=== PATIENT | female | born 1960 | race African-American/Black ===

== ENCOUNTER 2016-11-09 11:28 | Inpatient (IN) ==
[2016-11-09] MEDS ORDERED: SODIUM CHLORIDE 0.9% 500 ML IV STA (12:00)
[2016-11-09] MEDS ORDERED: ONDANSETRON 4 MG/2 ML VIAL IV STA (12:00)
[2016-11-09] MEDS ORDERED: hydrALAZINE 20 MG/1 ML VIAL IV STA ×2 (12:01→15:04)
[2016-11-09] MEDS ORDERED: OXYMETAZOLINE 0.05% NASAL SPRAY 15 ML BOTTLE BOTH NARES STA (12:01)
[2016-11-09] MEDS ORDERED: OXYMETAZOLINE 0.05% NASAL SPRAY 15 ML BOTTLE ONE (12:02)
[2016-11-09] MEDS ORDERED: hydrALAZINE 20 MG/1 ML VIAL ONE ×3 (12:02→15:17)
[2016-11-09] MEDS ORDERED: ONDANSETRON 4 MG/2 ML VIAL ONE ×2 (12:02→14:57)
--- NOTE | 2016-11-09 12:08 | Emergency Department Note ---
Jorge Luis Marlow Meredith, am scribing for, and in the presence of, Josh Barrientos MD 12: 01. Iliana Marlow James D, MD, personally performed the services described in this documentation, ascribed by Miranda Kang in my presence, and it is both accurate and complete . Arrival - Arrival Chief Complaint: Nausea/Vomiting/Diarrhea Stated Complaint: projectile vomiting ED Nursing Triage Note: Patient transferred from [facility] with vomiting that started last night times two and persistent vomiting this morning without coffee ground emesis or bright red blood present in her vomit. Mode of Arrival: Stretcher Limitations: Altered Mental Status (non-verbal) Source: Old Records Reviewed, RN Notes Reviewed Time Seen by Provider: 11/09/16 12:00 - History of Present Illness HPI Narrative: Pt is a 55 y/o black female transferred to the ED by EMS from [facility] with nausea and persistent vomiting which onset last night. She has not had coffee ground emesis or hematemesis. Pt has a history of PVD, HTN, NIDDM, pneumonia, GERD, and left AKA. Onset (ago): day(s) Allergies/Adverse Reactions: Allergies Allergy/AdvReac Type Severity Reaction Status Date / Time No Known Allergies Allergy Unverified 07/31/16 20:08 Home Medications: Home Medications Medication Instructions Recorded Confirmed Type Carvedilol 25 mg PEG BID 11/09/16 11/09/16 History Esomeprazole Magnesium 20 mg PEG 1600 11/09/16 11/09/16 History [Esomeprazole] Insulin Glargine [Lantus] 14 unit SUBCUT 1800 11/09/16 11/09/16 History Isosorbide Dinitrate [Isordil] 20 mg PEG TID 11/09/16 11/09/16 History Lisinopril 20 mg PEG 0800 11/09/16 11/09/16 History amLODIPine [Norvasc] 10 mg PEG 0800 11/09/16 11/09/16 History hydrALAZINE TAB [Apresoline Tab] 50 mg PEG TID 11/09/16 11/09/16 History Review of System - Review of System ROS unobtainable: other (non-verbal) 12 point system: reviewed and no additional remarkable complaints except as stated - Review of System Gastrointestinal: Present: as per HPI, nausea, vomiting. Absent: hematemesis Medical,Surgical,& Family Hx - Medical History Cardio: History of: Hypertension, PVD Endocrine: History of: Diabetes Mellitus (NIDDM) Respiratory: History of: Pneumonia Gastrointestinal: History of: GERD, GI Problems (constipation; PEG tube) Musculoskeletal: History of: Amputation (left AKA) - Surgical History Abdominal Surgeries: Patient denies: Splenectomy - Family History Family History: Reports;: Family Hypertension - Social History Smoking Status: Never smoker Frequency of Alcohol Use: Unknown Type of Drug Use: None Exam Physical Examination: GENERAL: This is chronically ill appearing black female in no apparent distress. VITAL SIGNS: Temperature: 97.5, Pulse: 75, Respirations: 22, Blood pressure: 171 /105, O2 Saturation: 97 HEENT: Head is normocephalic and atraumatic. Pupils are equally round and reactive to light. Extraocular movement are intact. Oropharynx is benign with moist mucous membranes. NECK: Neck is soft and supple without tenderness. There are no masses. There is no lymphadenopathy. LUNGS: Lungs are clear to auscultation bilaterally. Chest rises symmetrically. There is no chest wall tenderness. CV: Heart is regular rate and rhythm without murmurs, rubs, or gallops. ABDOMEN: Abdomen is soft, non-tender to palpation. There are no abnormal masses palpated. There is no organomegaly. Bowel sounds are present and active. PEG tube in the epigastrium noted. SKIN: Skin is warm and dry. No rash. EXTREMITIES: Patient has full range of motion without tenderness. There is no pedal edema. Left AKA. NEUROLOGIC: Awake and alert. At baseline mental status. Cranial nerves II through XII are grossly intact. Right leg flexion contractures. PSYCHIATRIC: Normal affect. Normal mood. Vital Signs: Vital Signs Temperature 97.9 F 11/09/16 11:31 Pulse Rate 77 11/09/16 14:40 Respiratory Rate 20 11/09/16 14:40 Blood Pressure 156/96 11/09/16 14:40 O2 Sat by Pulse Oximetry 98 11/09/16 14:40 - General Exam limited due to: other (non-verbal) Course - Consultations Consultation #1: Discussed with hospitalist. Patient will be admitted to their service. Time: 14:42 Results - Labs CBC & BMP: 11/09/16 14:41 11/09/16 14:41 Lab Results: I have reviewed the patients labs - Diagnostic Findings Procedure: Chest x-ray: report reviewed by me (There is mild to moderate distention of the transverse and sigmoid colon which may reflect ileus. Gastrostomy tube projects over the left upper quadrant. Diffuse osteopenia. ) Disposition Clinical Impression: Nausea & vomiting, Dementia, Diabetes mellitus, Suspect aspiration pneumonitis , Dehydration, Hypernatremia Case discussed with: patient Disposition: Still a Patient Condition: Stable Time of Disposition: 15:38
--- NOTE | 2016-11-09 12:55 | XRay Report ---
XR abdomen complete w decub Indication: Nausea, vomiting and diarrhea Comparison: Abdominal x-ray dated July 31, 2016 Technique: Frontal views of the abdomen in supine and lateral decubitus positions. Findings: There is mild to moderate distention of the transverse and sigmoid colon which may reflect ileus. Continued imaging follow-up is recommended as early sigmoid volvulus may have this appearance. Gastrostomy tube projects over the left upper quadrant. Diffuse osteopenia. IMPRESSION: As above. PROCEDURE INTERPRETED AT [facility] DEPARTMENT OF RADIOLOGY Final Report Signed by: Dr Freedom Freeman
[2016-11-09] MEDS ORDERED: THIAMINE 200 MG/2 ML VIAL ONE (13:42)
[2016-11-09] MEDS ORDERED: LORazepam 2 MG/1 ML VIAL ONE ×2 (13:43→14:58)
--- NOTE | 2016-11-09 14:30 | Post Interventional Procedure ---
Pre-op diagnosis: No PIV access, CVA, gastroenteritis Post-op diagnosis: same Procedure: PICC RUE after multiple failed attempts at placing US guided PIV Radiologist: Ceasar Gonzalez Anesthesia: local Specimens: none sent Estimated blood loss: none Complications: none Condition: stable
[2016-11-09] MEDS ORDERED: PIPERACILLIN/TAZOBACTAM 3,375 MG in SODIUM CHLORIDE 0.9% 100 ML IV STA (14:34)
[2016-11-09] MEDS ORDERED: LORazepam 2 MG/1 ML VIAL IV STA (14:53)
[2016-11-09] MEDS ORDERED: PIPERACILLIN/TAZOBACTAM 3,375 MG VIAL IV ONE (14:57)
[2016-11-09] MEDS ORDERED: SODIUM CHLORIDE 0.9% 1,000 ML IV SCH ×2 (15:00→16:00)
[2016-11-09 15:03] LABS: Basophils % 0.2 % (0.0-0.8); Eosinophils # 0.1 10*3/uL (0.0-0.87); Eosinophils % 0.7 % (0.00-10.9); Hematocrit 34.3 VOL% (35.7-47.0); Hemoglobin 10.9 GM/DL (12.0-16.0); Immature Granulocytes % 0.3 %; Immature Granulocytes Absolute 0.03 #; Lymphocytes # 0.7 10*3/uL (1.4-4.0); Lymphocytes % 6.8 % (21.3-54.2); Mean Corpuscular HGB Conc 31.8 GM/DL (32-36); Mean Corpuscular Hemoglobin 31 PG (27-34); Mean Corpuscular Volume 96.6 FL (87-102); Mean Platelet Volume 11.7 FL (9.6-12.0); Monocytes # 0.7 10*3/uL (0.11-0.8); Monocytes % 6.6 % (1.7-12.7); Neutrophils # 8.5 10*3/uL (1.4-7.4); Neutrophils % 85.4 % (38.7-73.9); Platelet Count 247 T/CUMM (130-400); Red Blood Count 3.55 MC/CUMM (3.8-5.5); Red Cell Distribution Width 16.3 % (9.3-17.3)
--- NOTE | 2016-11-09 15:07 | Interventional Radiology Rpt ---
IR PICC line insertion, US guide vascular access Indication: No peripheral IV access. PICC LINE AT BEDSIDE Description: A formal timeout was performed. Maximum sterile barrier technique was used. Sonographic evaluation of the right upper extremity demonstrates patent and compressible brachial vein. The upper arm was prepped and draped in sterile fashion. 3 cc 1% lidocaine was administered subcutaneously. Under sonographic guidance, a micropuncture needle was advanced into the vein. A captured sonographic image documents the position of the needle. Needle was exchanged over a wire for a peel-away sheath. Guidewire was advanced centrally to a depth of 40 cm. A dual lumen power PICC, 35 cm long, was advanced over the wire. The wire and sheath were removed. Portable chest x-ray was obtained documenting position of the catheter tip at the RA-SVC junction. Both ports of the PICC were aspirated and flushed with heparinized saline. The device was secured with a StatLock. Impression: PICC line ready for immediate use. Routine catheter care. Chest radiograph detailed above post procedure. PROCEDURE INTERPRETED AT [facility] DEPARTMENT OF RADIOLOGY Final Report Signed by: Ceasar Gonzalez M.D.
[2016-11-09 15:24] LABS: Alanine Aminotransferase 52 U/L (13-56); Albumin 3.5 G/DL (3.4-5.0); Alkaline Phosphatase 140 U/L (45-117); Aspartate Amino Transferase 26 U/L (0-37); Bilirubin,Total < 0.39 MG/DL (0.2-1.0); Blood Urea Nitrogen 32 MG/DL (7-18); Calcium 9.6 MG/DL (8.5-10.1); Glucose 132 MG/DL (74-106); Osmolality,Calculated 307.9 MOS/KG (273-304); Potassium 3.8 MMOL/L (3.5-5.1); Sodium 151 MMOL/L (136-145); Total Protein 7.8 G/DL (6.4-8.3)
[2016-11-09] MEDS ORDERED: ACETAMINOPHEN 325 MG TABLET PO PRN (15:47)
[2016-11-09] MEDS ORDERED: ONDANSETRON 4 MG/2 ML VIAL IV PRN (15:47)
[2016-11-09] MEDS ORDERED: ENOXAPARIN 40 MG/0.4 ML SYRINGE SUBCUT SCH (16:00)
[2016-11-09 17:00] LABS: ABG Base Excess 4.1 MMOL/L (-2.5-2.5); ABG HCO3 28.1 MMOL/L (20-26); ABG Oxygen Saturation 96.9 % (95-100); ABG PCO2 39.5 MM HG (35-48); ABG PH 7.461 (7.35-7.45); ABG PO2 81.3 MM HG (80-95); ABG TCO2 25.3 MMOL/L (23-27); Allen Test Positive; Pt O2 Delivery Device Room Air
--- NOTE | 2016-11-09 18:20 | XRay Report ---
History: Vomiting Date: 11/09/2016 Study: Chest x-ray single view Comparison exam: Chest x-ray August 01, 2016 The right PICC line is well-positioned with its tip over the atriocaval junction region. There is continued mild cardiomegaly. The mediastinal contour is unchanged. The pulmonary vasculature is not engorged. There is a probable underlying mild to moderate hiatal hernia. There is no gross pleural effusion. The lungs are generally clear. Shallow breath. Osseous structures are unchanged. There is mild thoracic spondylosis and mild osteopenia. Impression: No definite acute process. Satisfactory positioning of the right PICC line. Stable cardiomegaly PROCEDURE INTERPRETED AT [facility] DEPARTMENT OF RADIOLOGY Final Report Signed by: Dr. Kristin Flores
[2016-11-09] MEDS ORDERED: DEXTROSE 50% 25 GM/50 ML VIAL IV PRN (18:25)
[2016-11-09] MEDS ORDERED: GLUCAGON 1 MG VIAL IM PRN (18:25)
--- NOTE | 2016-11-09 18:35 | Fluoroscopy Report ---
History: Sigmoid volvulus Date: 11/09/2016 Study: Single contrast Gastrografin enema Comparison exam: No previous similar The acquisition analyst film shows a large amount of stool overlying the rectum. There is no lucien bowel obstruction. A PEG tube overlies the left upper abdomen. Dilute Gastrografin was instilled in a retrograde fashion under intermittent fluoroscopy. The colon was evaluated to the hepatic flexure level. The patient could not retain barium, limiting evaluation of the right colon. 1.08 minutes fluoroscopy time was utilized. This radiologist provided personal supervision of the procedure. There is a large amount of retained stool in the rectum and colon suggesting constipation. There are some occasional scattered diverticula. There is no evidence of sigmoid volvulus. There is no evidence of gross mass lesion or obstruction from the level of the rectum to the hepatic flexure. There is no abnormal distention of the right colon to indirectly suggest colonic obstruction otherwise. Impression: No evidence of sigmoid volvulus. Large amount of retained stool in the rectum and colon suggesting constipation. Diverticulosis. Incomplete evaluation of the right colon because of patient's inability to retain the contrast, though there is no indirect evidence to suggest colonic obstruction otherwise PROCEDURE INTERPRETED AT [facility] DEPARTMENT OF RADIOLOGY Final Report Signed by: Dr. Kristin Flores
[2016-11-09 19:57] LABS: Hematocrit 32.5 VOL% (35.7-47.0); Hemoglobin 10.1 GM/DL (12.0-16.0)
[2016-11-09] MEDS: PANTOPRAZOLE 40 MG VIAL IV SCH (20:53)
[2016-11-09] MEDS: CARVEDILOL 25 MG TABLET PEG SCH ×2 (20:53→21:26)
[2016-11-09] MEDS: ISOSORBIDE DINITRATE 20 MG TABLET PEG SCH ×2 (20:53→21:26)
[2016-11-09] MEDS: INSULIN GLARGINE 100 UNIT/ML SUBCUT SCH (20:53)
--- NOTE | 2016-11-09 20:57 | Gastrointestinal Consult Note ---
Assessment and Plan (1) Coffee ground emesis Status: Acute Assessment and plan: This patient does have a fair amount of emesis noted suctioning from her PEG tube. This may be secondary to the previous nausea and vomiting with a Prema- Xiao tear, there may be peptic ulcer disease, gastritis, AVMs in the stomach, or potentially gastric cancer. Occasionally the PEG tube will actually produce a pressure necrosis ulcer on the contralateral wall as well and we will examine for this. Note that the patient's last upper endoscopy done 2012 for nausea and vomiting did not show much. I would avoid anticoagulation in this patient and I agree with the use of Protonix twice daily. We will likely proceed with upper endoscopy on 11/11/16 to find an etiology for the coffee-ground emesis and anemia. Risks and benefits were discussed with the patient's who is at the bedside and include but are not limited to: Bleeding, infection, cardiac/ pulmonary compromise, and perforation. Current Visit: Yes (2) Dysphagia as late effect of cerebrovascular accident (CVA) Status: Acute Assessment and plan: This patient had a PEG tube placed probably about 5 years ago before going to the longterm. This is been replaced multiple times. The current PEG tube is actually quite small. If we need to replace this we will certainly replaced with a 20 Portuguese PEG tube possibly endoscopically. Current Visit: Yes (3) Anemia, posthemorrhagic, acute Status: Acute Assessment and plan: Patient's hematocrit is only down to 32% she certainly does not need a transfusion this point we will continue to monitor her level as she continues rehydrating her and consider transfusion if necessary. Current Visit: Yes (4) Chronic constipation Status: Acute Assessment and plan: The patient was thought to have a volvulus today and did go to a Hypaque barium enema in order to disprove this. The barium was not well retained however it does not appear there is any gross evidence of a sigmoid volvulus. There is simply chronic constipation and the patient will need to be able to come off of NG tube suctioning in order to undergo treatment with MiraLAX twice daily to help remedy the constipation. This may be related to the patient's prior iron intake. We will hold tube feedings for the present time while patient is on suction to her PEG tube in the short-term. She may benefit from IV Reglan if this becomes persistent. Current Visit: Yes History of Present Illness Chief complaint: coffee-ground emesis, anemia, constipation, no sigmoid volvulus History of present illness: Ms. Braxton is a 55 year old female who has a history of referral to our ER from [facility] with the patient is attended by Dr. Seng Elizabeth. She started developing acute onset of "projectile vomiting" starting at about 11 o' clock this morning. When she did not respond to initial medications at their institution she was sent to the emergency room for evaluation. There she was described as having coffee-ground emesis and indeed on suctioning of the stomach via the PEG tube she evidences at least 500 mL of coffee-ground material. The patient had nausea and vomiting issues going back to the last upper endoscope done by Dr. Ferguson on 05/24/13 for persistent nausea and vomiting and this demonstrated normal mucosa of the esophagus stomach and duodenum. The pyloric channel also appeared normal. Dr. Ferguson did not feel this was an acid related phenomenon but a motility issue. The patient was taken to CT scanning and there was some concern over possible sigmoid volvulus but the colon appeared relatively normal with some constipation noted. Her stools are dark black and mildly guaiac-positive in keeping with iron intake with some GI bleeding. The patient's hematocrit has dropped from 34.3% to 32.5 % over a period of 4 hours. The white blood cell count is only 10.0 on admission in a patient with a sodium of 151 indicating potential dehydration but a BUN and creatinine of 32 and 0.9. does admit the patient has constipation at baseline. Lipase level was 162. UA is pending. The patient herself is spitting some clearish secretions from her mouth, states that she is recently been started on CPAP over the last 1 month. Home Medications Medication Instructions Recorded Confirmed Type Carvedilol 25 mg PEG BID 11/09/16 11/09/16 History Esomeprazole Magnesium 20 mg PEG 1600 11/09/16 11/09/16 History [Esomeprazole] Ferrous Sulfate Liquid [Feosol 300 mg PO TID 11/09/16 11/09/16 History Liquid] Insulin Glargine [Lantus] 14 unit SUBCUT 1800 11/09/16 11/09/16 History Isosorbide Dinitrate [Isordil] 20 mg PEG TID 11/09/16 11/09/16 History Lisinopril 20 mg PEG 0800 11/09/16 11/09/16 History Magnesium Hydroxide Susp [Milk of 30 ml PO DAILY 11/09/16 11/09/16 History Magnesia] Multivit &Minerals/Ferrous Fum 9 mg PO DAILY 11/09/16 11/09/16 History [Multivitamin Liquid] Polyethylene Glycol Powder 17 gm PO MOWEFR 11/09/16 11/09/16 History [Miralax] amLODIPine [Norvasc] 10 mg PEG 0800 11/09/16 11/09/16 History hydrALAZINE TAB [Apresoline Tab] 50 mg PEG TID 11/09/16 11/09/16 History Allergies Allergy/AdvReac Type Severity Reaction Status Date / Time No Known Allergies Allergy Unverified 07/31/16 20:08 Medical,Surgical,& Family Hx - Medical History Cardio: History of: Hypertension, PVD Neurology: History of: Cerebrovascular Accident Endocrine: History of: Diabetes Mellitus (NIDDM) Respiratory: History of: Pneumonia Gastrointestinal: History of: GERD, GI Problems (constipation; PEG tube) Musculoskeletal: History of: Amputation (left AKA) - Surgical History Abdominal Surgeries: Patient denies: Splenectomy - Family History Family History: Reports;: Family Hypertension - Social History Smoking Status: Unknown if ever smoked Frequency of Alcohol Use: Unknown Type of Drug Use: None ROS unobtainable: due to dementia, other (severe expressive aphasia post stroke) Exam - Constitutional Vitals: Period Temp Pulse Resp BP Sys/Altamirano Pulse Ox Last 24 Hr 97.5 F 84-89 16-20 120-153/67-98 97-100 General appearance: mild distress Exam: Constitutional: Well-developed, well-nourished, the patient is able to look around but it is difficult to tell whether she is processing information, she is gurgling when she breathes and has copious oral secretions. Head and face: Head: Normocephalic atraumatic, facial swelling was noted. Eyes: Conjunctiva without injection, no gross scleral icterus Ears: Unable to assess Nose: External appearance is normal, nares patent Mouth: Oral mucous membranes moist without erythema dentition noted to be without erosion--she appears to have a full set of upper and lower teeth Neck: Normal appearance, no masses or tenderness, trachea midline Thyroid: Gland midline and appropriate size for age Respiratory: Normal respiratory effort, clear to auscultation without wheezes, rales-- a few rhonchi are noted in the bases Cardiovascular: Regular rate and rhythm, normal S1, S2, the exam is without rubs, murmurs or gallops. Gastrointestinal: Nontender to palpation, normal active bowel sounds, tone normal without rigidity or guarding, no masses present, no hepatomegaly, no spleen tip felt. The patient does have a PEG tube noted in the left upper quadrant towards the midline which one suctioned produces approximately half a liter of coffee-ground secretions. On rectal examination the stools or black and mildly guaiac-positive. Lymphatic: Neck without adenopathy, axilla without lymphadenopathy present Musculoskeletal: Right lower extremity without evidence of edema, left lower extremity demonstrates a AKA not far below the hip. Skin and subcutaneous tissue: No rashes or ulcerations noted, normal skin turgor, digits and nails without clubbing/cyanosis/deformities. Neurologic: Patient can open her eyes and doesn't wince with painful stimuli he will much else. She certainly does not follow my commands, unable to assess otherwise. Psychiatric: Unable to assess. Results - Labs CBC & BMP: 11/09/16 19:44 11/09/16 14:41
[2016-11-09] MEDS ORDERED: LABETALOL 20 MG/4 ML SYRINGE IV PRN (21:23)
[2016-11-09] MEDS: INSULIN LISPRO 100 UNIT/ML SUBCUT SCH (21:25)
[2016-11-09] MEDS: PIPERACILLIN/TAZOBACTAM 3,375 MG in SODIUM CHLORIDE 0.9% 100 ML IV SCH (21:54)
[2016-11-10] MEDS: INSULIN LISPRO 100 UNIT/ML SUBCUT SCH ×4 (01:59→17:46)
[2016-11-10] MEDS: PIPERACILLIN/TAZOBACTAM 3,375 MG in SODIUM CHLORIDE 0.9% 100 ML IV SCH ×3 (05:35→21:46)
[2016-11-10 06:43] LABS: Basophils % 0.2 % (0.0-0.8); Eosinophils % 0.2 % (0.00-10.9); Hematocrit 29.7 VOL% (35.7-47.0); Hemoglobin 9.1 GM/DL (12.0-16.0); Immature Granulocytes % 0.3 %; Immature Granulocytes Absolute 0.03 #; Lymphocytes # 1.2 10*3/uL (1.4-4.0); Lymphocytes % 13.8 % (21.3-54.2); Mean Corpuscular HGB Conc 30.6 GM/DL (32-36); Mean Corpuscular Hemoglobin 30 PG (27-34); Mean Corpuscular Volume 99.3 FL (87-102); Mean Platelet Volume 12.5 FL (9.6-12.0); Monocytes % 11.7 % (1.7-12.7); Neutrophils # 6.4 10*3/uL (1.4-7.4); Neutrophils % 73.8 % (38.7-73.9); Platelet Count 208 T/CUMM (130-400); Red Blood Count 2.99 MC/CUMM (3.8-5.5); Red Cell Distribution Width 16.8 % (9.3-17.3); White Blood Count 8.6 T/CUMM (4-12)
[2016-11-10 07:12] LABS: Alanine Aminotransferase 42 U/L (13-56); Albumin 3.1 G/DL (3.4-5.0); Alkaline Phosphatase 109 U/L (45-117); Aspartate Amino Transferase 17 U/L (0-37); Bilirubin,Total < 0.39 MG/DL (0.2-1.0); Blood Urea Nitrogen 34 MG/DL (7-18); Calcium 9.1 MG/DL (8.5-10.1); Glucose 44 MG/DL (74-106); Potassium 3.5 MMOL/L (3.5-5.1); Sodium 157 MMOL/L (136-145)
[2016-11-10] MEDS ORDERED: GLUCAGON 1 MG VIAL IM PRN (08:45)
[2016-11-10] MEDS ORDERED: DEXTROSE 50% 25 GM/50 ML VIAL IV PRN (08:45)
--- NOTE | 2016-11-10 08:53 | Gastrointestinal Progress Note ---
Assessment and Plan (1) Coffee ground emesis Status: Acute Assessment and plan: This patient does have a fair amount of emesis noted suctioning from her PEG tube. This may be secondary to the previous nausea and vomiting with a Prema- Xiao tear, there may be peptic ulcer disease, gastritis, AVMs in the stomach, or potentially gastric cancer. Occasionally the PEG tube will actually produce a pressure necrosis ulcer on the contralateral wall as well and we will examine for this. Note that the patient's last upper endoscopy done 2012 for nausea and vomiting did not show much. I would avoid anticoagulation in this patient and I agree with the use of Protonix twice daily. We will likely proceed with upper endoscopy on 11/11/16 to find an etiology for the coffee-ground emesis and anemia. Risks and benefits were discussed with the patient's who is at the bedside and include but are not limited to: Bleeding, infection, cardiac/ pulmonary compromise, and perforation. 11/10/16-- the patient's NG tube canister only filled with 300 mL over the evening time. The patient was noted to have some hypoglycemia this morning her blood sugar down to 44. At this particular point I think it is reasonable to go ahead and restart her on a low rate of continuous tube feeds and see how she tolerates this in terms of residuals. She is somewhat dehydrated with a sodium at 157 and I'm going to start some IV fluids with half-normal saline at 125 with some potassium. My plan is to scope her tomorrow to see if we can find with his bleeding is coming from. Her hematocrit continues to drop, despite the dehydration, currently down to 34.3% down to 29.7% now. Current Visit: Yes (2) Dysphagia as late effect of cerebrovascular accident (CVA) Status: Acute Assessment and plan: This patient had a PEG tube placed probably about 5 years ago before going to the [place] [facility]. This is been replaced multiple times. The current PEG tube is actually quite small. If we need to replace this we will certainly replaced with a 20 Uzbek PEG tube possibly endoscopically. 11/10/16-- This patient's PEG tube may be feeding into a GI bleed picture if the balloon is produced a contralateral wall erosion. We will evaluate with endoscopy tomorrow. Current Visit: Yes (3) Anemia, posthemorrhagic, acute Status: Acute Assessment and plan: Patient's hematocrit is only down to 32% she certainly does not need a transfusion this point we will continue to monitor her level as she continues rehydrating her and consider transfusion if necessary. 11/10/16--This is currently now down to 29.7% this is most certainly due associated with the coffee-ground emesis. Endoscopic evaluation tomorrow, possible discharge after this as she is stable. Current Visit: Yes (4) Chronic constipation Status: Acute Assessment and plan: The patient was thought to have a volvulus today and did go to a Hypaque barium enema in order to disprove this. The barium was not well retained however it does not appear there is any gross evidence of a sigmoid volvulus. There is simply chronic constipation and the patient will need to be able to come off of NG tube suctioning in order to undergo treatment with MiraLAX twice daily to help remedy the constipation. This may be related to the patient's prior iron intake. We will hold tube feedings for the present time while patient is on suction to her PEG tube in the short-term. She may benefit from IV Reglan if this becomes persistent. 11/10/16-- we'll start some MiraLAX today now that the PEG tube is being utilized. Current Visit: Yes Gastroenterology - PN: Subj Interval history: She is doing better today after being started on CPAP last night. She is breathing more cough typically. The PEG tube did put out some coffee-ground emesis approximately 300 mL since her admission but this slowed down significantly. She was hypoglycemic this morning with a blood sugar of 44. I would like to start her tube feeds back at a low rate, 40 mL continuous. Her sodium is up to 157 going to start some IV fluids as well. She is rather somnolent this morning and does not respond but her indicates this is her baseline. He is at the bedside. Exam (Progress Note) - Constitutional Vitals: Period Temp Pulse Resp BP Sys/Altamirano Pulse Ox Last 24 Hr 97.5 F-98.7 F 54-89 16-20 120-153/67-98 95-100 General appearance: no acute distress - Head Head exam: Present: normocephalic - Eye Eye exam: Present: periorbital swelling - ENT ENT exam: Present: normal exam - Respiratory Respiratory exam: Present: clear to auscultation bilaterally. Absent: rhonchi, stridor - Cardiovascular Cardiovascular exam: Present: regular rate and rhythm - GI/Abdominal GI/Abdominal exam: Present: normal bowel sounds, distended, soft. Absent: tenderness, rebound - Neurological Exam Neurological exam: Present: altered (somnolent) - Psychiatric Psychiatric exam: Present: flat affect - Skin Skin exam: Present: warm Results - Labs CBC & BMP: 11/10/16 04:41 11/10/16 04:41
[2016-11-10] MEDS ORDERED: PANTOPRAZOLE 40 MG VIAL IV SCH (09:00)
[2016-11-10] MEDS: amLODIPine 10 MG TABLET PEG SCH (09:17)
[2016-11-10] MEDS: LISINOPRIL 20 MG TABLET PEG SCH (09:17)
[2016-11-10] MEDS: PANTOPRAZOLE 40 MG VIAL IV SCH ×2 (09:17→20:25)
[2016-11-10] MEDS: POLYETHYLENE GLYCOL POWDER 17 GM PACK PEG SCH ×2 (09:20→20:25)
--- NOTE | 2016-11-10 09:38 | Hospitalist Progress Note ---
Hospitalist: Subjective Interval history: Patient resting comfortably this morning, GI saw today started on some IV fluids and morbid continue to watch her for bleeding and start some tube feedings Exam - Constitutional Vitals: Period Temp Pulse Resp BP Sys/Altamirano Pulse Ox Last 24 Hr 97.5 F-98.7 F 54-89 16-20 120-153/67-98 95-100 Results - Labs CBC & BMP: 11/10/16 04:41 11/10/16 04:41
[2016-11-10 09:44] LABS: Hematocrit 29.3 VOL% (35.7-47.0)
[2016-11-10] MEDS: SODIUM CHLORIDE 0.45% 1,000 ML IV SCH (12:23)
[2016-11-10] MEDS: SODIUM CHLOR 0.45% KCL 20 MEQ 20 MEQ/1,000 ML BAG IV SCH (12:26)
[2016-11-10 17:13] LABS: Hematocrit 27.1 VOL% (35.7-47.0); Hemoglobin 8.3 GM/DL (12.0-16.0)
[2016-11-10] MEDS: INSULIN GLARGINE 100 UNIT/ML SUBCUT SCH (17:47)
[2016-11-11] MEDS: INSULIN LISPRO 100 UNIT/ML SUBCUT SCH ×4 (00:15→17:28)
[2016-11-11] MEDS: SODIUM CHLOR 0.45% KCL 20 MEQ 20 MEQ/1,000 ML BAG IV SCH ×2 (05:43→06:38)
[2016-11-11] MEDS: PIPERACILLIN/TAZOBACTAM 3,375 MG in SODIUM CHLORIDE 0.9% 100 ML IV SCH ×3 (06:10→21:47)
[2016-11-11 06:45] LABS: Basophils # 0.1 10*3/uL (0.0-0.2); Basophils % 0.8 % (0.0-0.8); Eosinophils # 0.2 10*3/uL (0.0-0.87); Eosinophils % 2.8 % (0.00-10.9); Hematocrit 27.5 VOL% (35.7-47.0); Hemoglobin 8.3 GM/DL (12.0-16.0); Immature Granulocytes % 0.3 %; Immature Granulocytes Absolute 0.02 #; Lymphocytes # 1.5 10*3/uL (1.4-4.0); Lymphocytes % 23.7 % (21.3-54.2); Mean Corpuscular HGB Conc 30.2 GM/DL (32-36); Mean Corpuscular Hemoglobin 30 PG (27-34); Mean Corpuscular Volume 99.3 FL (87-102); Mean Platelet Volume 12.4 FL (9.6-12.0); Monocytes # 0.9 10*3/uL (0.11-0.8); Monocytes % 13.4 % (1.7-12.7); Neutrophils # 3.7 10*3/uL (1.4-7.4); Platelet Count 193 T/CUMM (130-400); Red Blood Count 2.77 MC/CUMM (3.8-5.5); White Blood Count 6.3 T/CUMM (4-12)
[2016-11-11 07:13] LABS: Albumin 2.8 G/DL (3.4-5.0); Bilirubin,Total 0.4 MG/DL (0.2-1.0); Calcium 8.3 MG/DL (8.5-10.1); Osmolality,Calculated 309.3 MOS/KG (273-304); Total Protein 6.4 G/DL (6.4-8.3)
--- NOTE | 2016-11-11 09:28 | Hospitalist Progress Note ---
Assessment and Plan (1) Dysphagia as late effect of cerebrovascular accident (CVA) Status: Acute Current Visit: Yes (2) Anemia, posthemorrhagic, acute Status: Acute Assessment and plan: 4E scope today patient has been stable he's her CPAP at night hopefully home soon if we can clear while she's bleeding Current Visit: Yes Hospitalist: Subjective Interval history: Patient without complaints this morning she is tolerating wearing her CPAP reasonably well she just uses at night. She's for e scope today Exam - Constitutional Vitals: Period Temp Pulse Resp BP Sys/Altamirano Pulse Ox Last 24 Hr 98.6 F-99.3 F 63-84 12-20 129-164/72-84 98-100 Exam: Constitutional: General appearance is normal Eyes: Pupils equal round react to light and accommodation conjunctiva and lids are normal Neck: supple without masses Respiratory: Respiratory effort is normal. Lungs are clear to auscultation. Resonant to percussion. Cardiac: Regular rate and rhythm without murmur rub or gallop. PMI at the midclavicular line by palpation. Carotid arteries 2+ palpation no bruits GI: Bowel sounds normoactive, no tenderness or rebound tenderness, no organomegaly Extremities: no clubbing cyanosis or edema Results - Labs CBC & BMP: 11/11/16 06:19 11/11/16 06:19
[2016-11-11] MEDS: PANTOPRAZOLE 40 MG VIAL IV SCH ×2 (10:07→20:11)
--- NOTE | 2016-11-11 10:20 | Gastrointestinal Progress Note ---
Assessment and Plan (1) Coffee ground emesis Status: Acute Assessment and plan: This patient does have a fair amount of emesis noted suctioning from her PEG tube. This may be secondary to the previous nausea and vomiting with a Prema- Xiao tear, there may be peptic ulcer disease, gastritis, AVMs in the stomach, or potentially gastric cancer. Occasionally the PEG tube will actually produce a pressure necrosis ulcer on the contralateral wall as well and we will examine for this. Note that the patient's last upper endoscopy done 2012 for nausea and vomiting did not show much. I would avoid anticoagulation in this patient and I agree with the use of Protonix twice daily. We will likely proceed with upper endoscopy on 11/11/16 to find an etiology for the coffee-ground emesis and anemia. Risks and benefits were discussed with the patient's who is at the bedside and include but are not limited to: Bleeding, infection, cardiac/ pulmonary compromise, and perforation. 11/10/16-- the patient's NG tube canister only filled with 300 mL over the evening time. The patient was noted to have some hypoglycemia this morning her blood sugar down to 44. At this particular point I think it is reasonable to go ahead and restart her on a low rate of continuous tube feeds and see how she tolerates this in terms of residuals. She is somewhat dehydrated with a sodium at 157 and I'm going to start some IV fluids with half-normal saline at 125 with some potassium. My plan is to scope her tomorrow to see if we can find with his bleeding is coming from. Her hematocrit continues to drop, despite the dehydration, currently down to 34.3% down to 29.7% now. 11/11/16--the patients blood sugars are improved with tube feeds and with IV fluids. Now in the ED range. Her sodium is down to 155, hematocrit is down down to 27.5%. The upper endoscopy demonstrated a large hiatal hernia with a Prema-Xiao tear at the base. This proved to be the source of bleeding. The PEG tube site looked all right, there was minimal linear gastritis noted in remaining stomach. There was a suspicious-appearing possible mass between the valleculae and piriform sinus on the right side of patient. This may require referral to ENT for biopsy. Considering the patient's limited prognosis family may elect to have no further workup for this lesion. Current Visit: Yes (2) Dysphagia as late effect of cerebrovascular accident (CVA) Status: Acute Assessment and plan: This patient had a PEG tube placed probably about 5 years ago [facility] This is been replaced multiple times. The current PEG tube is actually quite small. If we need to replace this we will certainly replaced with a 20 [place] Islander PEG tube possibly endoscopically. 11/10/16-- This patient's PEG tube may be feeding into a GI bleed picture if the balloon is produced a contralateral wall erosion. We will evaluate with endoscopy tomorrow. 11/11/16-- see above concerning the right vallecular fullness/mass. This may require further evaluation by ENT. The bleeding did not appear to be due to the PEG tube which is in place for the patient's post stroke dysphagia. Tube feedings can resume immediately. Current Visit: Yes (3) Anemia, posthemorrhagic, acute Status: Acute Assessment and plan: Patient's hematocrit is only down to 32% she certainly does not need a transfusion this point we will continue to monitor her level as she continues rehydrating her and consider transfusion if necessary. 11/10/16--This is currently now down to 29.7% this is most certainly due associated with the coffee-ground emesis. Endoscopic evaluation tomorrow, possible discharge after this as she is stable. 11/11/16-- again the anemia appeared to be due to a Prema-Xiao tear that was visible at the apex of a large hiatal hernia, this should heal on its own provider the patient does not have further nausea and vomiting. Current Visit: Yes (4) Chronic constipation Status: Acute Assessment and plan: The patient was thought to have a volvulus today and did go to a Hypaque barium enema in order to disprove this. The barium was not well retained however it does not appear there is any gross evidence of a sigmoid volvulus. There is simply chronic constipation and the patient will need to be able to come off of NG tube suctioning in order to undergo treatment with MiraLAX twice daily to help remedy the constipation. This may be related to the patient's prior iron intake. We will hold tube feedings for the present time while patient is on suction to her PEG tube in the short-term. She may benefit from IV Reglan if this becomes persistent. 11/10/16-- we'll start some MiraLAX today now that the PEG tube is being utilized. 11/11/16-- Continue new MiraLAX. Current Visit: Yes Gastroenterology - PN: Subj Interval history: The patient has no new complaints. Slight temp up to 99 last night-- her hematocrit remains stable having dropped from 29% to 27% over the last 48 hours. Exam (Progress Note) - Constitutional Vitals: Period Temp Pulse Resp BP Sys/Altamirano Pulse Ox Last 24 Hr 98.6 F-99.3 F 63-84 12-20 129-164/72-84 98-100 General appearance: normal weight - Head Head exam: Present: normal inspection - Respiratory Respiratory exam: Present: clear to auscultation bilaterally. Absent: rhonchi, wheezes - Cardiovascular Cardiovascular exam: Present: regular rate and rhythm - GI/Abdominal GI/Abdominal exam: Present: normal bowel sounds, distended, tenderness ( epigastric), soft, other (PEG tube in place in the mid left upper quadrant) - Extremities Exam Extremities exam: Present: edema (trace) - Neurological Exam Neurological exam: Present: alert, oriented X3 - Psychiatric Psychiatric exam: Present: flat affect - Skin Skin exam: Present: warm Results - Labs CBC & BMP: 11/11/16 06:19 11/11/16 06:19
[2016-11-11] MEDS ORDERED: LIDOCAINE 2% 5 ML VIAL ONE (10:28)
[2016-11-11] MEDS ORDERED: ETOMIDATE 20 MG/10 ML VIAL IV ONE (10:28)
[2016-11-11] MEDS ORDERED: PROPOFOL 200 MG/20 ML VIAL IV ONE (10:28)
--- NOTE | 2016-11-11 10:53 | Anesthesia ---
Anesthesia Post OP - Post Ansesthetic Evaluation Patient seen in post op: Yes Resp: within normal limits CV: within normal limits Mental: within normal limits Temp: within normal limits Hwam-Tc-Mvsntsthi: within normal limits Nausea and Vomiting: within normal limits Pain: within normal limits
--- NOTE | 2016-11-11 11:03 | Operative Note ---
Date of procedure: 11/11/16 Pre-op diagnosis: hematemesis with drop in patient's hematocrit from 34-->27% Post-op diagnosis: other (This patient has what appears to be fairly significant Prema-Xioa tear at the EG junction which was weeping some blood at the end of the case, 7 cm hiatal hernia, PEG tube site noted to be normal without evidence of contralateral ulceration. Linear gastritis, gastric polyps noted incidentally status post biopsy for Helicobacter pylori.) Procedure: PROCEDURE: Esophagogastroduodenoscopy (EGD) with cold biopsy for pathology REFERRING PHYSICIAN: Alma Lema M.D. INDICATIONS: This is a patient with hematemesis who dropped her hematocrit down from 34% to 27% and her coffee-ground emesis in her PEG tubeThe prior H&P was reviewed and interrim changes are as noted: No change from GI consultation 2 days ago ENDOSCOPIST: Jordy Higgins MD ENDOSCOPE: Olympus Video 100 System upper endoscope ASA CLASS: 4 EXAM: CV: regular rate and rhythm Respiratory: Clear without wheezes Abdominal: active bowel sounds MEDICATION: Per nursing anesthesia protocol, see their notes PROCEDURE: After discussion of the potential risks and benefits of upper endoscopy, the informed consent was obtained. The patient was then placed in the left lateral decubitus position where sedation was achieved as noted above. Esophageal intubation was performed without difficulty, and the endoscope was advanced through the esophagus, stomach and duodenum. A slow withdrawal was then performed with retroflexion in the stomach for careful inspection of the incisura angularis, fundus and cardia. The scope was then returned to a neutral position and withdrawn through the esophagus. The patient tolerated the procedure well and without complication. BIOPSIES: Gastric antrum/body PHOTOGRAPHS: Obtained FINDINGS: Hypopharynx and Larynx: Normal Esohagoscopy Upper and middle thirds: Normal Lower third normal Esophogastric junctions: A slight amount of lower esophageal stricturing above a large hiatal hernia with a Prema-Xiao tear here that appear to be actively weeping of blood Gastroscopy: Cardia/Fundus: 7 cm hiatal hernia otherwise normal again Prema-Xiao tear noted at the EG junction Body: Linear gastritis, biopsies obtained, biopsied for Helicobacter pylori, corkscrew shaped stomach, PEG tube site noted (24 Italian) Antrum and pylorus linear gastritis with a few small polyps, biopsied for Helicobacter pylori Duodenoscopy: Bulb normal Second and third portions: Normal IMPRESSION: This patient has what appears to be fairly significant Prema- Xiao tear at the EG junction which was weeping some blood at the end of the case, 7 cm hiatal hernia, PEG tube site noted to be normal without evidence of contralateral ulceration. Linear gastritis, gastric polyps noted incidentally status post biopsy for Helicobacter pylori. RECOMMENDATIONS: Follow up for biopsy results in 1-2 weeks by phone [phone] Continue anti-gastroesophageal reflux measures (avoid carbonated and acidic beverages, avoid eating within 2 hours of bedtime, avoid tight fitting clothing , and elevate the front bed posts 6 inches prior to sleeping. Patient to be restarted on her tube feeds and observed over the next 24 hours, she can be sent back to the [facility] tomorrow, if stable. If ongoing regurgitation noted we can certainly add Reglan as our next step, and probably evaluate with small bowel follow-through to look for ileus versus partial obstruction. Jordy Higgins MD COPY TO: Alma Lema M.D. Anesthesia: MAC Surgeon / Physician: Jordy Higgins Estimated blood loss: minimal Specimens: other (gastric antrum/body) Condition: stable Disposition: post procedure unit ([facility]) Results - Labs CBC & BMP: 11/11/16 06:19 11/11/16 06:19 Discharge Plan - Discharge Medications No Action hydrALAZINE TAB [Apresoline Tab] 50 mg PEG TID Isosorbide Dinitrate [Isordil] 20 mg PEG TID Carvedilol 25 mg PEG BID Lisinopril 20 mg PEG 0800 Esomeprazole Magnesium [Esomeprazole] 20 mg PEG 1600 Multivit &Minerals/Ferrous Fum [Multivitamin Liquid] 9 mg PO DAILY Magnesium Hydroxide Susp [Milk of Magnesia] 30 ml PO DAILY Ferrous Sulfate Liquid [Feosol Liquid] 300 mg PO TID Insulin Glargine [Lantus] 14 unit SUBCUT 1800 amLODIPine [Norvasc] 10 mg PEG 0800 Polyethylene Glycol Powder [Miralax] 17 gm PO MOWEFR - Follow Up or Referral - Forms/Instructions
[2016-11-11] MEDS: amLODIPine 10 MG TABLET PEG SCH (12:21)
[2016-11-11] MEDS: POLYETHYLENE GLYCOL POWDER 17 GM PACK PEG SCH ×2 (12:22→20:11)
[2016-11-11] MEDS: LISINOPRIL 20 MG TABLET PEG SCH (12:22)
[2016-11-11] MEDS: INSULIN GLARGINE 100 UNIT/ML SUBCUT SCH (17:29)
[2016-11-12] MEDS: INSULIN LISPRO 100 UNIT/ML SUBCUT SCH ×4 (01:14→21:42)
[2016-11-12] MEDS: PIPERACILLIN/TAZOBACTAM 3,375 MG in SODIUM CHLORIDE 0.9% 100 ML IV SCH ×3 (05:50→23:42)
[2016-11-12 06:20] LABS: Basophils % 0.5 % (0.0-0.8); Eosinophils # 0.3 10*3/uL (0.0-0.87); Hematocrit 27.1 VOL% (35.7-47.0); Hemoglobin 8.2 GM/DL (12.0-16.0); Immature Granulocytes % 0.3 %; Immature Granulocytes Absolute 0.02 #; Lymphocytes # 1.6 10*3/uL (1.4-4.0); Lymphocytes % 24.3 % (21.3-54.2); Mean Corpuscular HGB Conc 30.3 GM/DL (32-36); Mean Corpuscular Hemoglobin 30 PG (27-34); Mean Corpuscular Volume 100.4 FL (87-102); Monocytes # 0.8 10*3/uL (0.11-0.8); Monocytes % 12.2 % (1.7-12.7); Neutrophils # 3.7 10*3/uL (1.4-7.4); Neutrophils % 57.7 % (38.7-73.9); Platelet Count 165 T/CUMM (130-400); White Blood Count 6.4 T/CUMM (4-12)
[2016-11-12 06:43] LABS: Magnesium 2.3 MG/DL (1.8-2.4); Phosphorous 2.4 MG/DL (2.5-4.9)
[2016-11-12] MEDS: amLODIPine 10 MG TABLET PEG SCH (09:23)
[2016-11-12] MEDS: POLYETHYLENE GLYCOL POWDER 17 GM PACK PEG SCH ×2 (09:23→23:42)
[2016-11-12] MEDS: PANTOPRAZOLE 40 MG VIAL IV SCH ×2 (09:23→23:41)
[2016-11-12] MEDS: LISINOPRIL 20 MG TABLET PEG SCH (09:23)
[2016-11-12] MEDS: DESITIN 4OZ/NYSTATIN 15 GRAM MIXTURE PASTE TOP SCH ×2 (09:24→23:42)
--- NOTE | 2016-11-12 14:52 | Gastrointestinal Progress Note ---
Assessment and Plan (1) Coffee ground emesis Status: Acute Assessment and plan: This patient does have a fair amount of emesis noted suctioning from her PEG tube. This may be secondary to the previous nausea and vomiting with a Prema- Xiao tear, there may be peptic ulcer disease, gastritis, AVMs in the stomach, or potentially gastric cancer. Occasionally the PEG tube will actually produce a pressure necrosis ulcer on the contralateral wall as well and we will examine for this. Note that the patient's last upper endoscopy done 2012 for nausea and vomiting did not show much. I would avoid anticoagulation in this patient and I agree with the use of Protonix twice daily. We will likely proceed with upper endoscopy on 11/11/16 to find an etiology for the coffee-ground emesis and anemia. Risks and benefits were discussed with the patient's who is at the bedside and include but are not limited to: Bleeding, infection, cardiac/ pulmonary compromise, and perforation. 11/10/16-- the patient's NG tube canister only filled with 300 mL over the evening time. The patient was noted to have some hypoglycemia this morning her blood sugar down to 44. At this particular point I think it is reasonable to go ahead and restart her on a low rate of continuous tube feeds and see how she tolerates this in terms of residuals. She is somewhat dehydrated with a sodium at 157 and I'm going to start some IV fluids with half-normal saline at 125 with some potassium. My plan is to scope her tomorrow to see if we can find with his bleeding is coming from. Her hematocrit continues to drop, despite the dehydration, currently down to 34.3% down to 29.7% now. 11/11/16--the patients blood sugars are improved with tube feeds and with IV fluids. Now in the ED range. Her sodium is down to 155, hematocrit is down down to 27.5%. The upper endoscopy demonstrated a large hiatal hernia with a Prema-Xiao tear at the base. This proved to be the source of bleeding. The PEG tube site looked all right, there was minimal linear gastritis noted in remaining stomach. There was a suspicious-appearing possible mass between the valleculae and piriform sinus on the right side of patient. This may require referral to ENT for biopsy. Considering the patient's limited prognosis family may elect to have no further workup for this lesion. 11/12/16--the patient's hematocrit seems stable at this point at 27%, she is tolerating her tube feeds fairly well. Yesterday she did have a large hiatal hernia with Prema-Xiao tear thought to be the source the patient's bleeding along with mild linear gastritis. She will need to be placed on Prevacid solid tabs for the next 1 month twice daily and then once daily prior to supper. Option for this was written in left in the from workup. I'm not sure if the hospitalist feels that a workup of the lesions seen above in the hypopharynx is needing further workup. I'm not sure that would change the prognosis of the patient or whether this is a known finding. It may be a head and neck squamous cell carcinoma however. Current Visit: Yes (2) Dysphagia as late effect of cerebrovascular accident (CVA) Status: Acute Assessment and plan: This patient had a PEG tube placed probably about 5 years ago before going [facility]. This is been replaced multiple times. The current PEG tube is actually quite small. If we need to replace this we will certainly replaced with a 20 Serbian PEG tube possibly endoscopically. 11/10/16-- This patient's PEG tube may be feeding into a GI bleed picture if the balloon is produced a contralateral wall erosion. We will evaluate with endoscopy tomorrow. 11/11/16-- see above concerning the right vallecular fullness/mass. This may require further evaluation by ENT. The bleeding did not appear to be due to the PEG tube which is in place for the patient's post stroke dysphagia. Tube feedings can resume immediately. 11/12/16--this is stable and patient is able to be discharged home if no workup is required on the vallecular mass on the right. I will sign off at this time as the patient appears to be doing quite well. PEG tube residuals her only 35 mL per shift. Current Visit: Yes (3) Anemia, posthemorrhagic, acute Status: Acute Assessment and plan: Patient's hematocrit is only down to 32% she certainly does not need a transfusion this point we will continue to monitor her level as she continues rehydrating her and consider transfusion if necessary. 11/10/16--This is currently now down to 29.7% this is most certainly due associated with the coffee-ground emesis. Endoscopic evaluation tomorrow, possible discharge after this as she is stable. 11/11/16-- again the anemia appeared to be due to a Prema-Xiao tear that was visible at the apex of a large hiatal hernia, this should heal on its own provider the patient does not have further nausea and vomiting. 11/12/16-- As noted above. Current Visit: Yes (4) Chronic constipation Status: Acute Assessment and plan: The patient was thought to have a volvulus today and did go to a Hypaque barium enema in order to disprove this. The barium was not well retained however it does not appear there is any gross evidence of a sigmoid volvulus. There is simply chronic constipation and the patient will need to be able to come off of NG tube suctioning in order to undergo treatment with MiraLAX twice daily to help remedy the constipation. This may be related to the patient's prior iron intake. We will hold tube feedings for the present time while patient is on suction to her PEG tube in the short-term. She may benefit from IV Reglan if this becomes persistent. 11/10/16-- we'll start some MiraLAX today now that the PEG tube is being utilized. 11/11/16-- Continue new MiraLAX. 11/12/16-- I will write this into the prescription to continue the MiraLAX when she returns back to her home. Current Visit: Yes Gastroenterology - PN: Subj Interval history: Does not appear to be having any further nausea or vomiting, she is tolerating her tube feeds at 45 mL per hour without difficulty, residuals are 35 ml/shift. The bleeding appeared to have been from a Prema-Xiao tear on yesterday's endoscopy with a intact PEG tube without gross evidence of ulceration or erosion. She would likely benefit from pantoprazole 40 mg once daily likely prior to suppertime for best effect. Her is not in the room to interview at this time but he seems very involved with her care. Exam (Progress Note) - Constitutional Vitals: Period Temp Pulse Resp BP Sys/Altamirano Pulse Ox Last 24 Hr 96.9 F-98.7 F 47-75 14-20 115-151/41-70 94-100 General appearance: no acute distress - Head Head exam: Present: normocephalic, atraumatic - Eye Eye exam: Present: EOMI Pupils: Present: DEE - Respiratory Respiratory exam: Present: clear to auscultation bilaterally, decreased breath sounds (in the bases bilaterally), rhonchi. Absent: stridor, wheezes - Cardiovascular Cardiovascular exam: Present: regular rate and rhythm - GI/Abdominal GI/Abdominal exam: Present: normal bowel sounds, soft, other (PEG tube in the left lower quadrant, spins well, no erythema with residuals) - Psychiatric Psychiatric exam: Present: other (patient is locked in and minimally responsive she does grimace and small bowel at times but does answer simple questions/ follows simple commands) - Skin Skin exam: Present: warm Results - Labs CBC & BMP: 11/12/16 05:51 11/11/16 06:19
--- NOTE | 2016-11-12 17:44 | Hospitalist Progress Note ---
Assessment and Plan (1) Anemia, posthemorrhagic, acute Status: Acute Assessment and plan: s/p egd 11/11/16 Prema-Xiao tear and linear gastritis gastric polyps noted incidentally biopsied for Helicobacter pylori Current Visit: Yes (2) At risk for aspiration Status: Acute Assessment and plan: Copious secretions start potassium iodide Current Visit: No (3) Dementia Status: Acute Current Visit: Yes (4) Diabetes mellitus Status: Acute Assessment and plan: Controlled with current insulin regimen Current Visit: Yes (5) Dehydration Status: Acute Assessment and plan: Continue free water through PEG tube Current Visit: Yes (6) Hypernatremia Status: Acute Assessment and plan: Due to dehydration continue free water through PEG Current Visit: Yes (7) Dysphagia as late effect of cerebrovascular accident (CVA) Status: Acute Assessment and plan: Chronic aspiration risk already has PEG Current Visit: Yes Hospitalist: Subjective Interval history: Patient has proven JT champion. Hep-Lock IV fluids today. Patient had a Prema Xiao tear on EGD. Exam - Constitutional Vitals: Period Temp Pulse Resp BP Sys/Altamirano Pulse Ox Last 24 Hr 96.9 F-98.7 F 47-75 14-20 115-151/41-64 94-100 Exam: Heart Rate-[RRR] Lungs-[coarse secretions] GI-[+bs soft, NT] Ext-[1+ edema has left aka] neuro alert does not talk psych normal mood and flat affect general requiring frequent suctioning Results - Labs CBC & BMP: 11/12/16 05:51 11/11/16 06:19 Lab Results: I have reviewed the past 24 hour labs
--- NOTE | 2016-11-12 19:42 | XRay Report ---
History: Rhonchi Date: 11/12/2016 Study: Chest x-ray AP portable Comparison exam: Chest x-ray November 09, 2016 There is cardiomegaly. There is no mediastinal mass other than a large hiatal hernia. The pulmonary vasculature is upper normal. A right PICC line is well-positioned. There is some patchy and strandy parenchymal disease which has developed in either lower lung since the previous study. There is no gross pleural effusion. Skinfold overlies left hemithorax. Osseous structures are unchanged. Impression: Bibasilar airspace disease has developed in the lower lungs since the previous study. Consider pneumonia and aspiration PROCEDURE INTERPRETED AT [facility] DEPARTMENT OF RADIOLOGY Final Report Signed by: Dr. Kristin Flores
[2016-11-12] MEDS: INSULIN GLARGINE 100 UNIT/ML SUBCUT SCH (21:43)
[2016-11-12] MEDS: POTASSIUM IODIDE ORAL SOLN 1,000 MG/ML BOTTLE PO SCH (23:41)
[2016-11-13] MEDS: INSULIN LISPRO 100 UNIT/ML SUBCUT SCH ×3 (00:13→12:14)
[2016-11-13] MEDS: PIPERACILLIN/TAZOBACTAM 3,375 MG in SODIUM CHLORIDE 0.9% 100 ML IV SCH ×2 (07:44→14:37)
--- NOTE | 2016-11-13 07:56 | Discharge Summary ---
<Lori Ragland - Last Filed: 11/13/16 07:47> Hospital Course - Hospital Course Hospital Course: Ms. Braxton was admitted with projectile vomiting from the [facility] at [facility]. She had a PICC line placed while in the ED for access. KUB showed "mild to moderate distention of the transverse and sigmoid colon which may reflect ileus. Continued imaging is recommended as early sigmoid volvulus may have this appearance". Her PEG was aspirated in the ED and was bloody consistent with acute blood loss anemia. H/H stable. Dr. Lema spoke with Dr. Higgins and he suggested a hypaque barium enema to disprove volvulus. She has had a stroke about 5 years ago with dysphagia requiring a PEG tube. NG tube was placed. She did have episode of hypoglycemia with sugar down to 44. Tube feedings were started and blood glucoses improved. On 11/11, Ms. Braxton underwent an EGD with bx showing "a fairly significant Prema- Xiao tear at the EG junction which was weeping some blood at the end of the case, 7 cm hiatal hernia, PEG tube site noted to be normal. Recommendations: f/u bx results 1-2 weeks by phone, GERD precautions, restart tube feeds and see how she does. If ongoing regurgitation noted, Reglan would be next step". She was started on MiraLAX and this is to be continued. She did develop hypernatremia due to dehydration. Free water through PEG was given. She has improved and is ready for discharge back to [facility] today on appropriate medications. - Time spent with patient Time with patient DS: Greater than 30 minutes (due to plan, doc and med rec.) Diagnosis - Discharge Diagnosis (1) Anemia, posthemorrhagic, acute Status: Acute (2) Chronic constipation Status: Acute (3) Dehydration Status: Acute (4) Dementia Status: Acute (5) Diabetes mellitus Status: Acute (6) Dysphagia as late effect of cerebrovascular accident (CVA) Status: Acute (7) Hypernatremia Status: Acute (8) Hypertension Status: Chronic Discharge Plan - Discharge Data Disposition: Disch/Xfer to Snf - Discharge Medications New Acetaminophen Tab [Tylenol Tab] 325 mg PO Q4H PRN #0 tablet PRN Reason: fever, headache/body aches Polyethylene Glycol Powder [Miralax] 17 gm PEG BID powder Potassium Iodide Oral Soln [Sski] 300 mg PO QID bottle Insulin Lispro [HumaLOG] See Protocol SUBCUT Q6HR ml Lansoprazole Odt Tab [Prevacid Solutab] 30 mg PO BID #60 tablet Continue hydrALAZINE TAB [Apresoline Tab] 50 mg PEG TID Isosorbide Dinitrate [Isordil] 20 mg PEG TID Carvedilol 25 mg PEG BID Lisinopril 20 mg PEG 0800 Multivit &Minerals/Ferrous Fum [Multivitamin Liquid] 9 mg PO DAILY Magnesium Hydroxide Susp [Milk of Magnesia] 30 ml PO DAILY Insulin Glargine [Lantus] 14 unit SUBCUT 1800 amLODIPine [Norvasc] 10 mg PEG 0800 Discontinued Ferrous Sulfate Liquid [Feosol Liquid] 300 mg PO TID Polyethylene Glycol Powder [Miralax] 17 gm PO MOWEFR - Follow Up or Referral Follow Up: Genaro Ayoub DO [Physician] - 2 Weeks Jordy Higgins MD [Physician] - 1 Month - Forms/Instructions Instructions: Dehydration (DC), Acute Hemoptysis (DC) Exam - Constitutional Vitals: Period Temp Pulse Resp BP Sys/[place] Pulse Ox Last 24 Hr 97.7 F-98.7 F 55-68 17-20 141-154/53-66 97-100 Discharge Results Labs on day of discharge: Labs from last 24 hours 11/13/16 11/13/16 11/13/16 07:36 06:11 00:12 Sodium 153 H Potassium 4.2 Chloride 114 H Carbon Dioxide 32 Anion Gap 11.2 BUN 18 Creatinine 0.90 GFR Calculation 79 BUN/Creatinine Ratio 20.00 Glucose 108 H POC Glucose 107 H 118 H Calculated Osmolality 305.6 H Calcium 8.6 11/12/16 19:42 Sodium Potassium Chloride Carbon Dioxide Anion Gap BUN Creatinine GFR Calculation BUN/Creatinine Ratio Glucose POC Glucose 105 Calculated Osmolality Calcium DS: Provider Date of admission: 11/09/16 15:47 Primary care physician: . No PCP Attending physician on admission: Alma Lema MD Consults: 11/09/16 15:59 Consult to Pharmacy [CONS] Routine Reason for Pharmacy Consult: Adjust Meds Renal Funct 11/09/16 19:26 Consult to Dietitian [CONS] Routine Reason for Dietitian: Other Consult Comment: has a PEG tube 11/09/16 21:08 Consult to Anesthesiology [CONS] Routine Consulting Provider: Reason for Anesthesiology: Pre-op Clearance 11/10/16 08:48 Consult to Dietitian [CONS] Routine Reason for Dietitian: TF-Initiate/Manage Consult Comment: Tube feeding recommendations Discharging clinician: Lori Ragland NP Expected date of discharge: 11/13/16 <Lady Brenner - Last Filed: 11/13/16 12:39> Hospital Course - Hospital Course Hospital Course: Patient seen and examined. Hospital course reviewed and edited. She has hypernatremia and will need more free water through her PEG tube. See PEG tube instructions. Patient's had a bed needs to be at a 90 angle to prevent aspiration. Antibiotics were initially for aspiration on the chest x-ray but her white count remained normal and she remained afebrile. Blood sugars now controlled. Continue free water through PEG tube and recheck her sodium level in [address] 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 Not sure how aggressive I would be with the patient that is chronically ill. Diagnosis - Discharge Diagnosis (1) Anemia, posthemorrhagic, acute Status: Acute (2) At risk for aspiration Status: Acute (3) Dementia Status: Acute (4) Diabetes mellitus Status: Acute (5) Dehydration Status: Acute (6) Hypernatremia Status: Acute (7) Dysphagia as late effect of cerebrovascular accident (CVA) Status: Acute Discharge Plan - Discharge Data Condition at Discharge: Stable Discharge Diet: other (npo) Activity: wear oxygen at all times, other - Forms/Instructions Additional Discharge Instructions: Suction secretions as needed. Glucerna 1.5 50 ml/hr and free water 50 ml/hr. recheck sodium in 3 days Exam - Constitutional General appearance: normal weight, no acute distress - Respiratory Respiratory exam: Present: clear to auscultation bilaterally. Absent: rhonchi, wheezes - Cardiovascular Cardiovascular exam: Present: regular rate and rhythm. Absent: systolic murmur - GI/Abdominal GI/Abdominal exam: Present: normal bowel sounds, soft. Absent: tenderness - Extremities Exam Extremities exam: Present: normal capillary refill, edema - Neurological Exam Neurological exam: Present: alert, oriented X3
[2016-11-13] MEDS: POLYETHYLENE GLYCOL POWDER 17 GM PACK PEG SCH (08:19)
[2016-11-13 08:32] LABS: Calcium 8.6 MG/DL (8.5-10.1); Osmolality,Calculated 305.6 MOS/KG (273-304); Potassium 4.2 MMOL/L (3.5-5.1)
[2016-11-13] MEDS: PANTOPRAZOLE 40 MG VIAL IV SCH (08:42)
[2016-11-13] MEDS: amLODIPine 10 MG TABLET PEG SCH (08:42)
[2016-11-13] MEDS: LISINOPRIL 20 MG TABLET PEG SCH (08:43)
[2016-11-13] MEDS: POTASSIUM IODIDE ORAL SOLN 1,000 MG/ML BOTTLE PO SCH ×2 (08:44→14:39)
[2016-11-13] MEDS: DESITIN 4OZ/NYSTATIN 15 GRAM MIXTURE PASTE TOP SCH (08:45)
[2016-11-13] MEDS: SODIUM CHLOR 0.45% KCL 20 MEQ 20 MEQ/1,000 ML BAG IV SCH ×2 (08:58→08:59)
--- NOTE | 2016-11-13 11:42 | Pathology Report from [facility] ---
ACCESSION # : [id number] PATIENT NAME : Bailee Braxton ORDERING DR : Jordy Higgins MD CLINICAL HX: GI bleed POST-OP DX: Same SPECIMEN INFO: HELEN GROSS DESCRIPTION: Received in formalin labeled "BAILEE BRAXTON " is a 0.6 x 0.3 cm aggregate of esteves tissue submitted in one cassette. DIAGNOSIS FOR BAILEE BRAXTON: GASTRIC ANTRAL BIOPSY: Chronic superficial gastritis. No evidence of malignancy. Special stain for H. pylori-like organisms is NEGATIVE. SERVICE DATE: 11/12/2016 REPORT DATE: 11/13/2016 PATHOLOGIST: Talia Wiseman III, M.D. MTDD
[2016-11-13 12:00] VITALS: BP 168/87
--- NOTE | 2016-11-19 16:23 | Physician Query Form ---
CLICK EDIT DOCUMENT TO SELECT QUERY ANSWER --> OK --> SIGN Mirian Diggs RN Clinical [employer] W) [phone] (f) [phone] [email or web address]: Make your selection(s) from the choices in EACH section by typing an "x" and enter comments in the comment section Please use your independent medical judgment in providing your response. This request does not imply that any particular answer is desired or expected. CLINICAL INDICATORS: (Providers should not edit this section) Based on wound care nurse documentation of "stage 3 pressure ulcer to right buttock and stage 3 pressure ulcer to left buttock", please clarify if you agree with the documentation of the wound nurse. Based on the above, could you please provide further clarification regarding the ulcer/wound? LOCATION OF WOUND/ULCER: right buttock and left buttock IF A PRESSURE ULCER, PLEASE ALSO INCLUDE THE STAGE* OF THE ULCER: ( ) Stage 1 - Skin intact, non-blanchable redness ( ) Stage 2 - Partial thickness loss of dermis, includes intact or open blister (x ) Stage 3 - Full thickness tissue not including bone, tendon, or muscle ( ) Stage 4 - Full thickness tissue loss, including exposed bone, tendon, or muscle ( ) Unstageable - Full thickness tissue loss in which the base is covered by slough (yellow, esteves, moya, green or brown) and/or eschar (esteves, brown or black) in the wound bed. ( ) Suspected Deep Tissue Injury - Purple or maroon localized area of discolored intact skin or blood-filled blister due to damage of underlying soft tissue from pressure and/or shear. The area may be preceded by tissue that is painful, firm, mushy, boggy, warmer or cooler as compared to adjacent tissue. ( ) Clinically unable to determine *Source: National Pressure Ulcer Advisory Panel (NPUAP) COMMENTS: Use of terms such as suspected, likely, or probable (associated with a specific diagnosis that is being evaluated, monitored, or treated as if it exists) are acceptable and can be restated in the discharge summary if not ruled out. MTDD
== END 2016-11-13 17:05 | DRG 242 ==
LOC: EDUNIT# → N.ED 11:28 → N.EDINP 15:47 → N.5E 16:54
PROVIDERS: ADMIT Internal Medicine; ATTEND Internal Medicine

== ENCOUNTER 2018-09-11 18:24 | Inpatient (IN) ==
[2018-09-11] MEDS ORDERED: SODIUM CHLORIDE 0.9% 500 ML IV STA (18:30)
[2018-09-11 18:46] LABS: Basophils % 0.1 % (0.0-0.8); Hematocrit 38.4 VOL% (35.7-47.0); Hemoglobin 12.2 GM/DL (12.0-16.0); Immature Granulocytes % 0.5 %; Immature Granulocytes Absolute 0.07 #; Lymphocytes # 0.5 10*3/uL (1.4-4.0); Lymphocytes % 3.2 % (21.3-54.2); Mean Corpuscular HGB Conc 31.8 GM/DL (32-36); Mean Corpuscular Hemoglobin 31 PG (27-34); Mean Corpuscular Volume 96.7 FL (87-102); Mean Platelet Volume 12.9 FL (9.6-12.0); Monocytes # 0.9 10*3/uL (0.11-0.8); Monocytes % 6.6 % (1.7-12.7); Neutrophils # 12.8 10*3/uL (1.4-7.4); Neutrophils % 89.6 % (38.7-73.9); Platelet Count 154 T/CUMM (130-400); Red Blood Count 3.97 MC/CUMM (3.8-5.5); Red Cell Distribution Width 15.4 % (9.3-17.3); White Blood Count 14.2 T/CUMM (4-12)
[2018-09-11 18:58] LABS: Partial Thromboplastin Time 26.8 SECS (0-40)
[2018-09-11 19:03] LABS: Apearance,Urine CLOUDY (Clear); Bilirubin,Urine Negative (Negative); Blood, Urine Negative (Negative); Glucose,Urine (UA) Negative (Negative); Ketones,Urine Negative (Negative); Nitrite,Urine Negative (Negative); Protein,Urine >=500 MG/DL; RBC,Urine 10 /HPF (0-4); Squamous Epithelial Cell,Urine Occasional /HPF (0-10); Triple Phosphate Crystal,Urine Occasional /HPF (Few); Urine Color Yellow (Yellow); Urine Specific Gravity 1.015 (1.001-1.035); Urine Urobilinogen < 2.0 EU/DL (0.2-1.0)
[2018-09-11 19:13] LABS: Band Neutrophils 2 % (0-10); Lymphocytes 4 % (20-55); Segmented Neutrophils 89 % (50-85); Total Cells Counted 100
[2018-09-11 19:14] LABS: Hypochromasia Slight; Platelet Estimate Adequate
[2018-09-11 19:22] LABS: Albumin 3.1 G/DL (3.4-5.0); Bilirubin,Total 0.4 MG/DL (0.2-1.0); Calcium 9.4 MG/DL (8.5-10.1); Osmolality,Calculated 314.7 MOS/KG (273-304); Potassium 5.1 MMOL/L (3.5-5.1)
[2018-09-11] MEDS ORDERED: VECURONIUM 10 MG VIAL IV ONE ×2 (19:57→20:30)
[2018-09-11] MEDS ORDERED: ONDANSETRON 4 MG/2 ML VIAL IV PRN (20:08)
[2018-09-11] MEDS ORDERED: ALBUTEROL 2.5 MG/3 ML NEB RESP TX PRN (20:08)
[2018-09-11] MEDS ORDERED: ACETAMINOPHEN 325 MG TABLET PO PRN (20:08)
[2018-09-11] MEDS ORDERED: cefTRIAXone 1,000 MG in SYRINGE 1 EACH IV STA (20:14)
[2018-09-11] MEDS ORDERED: SODIUM CHLORIDE 0.9% 2,000 ML IV STA (20:17)
[2018-09-11] MEDS ORDERED: DEXTROSE 50% 25 GM/50 ML VIAL IV PRN (20:18)
[2018-09-11] MEDS ORDERED: GLUCAGON 1 MG VIAL IM PRN (20:18)
[2018-09-11] MEDS ORDERED: LACTATED RINGERS 1,000 ML IV SCH (20:30)
[2018-09-11] MEDS ORDERED: LORazepam 2 MG/1 ML VIAL IV PRN (20:45)
[2018-09-11 20:48] LABS: ABG Base Excess 4.3 MMOL/L (-2.5-2.5); ABG HCO3 28.3 MMOL/L (20-26); ABG Oxygen Saturation 99.9 % (95-100); ABG PCO2 33.2 MM HG (35-48); ABG PH 7.517 (7.35-7.45); ABG TCO2 23.6 MMOL/L (23-27); Pt O2 Delivery Device Ventilator
[2018-09-11] MEDS: FAMOTIDINE 20 MG/2 ML VIAL IV SCH (21:35)
[2018-09-11] MEDS: ENOXAPARIN 40 MG/0.4 ML SYRINGE SUBCUT SCH (21:43)
[2018-09-11] MEDS: LEVOFLOXACIN INJ 750 MG in PREMIX 1 EACH IV SCH (23:28)
[2018-09-11] MEDS: PROPOFOL 1,000 MG/100 ML BOTTLE IV SCH (23:28)
[2018-09-12] MEDS: SODIUM CHLORIDE 0.45% 1,000 ML IV SCH ×3 (00:22→18:48)
[2018-09-12 00:37] LABS: Troponin I 0.047 NG/ML (0.00-0.045)
[2018-09-12] MEDS: INSULIN LISPRO 100 UNIT/ML SUBCUT SCH ×4 (00:47→17:38)
[2018-09-12 05:03] LABS: Allen Test Positive; Pt O2 Delivery Device Ventilator
[2018-09-12 05:06] LABS: ABG Base Excess 2.1 MMOL/L (-2.5-2.5); ABG HCO3 26.3 MMOL/L (20-26); ABG Oxygen Saturation 99.1 % (95-100); ABG PCO2 37.6 MM HG (35-48); ABG PH 7.449 (7.35-7.45); ABG TCO2 23.2 MMOL/L (23-27)
[2018-09-12 05:25] LABS: Albumin 2.4 G/DL (3.4-5.0); Bilirubin,Total 0.6 MG/DL (0.2-1.0); Osmolality,Calculated 309.6 MOS/KG (273-304); Potassium 4.4 MMOL/L (3.5-5.1)
[2018-09-12 05:25] LABS: Troponin I 0.045 NG/ML (0.00-0.045)
[2018-09-12 05:50] LABS: Basophils % 0.2 % (0.0-0.8); Eosinophils % 0.2 % (0.00-10.9); Hemoglobin 13.5 GM/DL (12.0-16.0); Immature Granulocytes % 0.3 %; Immature Granulocytes Absolute 0.04 #; Lymphocytes # 0.7 10*3/uL (1.4-4.0); Lymphocytes % 5.6 % (21.3-54.2); Mean Corpuscular HGB Conc 31.4 GM/DL (32-36); Mean Corpuscular Hemoglobin 31 PG (27-34); Mean Corpuscular Volume 97.7 FL (87-102); Mean Platelet Volume 14.5 FL (9.6-12.0); Monocytes # 0.9 10*3/uL (0.11-0.8); Monocytes % 7.1 % (1.7-12.7); Neutrophils # 10.9 10*3/uL (1.4-7.4); Neutrophils % 86.6 % (38.7-73.9); Platelet Count 123 T/CUMM (130-400); Red Cell Distribution Width 15.8 % (9.3-17.3); White Blood Count 12.6 T/CUMM (4-12)
[2018-09-12] MEDS: FAMOTIDINE 20 MG/2 ML VIAL IV SCH ×2 (08:26→21:28)
[2018-09-12 10:04] LABS: Troponin I 0.044 NG/ML (0.00-0.045)
[2018-09-12] MEDS: ALBUTEROL/IPRATROPIUM 3 ML NEB RESP TX SCH ×2 (13:40→21:10)
[2018-09-12] MEDS: cefTRIAXone 1,000 MG in SYRINGE 1 EACH IV SCH (14:04)
[2018-09-12] MEDS: PROPOFOL 1,000 MG/100 ML BOTTLE IV SCH ×2 (18:49→21:27)
[2018-09-12] MEDS: ENOXAPARIN 40 MG/0.4 ML SYRINGE SUBCUT SCH (21:28)
[2018-09-12] MEDS: LEVOFLOXACIN INJ 750 MG in PREMIX 1 EACH IV SCH (21:28)
[2018-09-13] MEDS: INSULIN LISPRO 100 UNIT/ML SUBCUT SCH ×4 (00:34→17:33)
[2018-09-13] MEDS: ALBUTEROL/IPRATROPIUM 3 ML NEB RESP TX SCH ×4 (01:16→19:53)
[2018-09-13 04:58] LABS: Calcium 8.1 MG/DL (8.5-10.1); Osmolality,Calculated 298.7 MOS/KG (273-304)
[2018-09-13] MEDS: SODIUM CHLORIDE 0.45% 1,000 ML IV SCH ×3 (05:44→16:45)
[2018-09-13] MEDS: FAMOTIDINE 20 MG/2 ML VIAL IV SCH ×2 (08:14→20:23)
[2018-09-13] MEDS: PROPOFOL 1,000 MG/100 ML BOTTLE IV SCH (13:10)
[2018-09-13] MEDS: cefTRIAXone 1,000 MG in SYRINGE 1 EACH IV SCH (13:13)
[2018-09-13] MEDS: MORPHINE 4 MG/1 ML VIAL IV PRN (20:23)
[2018-09-13] MEDS: ENOXAPARIN 40 MG/0.4 ML SYRINGE SUBCUT SCH (20:24)
[2018-09-13] MEDS: LEVOFLOXACIN INJ 750 MG in PREMIX 1 EACH IV SCH (20:24)
[2018-09-14] MEDS: PROPOFOL 1,000 MG/100 ML BOTTLE IV SCH ×4 (00:27→23:21)
[2018-09-14] MEDS: INSULIN LISPRO 100 UNIT/ML SUBCUT SCH ×4 (00:35→18:18)
[2018-09-14] MEDS: ALBUTEROL/IPRATROPIUM 3 ML NEB RESP TX SCH ×4 (00:35→20:02)
[2018-09-14] MEDS: SODIUM CHLORIDE 0.45% 1,000 ML IV SCH ×3 (02:55→23:24)
[2018-09-14 03:37] LABS: Allen Test Positive; Pt O2 Delivery Device Ventilator
[2018-09-14 03:39] LABS: ABG Base Excess 1.8 MMOL/L (-2.5-2.5); ABG HCO3 27.2 MMOL/L (20-26); ABG Oxygen Saturation 80.6 % (95-100); ABG PCO2 46.1 MM HG (35-48); ABG PH 7.388 (7.35-7.45); ABG PO2 48.4 MM HG (80-95); ABG TCO2 28.6 MMOL/L (23-27)
[2018-09-14 04:47] LABS: ABG Base Excess 1.4 MMOL/L (-2.5-2.5); ABG HCO3 25.6 MMOL/L (20-26); ABG Oxygen Saturation 97.1 % (95-100); ABG PCO2 40.3 MM HG (35-48); ABG PH 7.416 (7.35-7.45); ABG TCO2 24.2 MMOL/L (23-27)
[2018-09-14] MEDS: FAMOTIDINE 20 MG/2 ML VIAL IV SCH ×2 (08:00→20:58)
[2018-09-14 09:13] LABS: Basophils % 0.1 % (0.0-0.8); Eosinophils # 0.5 10*3/uL (0.0-0.87); Eosinophils % 4.6 % (0.00-10.9); Hematocrit 26.4 VOL% (35.7-47.0); Hemoglobin 8.4 GM/DL (12.0-16.0); Immature Granulocytes % 0.8 %; Immature Granulocytes Absolute 0.09 #; Lymphocytes # 0.8 10*3/uL (1.4-4.0); Lymphocytes % 7.1 % (21.3-54.2); Mean Corpuscular HGB Conc 31.8 GM/DL (32-36); Mean Corpuscular Hemoglobin 31 PG (27-34); Mean Corpuscular Volume 97.8 FL (87-102); Mean Platelet Volume 12.7 FL (9.6-12.0); Monocytes # 0.8 10*3/uL (0.11-0.8); Monocytes % 7.3 % (1.7-12.7); Neutrophils # 9.1 10*3/uL (1.4-7.4); Neutrophils % 80.1 % (38.7-73.9); Red Cell Distribution Width 15.5 % (9.3-17.3); White Blood Count 11.3 T/CUMM (4-12)
[2018-09-14 09:16] LABS: Platelet Count 98 T/CUMM (130-400)
[2018-09-14 09:47] LABS: Calcium 7.6 MG/DL (8.5-10.1); Osmolality,Calculated 281.5 MOS/KG (273-304); Potassium 3.4 MMOL/L (3.5-5.1)
[2018-09-14 10:03] LABS: Basophils % 0.2 % (0.0-0.8); Eosinophils # 0.5 10*3/uL (0.0-0.87); Eosinophils % 4.8 % (0.00-10.9); Hematocrit 30.6 VOL% (35.7-47.0); Hemoglobin 9.4 GM/DL (12.0-16.0); Immature Granulocytes % 0.7 %; Immature Granulocytes Absolute 0.07 #; Lymphocytes # 0.8 10*3/uL (1.4-4.0); Lymphocytes % 7.2 % (21.3-54.2); Mean Corpuscular HGB Conc 30.7 GM/DL (32-36); Mean Corpuscular Hemoglobin 31 PG (27-34); Mean Corpuscular Volume 99.4 FL (87-102); Mean Platelet Volume 13.2 FL (9.6-12.0); Monocytes # 0.7 10*3/uL (0.11-0.8); Monocytes % 6.5 % (1.7-12.7); Neutrophils # 8.7 10*3/uL (1.4-7.4); Neutrophils % 80.6 % (38.7-73.9); Platelet Count 105 T/CUMM (130-400); Red Blood Count 3.08 MC/CUMM (3.8-5.5); Red Cell Distribution Width 15.8 % (9.3-17.3); White Blood Count 10.7 T/CUMM (4-12)
[2018-09-14] MEDS ORDERED: POTASSIUM CHLORIDE 20 MEQ/15 ML UDCUP PER TUBE PRN (11:22)
[2018-09-14] MEDS ORDERED: LOSARTAN 50 MG TABLET PEG ONE (12:06)
[2018-09-14] MEDS: POTASSIUM CHLORIDE 20 MEQ/15 ML UDCUP PER TUBE PRN ×3 (12:20→18:16)
[2018-09-14] MEDS: cefTRIAXone 1,000 MG in SYRINGE 1 EACH IV SCH (15:37)
[2018-09-14] MEDS: INSULIN GLARGINE 100 UNIT/ML SUBCUT SCH (18:18)
[2018-09-14] MEDS: LEVOFLOXACIN INJ 750 MG in PREMIX 1 EACH IV SCH (20:57)
[2018-09-14] MEDS: ENOXAPARIN 40 MG/0.4 ML SYRINGE SUBCUT SCH (20:57)
[2018-09-15] MEDS: INSULIN LISPRO 100 UNIT/ML SUBCUT SCH ×5 (00:54→23:45)
[2018-09-15] MEDS: ALBUTEROL/IPRATROPIUM 3 ML NEB RESP TX SCH ×4 (01:35→18:45)
[2018-09-15 01:47] LABS: Osmolality,Calculated 294.4 MOS/KG (273-304); Potassium 4.1 MMOL/L (3.5-5.1); Prealbumin 10.8 MG/DL (20-40)
[2018-09-15 05:05] LABS: ABG Base Excess 1.6 MMOL/L (-2.5-2.5); ABG HCO3 25.8 MMOL/L (20-26); ABG Oxygen Saturation 99.5 % (95-100); ABG PCO2 33.1 MM HG (35-48); ABG PH 7.482 (7.35-7.45); ABG TCO2 22.9 MMOL/L (23-27); Allen Test Positive; Pt O2 Delivery Device Ventilator
[2018-09-15] MEDS ORDERED: GENTAMICIN INJ 160 MG in SODIUM CHLORIDE 0.9% 100 ML IV SCH (07:30)
[2018-09-15] MEDS: SODIUM CHLORIDE 0.45% 1,000 ML IV SCH ×2 (07:47→18:42)
[2018-09-15] MEDS ORDERED: VECURONIUM 10 MG VIAL IV ONE (08:01)
[2018-09-15] MEDS: LOSARTAN 50 MG TABLET PEG SCH (08:47)
[2018-09-15] MEDS: FAMOTIDINE 20 MG/2 ML VIAL IV SCH ×2 (08:48→20:00)
[2018-09-15] MEDS: MULTIVITAMIN (CENTRUM) TABLET PEG SCH (08:48)
[2018-09-15] MEDS: POLYETHYLENE GLYCOL POWDER 17 GM PACK PEG SCH (08:48)
[2018-09-15] MEDS: POTASSIUM CHLORIDE 20 MEQ/15 ML UDCUP PEG SCH (08:48)
[2018-09-15] MEDS ORDERED: GENTAMICIN INJ 400 MG in SODIUM CHLORIDE 0.9% 100 ML IV ONE (09:00)
[2018-09-15] MEDS ORDERED: ATROPINE 1 MG/10 ML SYRINGE ONE (13:36)
[2018-09-15] MEDS ORDERED: MIDAZOLAM 2 MG/2 ML VIAL ONE (13:44)
[2018-09-15] MEDS ORDERED: MIDAZOLAM 10 MG/2 ML VIAL ONE (13:44)
[2018-09-15] MEDS: cefTRIAXone 1,000 MG in SYRINGE 1 EACH IV SCH (13:49)
[2018-09-15] MEDS: INSULIN GLARGINE 100 UNIT/ML SUBCUT SCH (17:43)
[2018-09-15] MEDS: ISOSORBIDE DINITRATE 20 MG TABLET PEG SCH (18:42)
[2018-09-15] MEDS: MORPHINE 4 MG/1 ML VIAL IV PRN (19:54)
[2018-09-15] MEDS: ENOXAPARIN 40 MG/0.4 ML SYRINGE SUBCUT SCH (19:59)
[2018-09-15] MEDS: LEVOFLOXACIN INJ 750 MG in PREMIX 1 EACH IV SCH (20:00)
[2018-09-15] MEDS: PROPOFOL 1,000 MG/100 ML BOTTLE IV SCH (23:22)
[2018-09-16] MEDS: ALBUTEROL/IPRATROPIUM 3 ML NEB RESP TX SCH ×4 (00:10→20:50)
[2018-09-16 04:18] LABS: ABG Base Excess 0.7 MMOL/L (-2.5-2.5); ABG HCO3 25.1 MMOL/L (20-26); ABG Oxygen Saturation 99.4 % (95-100); ABG PCO2 33.6 MM HG (35-48); ABG PH 7.464 (7.35-7.45); ABG TCO2 22.2 MMOL/L (23-27)
[2018-09-16 04:19] LABS: Allen Test Positive; Pt O2 Delivery Device Ventilator
[2018-09-16] MEDS: SODIUM CHLORIDE 0.45% 1,000 ML IV SCH (05:16)
[2018-09-16] MEDS: INSULIN LISPRO 100 UNIT/ML SUBCUT SCH ×3 (05:17→17:47)
[2018-09-16 05:26] LABS: Basophils # 0.1 10*3/uL (0.0-0.2); Basophils % 0.7 % (0.0-0.8); Eosinophils # 0.5 10*3/uL (0.0-0.87); Eosinophils % 7.1 % (0.00-10.9); Hematocrit 27.8 VOL% (35.7-47.0); Hemoglobin 8.9 GM/DL (12.0-16.0); Immature Granulocytes % 1.2 %; Immature Granulocytes Absolute 0.09 #; Lymphocytes # 1.4 10*3/uL (1.4-4.0); Lymphocytes % 17.9 % (21.3-54.2); Mean Corpuscular Hemoglobin 31 PG (27-34); Mean Corpuscular Volume 95.9 FL (87-102); Mean Platelet Volume 14.1 FL (9.6-12.0); Monocytes # 1.1 10*3/uL (0.11-0.8); Neutrophils # 4.4 10*3/uL (1.4-7.4); Neutrophils % 58.1 % (38.7-73.9); Platelet Count 106 T/CUMM (130-400); Red Cell Distribution Width 15.6 % (9.3-17.3); White Blood Count 7.6 T/CUMM (4-12)
[2018-09-16 05:45] LABS: Calcium 8.9 MG/DL (8.5-10.1); Osmolality,Calculated 281.1 MOS/KG (273-304); Potassium 3.8 MMOL/L (3.5-5.1)
[2018-09-16 05:53] LABS: Hypochromasia 1+; Ovalocytes Slight; Platelet Estimate Decreased
[2018-09-16] MEDS: MORPHINE 4 MG/1 ML VIAL IV PRN (06:04)
[2018-09-16] MEDS ORDERED: FUROSEMIDE 40 MG/4 ML VIAL IV ONE (08:02)
[2018-09-16] MEDS: FAMOTIDINE 20 MG/2 ML VIAL IV SCH ×2 (08:53→21:55)
[2018-09-16] MEDS: LOSARTAN 50 MG TABLET PEG SCH (08:54)
[2018-09-16] MEDS: POLYETHYLENE GLYCOL POWDER 17 GM PACK PEG SCH (08:54)
[2018-09-16] MEDS: POTASSIUM CHLORIDE 20 MEQ/15 ML UDCUP PEG SCH (08:54)
[2018-09-16] MEDS: MULTIVITAMIN (CENTRUM) TABLET PEG SCH (08:54)
[2018-09-16] MEDS: ISOSORBIDE DINITRATE 20 MG TABLET PEG SCH (08:54)
[2018-09-16] MEDS: GENTAMICIN INJ 400 MG in SODIUM CHLORIDE 0.9% 100 ML IV SCH (10:42)
[2018-09-16] MEDS: PROPOFOL 1,000 MG/100 ML BOTTLE IV SCH (13:15)
[2018-09-16] MEDS: cefTRIAXone 1,000 MG in SYRINGE 1 EACH IV SCH (13:45)
[2018-09-16] MEDS: INSULIN GLARGINE 100 UNIT/ML SUBCUT SCH (17:47)
[2018-09-16] MEDS: LEVOFLOXACIN INJ 750 MG in PREMIX 1 EACH IV SCH (21:56)
[2018-09-16] MEDS: ENOXAPARIN 40 MG/0.4 ML SYRINGE SUBCUT SCH (21:56)
[2018-09-17] MEDS: INSULIN LISPRO 100 UNIT/ML SUBCUT SCH ×4 (00:01→17:50)
[2018-09-17] MEDS: ALBUTEROL/IPRATROPIUM 3 ML NEB RESP TX SCH ×4 (01:25→20:28)
[2018-09-17 04:06] LABS: Allen Test Positive; Pt O2 Delivery Device Ventilator
[2018-09-17 04:13] LABS: ABG Base Excess 3.8 MMOL/L (-2.5-2.5); ABG HCO3 27.8 MMOL/L (20-26); ABG Oxygen Saturation 98.4 % (95-100); ABG PCO2 37.9 MM HG (35-48); ABG TCO2 25.2 MMOL/L (23-27)
[2018-09-17 04:37] LABS: Basophils % 0.4 % (0.0-0.8); Eosinophils # 0.5 10*3/uL (0.0-0.87); Eosinophils % 6.5 % (0.00-10.9); Hematocrit 27.9 VOL% (35.7-47.0); Immature Granulocytes Absolute 0.16 #; Lymphocytes # 1.2 10*3/uL (1.4-4.0); Lymphocytes % 15.2 % (21.3-54.2); Mean Corpuscular HGB Conc 32.3 GM/DL (32-36); Mean Corpuscular Hemoglobin 31 PG (27-34); Mean Corpuscular Volume 94.9 FL (87-102); Mean Platelet Volume 12.5 FL (9.6-12.0); Monocytes # 1.4 10*3/uL (0.11-0.8); Monocytes % 18.3 % (1.7-12.7); Neutrophils # 4.6 10*3/uL (1.4-7.4); Neutrophils % 57.6 % (38.7-73.9); Platelet Count 155 T/CUMM (130-400); Red Blood Count 2.94 MC/CUMM (3.8-5.5); Red Cell Distribution Width 15.3 % (9.3-17.3); White Blood Count 7.9 T/CUMM (4-12)
[2018-09-17 04:55] LABS: Calcium 9.2 MG/DL (8.5-10.1); Osmolality,Calculated 284.1 MOS/KG (273-304); Potassium 3.7 MMOL/L (3.5-5.1)
[2018-09-17 05:37] LABS: Eosinophils 7 % (0-10); Lymphocytes 14 % (20-55); Metamyelocytes 1 %
[2018-09-17 05:38] LABS: Anisocytosis 1+; Macrocytosis 1+; Platelet Estimate Adequate; Total Cells Counted 42
[2018-09-17] MEDS: MULTIVITAMIN (CENTRUM) TABLET PEG SCH (09:49)
[2018-09-17] MEDS: POTASSIUM CHLORIDE 20 MEQ/15 ML UDCUP PEG SCH (09:50)
[2018-09-17] MEDS: ISOSORBIDE DINITRATE 20 MG TABLET PEG SCH (09:50)
[2018-09-17] MEDS: LOSARTAN 50 MG TABLET PEG SCH (09:50)
[2018-09-17] MEDS: POLYETHYLENE GLYCOL POWDER 17 GM PACK PEG SCH (09:50)
[2018-09-17] MEDS: FAMOTIDINE 20 MG/2 ML VIAL IV SCH ×2 (09:51→22:51)
[2018-09-17] MEDS: AMPICILLIN INJ 1,000 MG in SODIUM CHLORIDE 0.9% 100 ML IV SCH ×2 (10:33→17:51)
[2018-09-17] MEDS: GENTAMICIN INJ 400 MG in SODIUM CHLORIDE 0.9% 100 ML IV SCH (12:37)
[2018-09-17] MEDS: INSULIN GLARGINE 100 UNIT/ML SUBCUT SCH (17:51)
[2018-09-17] MEDS: LEVOFLOXACIN INJ 750 MG in PREMIX 1 EACH IV SCH (22:50)
[2018-09-17] MEDS: ENOXAPARIN 40 MG/0.4 ML SYRINGE SUBCUT SCH (22:50)
[2018-09-18] MEDS: INSULIN LISPRO 100 UNIT/ML SUBCUT SCH ×4 (00:09→17:56)
[2018-09-18] MEDS: ALBUTEROL/IPRATROPIUM 3 ML NEB RESP TX SCH ×4 (01:08→19:41)
[2018-09-18] MEDS: AMPICILLIN INJ 1,000 MG in SODIUM CHLORIDE 0.9% 100 ML IV SCH ×3 (02:00→17:52)
[2018-09-18 05:23] LABS: Basophils % 0.6 % (0.0-0.8); Eosinophils # 0.5 10*3/uL (0.0-0.87); Eosinophils % 6.6 % (0.00-10.9); Immature Granulocytes % 2.8 %; Lymphocytes # 1.6 10*3/uL (1.4-4.0); Lymphocytes % 22.9 % (21.3-54.2); Mean Corpuscular Hemoglobin 30 PG (27-34); Mean Platelet Volume 12.7 FL (9.6-12.0); Monocytes # 1.3 10*3/uL (0.11-0.8); Neutrophils # 3.5 10*3/uL (1.4-7.4); Neutrophils % 49.1 % (38.7-73.9); Platelet Count 170 T/CUMM (130-400); Red Blood Count 3.02 MC/CUMM (3.8-5.5); Red Cell Distribution Width 15.5 % (9.3-17.3); White Blood Count 7.2 T/CUMM (4-12)
[2018-09-18 05:36] LABS: Calcium 8.8 MG/DL (8.5-10.1); Potassium 3.9 MMOL/L (3.5-5.1)
[2018-09-18 06:00] LABS: Band Neutrophils 3 % (0-10); Eosinophils 8 % (0-10); Hypochromasia 1+; Lymphocytes 23 % (20-55); Ovalocytes Slight; Platelet Estimate Adequate; Segmented Neutrophils 52 % (50-85); Total Cells Counted 100
[2018-09-18 06:01] LABS: Macrocytosis Slight
[2018-09-18] MEDS: POTASSIUM CHLORIDE 20 MEQ/15 ML UDCUP PEG SCH (09:37)
[2018-09-18] MEDS: POLYETHYLENE GLYCOL POWDER 17 GM PACK PEG SCH (09:38)
[2018-09-18] MEDS: LOSARTAN 50 MG TABLET PEG SCH (09:38)
[2018-09-18] MEDS: MULTIVITAMIN (CENTRUM) TABLET PEG SCH (09:38)
[2018-09-18] MEDS: ISOSORBIDE DINITRATE 20 MG TABLET PEG SCH (09:39)
[2018-09-18] MEDS: FAMOTIDINE 20 MG/2 ML VIAL IV SCH ×2 (09:51→22:41)
[2018-09-18] MEDS: INSULIN GLARGINE 100 UNIT/ML SUBCUT SCH ×2 (19:06→19:07)
[2018-09-18] MEDS: LEVOFLOXACIN INJ 750 MG in PREMIX 1 EACH IV SCH (22:40)
[2018-09-18] MEDS: ENOXAPARIN 40 MG/0.4 ML SYRINGE SUBCUT SCH (22:41)
[2018-09-19] MEDS: ALBUTEROL/IPRATROPIUM 3 ML NEB RESP TX SCH ×4 (01:21→19:29)
[2018-09-19] MEDS: AMPICILLIN INJ 1,000 MG in SODIUM CHLORIDE 0.9% 100 ML IV SCH ×3 (01:45→16:56)
[2018-09-19] MEDS: INSULIN LISPRO 100 UNIT/ML SUBCUT SCH ×4 (03:23→18:23)
[2018-09-19 03:37] LABS: ABG Base Excess 3.8 MMOL/L (-2.5-2.5); ABG HCO3 27.8 MMOL/L (20-26); ABG Oxygen Saturation 96.8 % (95-100); ABG PCO2 46.3 MM HG (35-48); ABG PH 7.406 (7.35-7.45); ABG PO2 88.6 MM HG (80-95); ABG TCO2 26.5 MMOL/L (23-27); Allen Test Positive; Pt O2 Delivery Device Venturi Mask
[2018-09-19 05:23] LABS: Basophils % 0.6 % (0.0-0.8); Eosinophils # 0.4 10*3/uL (0.0-0.87); Eosinophils % 6.6 % (0.00-10.9); Hematocrit 30.1 VOL% (35.7-47.0); Hemoglobin 9.5 GM/DL (12.0-16.0); Immature Granulocytes % 1.7 %; Immature Granulocytes Absolute 0.11 #; Lymphocytes # 1.3 10*3/uL (1.4-4.0); Lymphocytes % 19.9 % (21.3-54.2); Mean Corpuscular HGB Conc 31.6 GM/DL (32-36); Mean Corpuscular Hemoglobin 30 PG (27-34); Mean Corpuscular Volume 95.9 FL (87-102); Mean Platelet Volume 11.4 FL (9.6-12.0); Monocytes # 1.1 10*3/uL (0.11-0.8); Monocytes % 16.2 % (1.7-12.7); Neutrophils # 3.6 10*3/uL (1.4-7.4); Platelet Count 221 T/CUMM (130-400); Red Blood Count 3.14 MC/CUMM (3.8-5.5); Red Cell Distribution Width 15.6 % (9.3-17.3); White Blood Count 6.5 T/CUMM (4-12)
[2018-09-19 05:47] LABS: Calcium 8.9 MG/DL (8.5-10.1); Osmolality,Calculated 287.8 MOS/KG (273-304); Potassium 3.7 MMOL/L (3.5-5.1)
[2018-09-19 06:37] LABS: Eosinophils 5 % (0-10); Lymphocytes 21 % (20-55); Platelet Estimate Normal; Segmented Neutrophils 57 % (50-85); Total Cells Counted 100
[2018-09-19 06:39] LABS: Hypochromasia 2+
[2018-09-19] MEDS: LOSARTAN 50 MG TABLET PEG SCH (08:07)
[2018-09-19] MEDS: MULTIVITAMIN (CENTRUM) TABLET PEG SCH (08:07)
[2018-09-19] MEDS: FAMOTIDINE 20 MG/2 ML VIAL IV SCH ×2 (08:07→21:40)
[2018-09-19] MEDS: ISOSORBIDE DINITRATE 20 MG TABLET PEG SCH (08:07)
[2018-09-19] MEDS: POLYETHYLENE GLYCOL POWDER 17 GM PACK PEG SCH (08:07)
[2018-09-19] MEDS: POTASSIUM CHLORIDE 20 MEQ/15 ML UDCUP PEG SCH (08:07)
[2018-09-19] MEDS: GENTAMICIN INJ 300 MG in SODIUM CHLORIDE 0.9% 100 ML IV SCH (09:20)
[2018-09-19] MEDS: INSULIN GLARGINE 100 UNIT/ML SUBCUT SCH (18:23)
[2018-09-19] MEDS: ENOXAPARIN 40 MG/0.4 ML SYRINGE SUBCUT SCH (21:39)
[2018-09-20] MEDS: INSULIN LISPRO 100 UNIT/ML SUBCUT SCH ×4 (00:33→19:06)
[2018-09-20] MEDS: AMPICILLIN INJ 1,000 MG in SODIUM CHLORIDE 0.9% 100 ML IV SCH ×3 (01:40→18:03)
[2018-09-20] MEDS: ALBUTEROL/IPRATROPIUM 3 ML NEB RESP TX SCH ×4 (01:58→19:56)
[2018-09-20 07:11] LABS: Calcium 9.1 MG/DL (8.5-10.1); Potassium 3.9 MMOL/L (3.5-5.1)
[2018-09-20] MEDS: POLYETHYLENE GLYCOL POWDER 17 GM PACK PEG SCH (08:01)
[2018-09-20] MEDS: FAMOTIDINE 20 MG/2 ML VIAL IV SCH (08:01)
[2018-09-20] MEDS: MULTIVITAMIN (CENTRUM) TABLET PEG SCH (08:01)
[2018-09-20] MEDS: POTASSIUM CHLORIDE 20 MEQ/15 ML UDCUP PEG SCH (08:02)
[2018-09-20] MEDS: LOSARTAN 50 MG TABLET PEG SCH (09:10)
[2018-09-20] MEDS: RANITIDINE 150 MG/10 ML 30 ML BOTTLE PEG SCH ×2 (09:10→22:49)
[2018-09-20] MEDS: ISOSORBIDE DINITRATE 20 MG TABLET PEG SCH (09:10)
[2018-09-20] MEDS: ENOXAPARIN 40 MG/0.4 ML SYRINGE SUBCUT SCH (22:49)
[2018-09-20] MEDS: INSULIN GLARGINE 100 UNIT/ML SUBCUT SCH (23:18)
[2018-09-21] MEDS: ALBUTEROL/IPRATROPIUM 3 ML NEB RESP TX SCH ×4 (00:07→20:11)
[2018-09-21] MEDS: INSULIN LISPRO 100 UNIT/ML SUBCUT SCH ×4 (00:26→17:35)
[2018-09-21] MEDS: AMPICILLIN INJ 1,000 MG in SODIUM CHLORIDE 0.9% 100 ML IV SCH ×3 (01:36→16:43)
[2018-09-21 04:04] LABS: Basophils % 0.4 % (0.0-0.8); Eosinophils # 0.3 10*3/uL (0.0-0.87); Eosinophils % 3.6 % (0.00-10.9); Hematocrit 31.9 VOL% (35.7-47.0); Immature Granulocytes % 0.5 %; Immature Granulocytes Absolute 0.04 #; Lymphocytes # 1.3 10*3/uL (1.4-4.0); Lymphocytes % 17.8 % (21.3-54.2); Mean Corpuscular HGB Conc 31.3 GM/DL (32-36); Mean Corpuscular Hemoglobin 31 PG (27-34); Mean Corpuscular Volume 97.6 FL (87-102); Mean Platelet Volume 10.6 FL (9.6-12.0); Monocytes # 1.2 10*3/uL (0.11-0.8); Monocytes % 16.6 % (1.7-12.7); Neutrophils # 4.5 10*3/uL (1.4-7.4); Neutrophils % 61.1 % (38.7-73.9); Platelet Count 253 T/CUMM (130-400); Red Blood Count 3.27 MC/CUMM (3.8-5.5); Red Cell Distribution Width 15.4 % (9.3-17.3); White Blood Count 7.3 T/CUMM (4-12)
[2018-09-21 04:26] LABS: Calcium 9.3 MG/DL (8.5-10.1); Potassium 3.9 MMOL/L (3.5-5.1)
[2018-09-21 05:40] LABS: Band Neutrophils 1 % (0-10); Eosinophils 8 % (0-10); Lymphocytes 15 % (20-55); Segmented Neutrophils 69 % (50-85)
[2018-09-21 05:41] LABS: Hypochromasia 1+; Platelet Estimate Normal
[2018-09-21 05:42] LABS: Reactive Lymphocytes 1+; Total Cells Counted 100
[2018-09-21] MEDS: POLYETHYLENE GLYCOL POWDER 17 GM PACK PEG SCH (08:21)
[2018-09-21] MEDS: ISOSORBIDE DINITRATE 20 MG TABLET PEG SCH (08:22)
[2018-09-21] MEDS: POTASSIUM CHLORIDE 20 MEQ/15 ML UDCUP PEG SCH (08:22)
[2018-09-21] MEDS: MULTIVITAMIN (CENTRUM) TABLET PEG SCH (08:22)
[2018-09-21] MEDS: LOSARTAN 50 MG TABLET PEG SCH (08:22)
[2018-09-21] MEDS: RANITIDINE 150 MG/10 ML 30 ML BOTTLE PEG SCH ×2 (08:23→22:02)
[2018-09-21] MEDS: GENTAMICIN INJ 300 MG in SODIUM CHLORIDE 0.9% 100 ML IV SCH (16:42)
[2018-09-21] MEDS: INSULIN GLARGINE 100 UNIT/ML SUBCUT SCH (17:36)
[2018-09-21] MEDS: ENOXAPARIN 40 MG/0.4 ML SYRINGE SUBCUT SCH (22:01)
[2018-09-22] MEDS: ALBUTEROL/IPRATROPIUM 3 ML NEB RESP TX SCH ×4 (01:06→19:10)
[2018-09-22] MEDS: AMPICILLIN INJ 1,000 MG in SODIUM CHLORIDE 0.9% 100 ML IV SCH ×3 (04:22→17:50)
[2018-09-22] MEDS: INSULIN LISPRO 100 UNIT/ML SUBCUT SCH ×4 (07:07→18:38)
[2018-09-22] MEDS: POTASSIUM CHLORIDE 20 MEQ/15 ML UDCUP PEG SCH (10:05)
[2018-09-22] MEDS: ISOSORBIDE DINITRATE 20 MG TABLET PEG SCH (10:07)
[2018-09-22] MEDS: MULTIVITAMIN (CENTRUM) TABLET PEG SCH (10:07)
[2018-09-22] MEDS: LOSARTAN 50 MG TABLET PEG SCH (10:07)
[2018-09-22] MEDS: POLYETHYLENE GLYCOL POWDER 17 GM PACK PEG SCH (10:07)
[2018-09-22] MEDS: RANITIDINE 150 MG/10 ML 30 ML BOTTLE PEG SCH ×2 (10:08→22:10)
[2018-09-22] MEDS: INSULIN GLARGINE 100 UNIT/ML SUBCUT SCH (18:39)
[2018-09-22] MEDS: ENOXAPARIN 40 MG/0.4 ML SYRINGE SUBCUT SCH (22:10)
[2018-09-23] MEDS: ALBUTEROL/IPRATROPIUM 3 ML NEB RESP TX SCH ×4 (01:20→19:17)
[2018-09-23] MEDS: INSULIN LISPRO 100 UNIT/ML SUBCUT SCH ×4 (02:18→19:33)
[2018-09-23] MEDS: AMPICILLIN INJ 1,000 MG in SODIUM CHLORIDE 0.9% 100 ML IV SCH ×3 (02:28→17:07)
[2018-09-23] MEDS: GENTAMICIN INJ 300 MG in SODIUM CHLORIDE 0.9% 100 ML IV SCH ×2 (11:00→12:05)
[2018-09-23] MEDS: POLYETHYLENE GLYCOL POWDER 17 GM PACK PEG SCH (11:57)
[2018-09-23] MEDS: MULTIVITAMIN (CENTRUM) TABLET PEG SCH (12:01)
[2018-09-23] MEDS: LOSARTAN 50 MG TABLET PEG SCH (12:01)
[2018-09-23] MEDS: ISOSORBIDE DINITRATE 20 MG TABLET PEG SCH (12:02)
[2018-09-23] MEDS: POTASSIUM CHLORIDE 20 MEQ/15 ML UDCUP PEG SCH (12:05)
[2018-09-23] MEDS: RANITIDINE 150 MG/10 ML 30 ML BOTTLE PEG SCH ×2 (12:06→23:14)
[2018-09-23] MEDS: NYSTATIN OINT 15 GM TUBE TOP SCH ×2 (16:13→23:14)
[2018-09-23] MEDS: INSULIN GLARGINE 100 UNIT/ML SUBCUT SCH (19:33)
[2018-09-23] MEDS: ENOXAPARIN 40 MG/0.4 ML SYRINGE SUBCUT SCH (23:13)
[2018-09-24] MEDS: ALBUTEROL/IPRATROPIUM 3 ML NEB RESP TX SCH ×2 (00:20→07:47)
[2018-09-24] MEDS: INSULIN LISPRO 100 UNIT/ML SUBCUT SCH ×2 (01:25→05:39)
[2018-09-24] MEDS: AMPICILLIN INJ 1,000 MG in SODIUM CHLORIDE 0.9% 100 ML IV SCH ×2 (02:00→08:56)
[2018-09-24 07:36] VITALS: BP 151/80
[2018-09-24] MEDS: POTASSIUM CHLORIDE 20 MEQ/15 ML UDCUP PEG SCH (08:45)
[2018-09-24] MEDS: MULTIVITAMIN (CENTRUM) TABLET PEG SCH (08:46)
[2018-09-24] MEDS: ISOSORBIDE DINITRATE 20 MG TABLET PEG SCH (08:46)
[2018-09-24] MEDS: LOSARTAN 50 MG TABLET PEG SCH (08:46)
[2018-09-24] MEDS: NYSTATIN OINT 15 GM TUBE TOP SCH (08:52)
[2018-09-24] MEDS: POLYETHYLENE GLYCOL POWDER 17 GM PACK PEG SCH (08:52)
[2018-09-24] MEDS: RANITIDINE 150 MG/10 ML 30 ML BOTTLE PEG SCH (09:04)
== END 2018-09-24 11:39 | DRG 466 ==
LOC: N.ED 18:24 → N.EDINP 20:08 → SUATTDRO 20:08 → N.CC 21:15 → N.5E 09-20 17:54
PROVIDERS: ADMIT Family Medicine; ATTEND Family Medicine

== ENCOUNTER 2019-01-30 15:19 | Inpatient (IN) ==
[2019-01-30] MEDS ORDERED: ALBUTEROL NEB SOLN 5 MG/ML 20 ML/BOTTLE CONT NEB STA (15:38)
[2019-01-30] MEDS ORDERED: methylPREDNISolone SOD SUC 125 MG/2 ML VIAL IV STA (15:38)
[2019-01-30] MEDS ORDERED: ONDANSETRON 4 MG/2 ML VIAL IV STA (15:38)
[2019-01-30] MEDS ORDERED: AMPICILLIN/SULBACTAM 3,000 MG in SODIUM CHLORIDE 0.9% 100 ML IV STA (15:38)
[2019-01-30] MEDS ORDERED: SODIUM CHLORIDE 0.9% 1,000 ML IV STA (15:38)
[2019-01-30 17:59] LABS: Basophils % 0.2 % (0.0-0.8); Eosinophils # 0.1 10*3/uL (0.0-0.87); Eosinophils % 0.7 % (0.00-10.9); Hematocrit 43.6 VOL% (35.7-47.0); Hemoglobin 13.4 GM/DL (12.0-16.0); Immature Granulocytes % 0.5 %; Immature Granulocytes Absolute 0.06 #; Lymphocytes # 1.2 10*3/uL (1.4-4.0); Mean Corpuscular HGB Conc 30.7 GM/DL (32-36); Mean Corpuscular Volume 98.9 FL (87-102); Mean Platelet Volume 13.9 FL (9.6-12.0); Neutrophils % 83.6 % (38.7-73.9); Platelet Count 163 T/CUMM (130-400); Red Blood Count 4.41 MC/CUMM (3.8-5.5); Red Cell Distribution Width 15.3 % (9.3-17.3); White Blood Count 13.2 T/CUMM (4-12)
[2019-01-30 18:19] LABS: Albumin 3.6 G/DL (3.4-5.0); Bilirubin,Total 0.4 MG/DL (0.2-1.0); Calcium 10.1 MG/DL (8.5-10.1); Osmolality,Calculated 298.6 MOS/KG (273-304); Total Protein 8.5 G/DL (6.4-8.3)
[2019-01-30 18:59] LABS: Apearance,Urine Slightly Hazy (Clear); Bacteria,Urine Moderate /HPF (Few); Bilirubin,Urine Negative (Negative); Blood, Urine Negative (Negative); Glucose,Urine (UA) Negative (Negative); Ketones,Urine Negative (Negative); Nitrite,Urine Negative (Negative); Protein,Urine 30 MG/DL; RBC,Urine 1 /HPF (0-4); Squamous Epithelial Cell,Urine Occasional /HPF (0-10); Urine Color Yellow (Yellow); Urine Specific Gravity 1.017 (1.001-1.035); Urine Urobilinogen < 2.0 EU/DL (0.2-1.0); WBC,Urine 3 /HPF (0-6)
[2019-01-30] MEDS ORDERED: hydrALAZINE 20 MG/1 ML VIAL IV STA (19:13)
[2019-01-30] MEDS ORDERED: hydrALAZINE 20 MG/1 ML VIAL ONE (19:14)
[2019-01-30] MEDS ORDERED: ALBUTEROL 2.5 MG/3 ML NEB RESP TX PRN (19:49)
[2019-01-30] MEDS ORDERED: GLUCAGON 1 MG VIAL IM PRN (19:54)
[2019-01-30] MEDS ORDERED: ONDANSETRON 4 MG TABLET PEG PRN (19:54)
[2019-01-30] MEDS ORDERED: DEXTROSE 50% 25 GM/50 ML VIAL IV PRN (19:54)
[2019-01-30] MEDS ORDERED: AMINO ACIDS PEG SCH (20:00)
[2019-01-30] MEDS ORDERED: PROTEIN HYDROLYS PEG SCH (20:00)
[2019-01-30] MEDS: ONDANSETRON 4 MG/2 ML VIAL IV PRN (22:15)
[2019-01-30] MEDS: ALBUTEROL 2.5 MG/3 ML NEB RESP TX SCH (23:00)
[2019-01-30] MEDS: CLINDAMYCIN INJ 600 MG in PREMIX 1 EACH IV SCH (23:01)
[2019-01-30] MEDS: cefTRIAXone 1,000 MG in SYRINGE 1 EACH IV SCH (23:01)
[2019-01-30] MEDS: ENOXAPARIN 40 MG/0.4 ML SYRINGE SUBCUT SCH (23:13)
[2019-01-30] MEDS: CARVEDILOL 12.5 MG TABLET PEG SCH (23:13)
[2019-01-31] MEDS: INSULIN REGULAR 100 UNIT/ML SUBCUT SCH ×4 (01:05→18:10)
[2019-01-31] MEDS: ALBUTEROL 2.5 MG/3 ML NEB RESP TX SCH ×6 (03:21→22:27)
[2019-01-31] MEDS: CLINDAMYCIN INJ 600 MG in PREMIX 1 EACH IV SCH ×3 (05:39→20:46)
[2019-01-31] MEDS: ONDANSETRON 4 MG/2 ML VIAL IV PRN (05:39)
[2019-01-31 05:48] LABS: Basophils % 0.2 % (0.0-0.8); Hematocrit 41.7 VOL% (35.7-47.0); Hemoglobin 12.9 GM/DL (12.0-16.0); Immature Granulocytes % 0.7 %; Immature Granulocytes Absolute 0.11 #; Lymphocytes # 0.6 10*3/uL (1.4-4.0); Lymphocytes % 3.3 % (21.3-54.2); Mean Corpuscular HGB Conc 30.9 GM/DL (32-36); Mean Corpuscular Volume 98.1 FL (87-102); Mean Platelet Volume 13.9 FL (9.6-12.0); Monocytes % 2.9 % (1.7-12.7); Neutrophils % 92.9 % (38.7-73.9); Platelet Count 164 T/CUMM (130-400); Red Blood Count 4.25 MC/CUMM (3.8-5.5); Red Cell Distribution Width 15.4 % (9.3-17.3); White Blood Count 16.8 T/CUMM (4-12)
[2019-01-31 06:17] LABS: Band Neutrophils 4 % (0-10); Hypochromasia 1+; Lymphocytes 2 % (20-55); Platelet Estimate Adequate; Segmented Neutrophils 92 % (50-85); Total Cells Counted 100
[2019-01-31 06:32] LABS: Calcium 9.2 MG/DL (8.5-10.1); Osmolality,Calculated 308.3 MOS/KG (273-304); Risk Ratio 2.22; Thyroid Stimulating Hormone 0.504 uIU/ml (0.358-3.74); VLDL CHOLESTEROL 7.8 MG/DL
[2019-01-31] MEDS ORDERED: MULTIVITAMIN (CENTRUM) TABLET PEG SCH (09:00)
[2019-01-31] MEDS: AZITHROMYCIN INJ 500 MG in SODIUM CHLORIDE 0.9% 250 ML IV SCH (10:06)
[2019-01-31] MEDS: MULTIVITAMIN LIQUID (CENTRUM) 60 ML BOTTLE PEG SCH (11:03)
[2019-01-31] MEDS: SODIUM CHLOR 0.45% KCL 20 MEQ 20 MEQ/1,000 ML BAG IV SCH ×2 (11:03→20:40)
[2019-01-31] MEDS: LOSARTAN 50 MG TABLET PEG SCH (11:04)
[2019-01-31] MEDS: ISOSORBIDE DINITRATE 20 MG TABLET PEG SCH (11:04)
[2019-01-31] MEDS: CARVEDILOL 12.5 MG TABLET PEG SCH ×2 (11:04→20:41)
[2019-01-31] MEDS: POLYETHYLENE GLYCOL POWDER 17 GM PACK PEG SCH (11:05)
[2019-01-31] MEDS: POTASSIUM CHLORIDE 20 MEQ/15 ML UDCUP PEG SCH (11:05)
[2019-01-31] MEDS: PANTOPRAZOLE 40 MG TABLET PO SCH (11:06)
[2019-01-31] MEDS: INSULIN GLARGINE 100 UNIT/ML SUBCUT SCH (18:11)
[2019-01-31] MEDS: ENOXAPARIN 40 MG/0.4 ML SYRINGE SUBCUT SCH (20:41)
[2019-01-31] MEDS: cefTRIAXone 1,000 MG in SYRINGE 1 EACH IV SCH (20:41)
[2019-02-01] MEDS: INSULIN REGULAR 100 UNIT/ML SUBCUT SCH ×4 (01:09→19:11)
[2019-02-01] MEDS: ALBUTEROL 2.5 MG/3 ML NEB RESP TX SCH ×6 (02:18→23:33)
[2019-02-01] MEDS: CLINDAMYCIN INJ 600 MG in PREMIX 1 EACH IV SCH ×3 (04:19→22:05)
[2019-02-01 05:34] LABS: Basophils % 0.3 % (0.0-0.8); Hematocrit 37.5 VOL% (35.7-47.0); Hemoglobin 11.5 GM/DL (12.0-16.0); Immature Granulocytes % 0.7 %; Lymphocytes # 1.1 10*3/uL (1.4-4.0); Lymphocytes % 7.5 % (21.3-54.2); Mean Corpuscular HGB Conc 30.7 GM/DL (32-36); Mean Corpuscular Volume 99.5 FL (87-102); Mean Platelet Volume 13.6 FL (9.6-12.0); Monocytes % 10.8 % (1.7-12.7); Neutrophils % 80.7 % (38.7-73.9); Platelet Count 164 T/CUMM (130-400); Red Blood Count 3.77 MC/CUMM (3.8-5.5); Red Cell Distribution Width 15.8 % (9.3-17.3); White Blood Count 14.4 T/CUMM (4-12)
[2019-02-01] MEDS: SODIUM CHLOR 0.45% KCL 20 MEQ 20 MEQ/1,000 ML BAG IV SCH ×2 (08:58→20:54)
[2019-02-01] MEDS: AZITHROMYCIN INJ 500 MG in SODIUM CHLORIDE 0.9% 250 ML IV SCH (08:59)
[2019-02-01] MEDS: POLYETHYLENE GLYCOL POWDER 17 GM PACK PEG SCH (09:40)
[2019-02-01] MEDS: MULTIVITAMIN LIQUID (CENTRUM) 60 ML BOTTLE PEG SCH (09:40)
[2019-02-01] MEDS: POTASSIUM CHLORIDE 20 MEQ/15 ML UDCUP PEG SCH (09:40)
[2019-02-01] MEDS: PANTOPRAZOLE 40 MG TABLET PO SCH (09:40)
[2019-02-01] MEDS: CARVEDILOL 12.5 MG TABLET PEG SCH ×2 (09:40→22:04)
[2019-02-01] MEDS: ISOSORBIDE DINITRATE 20 MG TABLET PEG SCH (09:40)
[2019-02-01] MEDS: LOSARTAN 50 MG TABLET PEG SCH (09:40)
[2019-02-01] MEDS: INSULIN GLARGINE 100 UNIT/ML SUBCUT SCH (19:11)
[2019-02-01] MEDS: cefTRIAXone 1,000 MG in SYRINGE 1 EACH IV SCH (22:01)
[2019-02-01] MEDS: ENOXAPARIN 40 MG/0.4 ML SYRINGE SUBCUT SCH (22:03)
[2019-02-02] MEDS: INSULIN REGULAR 100 UNIT/ML SUBCUT SCH ×4 (01:42→18:39)
[2019-02-02] MEDS: ALBUTEROL 2.5 MG/3 ML NEB RESP TX SCH ×6 (03:05→23:10)
[2019-02-02] MEDS: CLINDAMYCIN INJ 600 MG in PREMIX 1 EACH IV SCH ×3 (04:30→21:39)
[2019-02-02 05:56] LABS: Calcium 8.6 MG/DL (8.5-10.1); Osmolality,Calculated 298.4 MOS/KG (273-304); Prealbumin 14.2 MG/DL (20-40)
[2019-02-02] MEDS: AZITHROMYCIN INJ 500 MG in SODIUM CHLORIDE 0.9% 250 ML IV SCH (06:30)
[2019-02-02] MEDS: SODIUM CHLOR 0.45% KCL 20 MEQ 20 MEQ/1,000 ML BAG IV SCH ×2 (09:00→21:37)
[2019-02-02] MEDS: MULTIVITAMIN LIQUID (CENTRUM) 60 ML BOTTLE PEG SCH (09:44)
[2019-02-02] MEDS: LOSARTAN 50 MG TABLET PEG SCH (09:44)
[2019-02-02] MEDS: POTASSIUM CHLORIDE 20 MEQ/15 ML UDCUP PEG SCH (09:44)
[2019-02-02] MEDS: ISOSORBIDE DINITRATE 20 MG TABLET PEG SCH (09:44)
[2019-02-02] MEDS: CARVEDILOL 12.5 MG TABLET PEG SCH ×2 (09:44→21:38)
[2019-02-02] MEDS: PANTOPRAZOLE 40 MG TABLET PO SCH (09:44)
[2019-02-02] MEDS: POLYETHYLENE GLYCOL POWDER 17 GM PACK PEG SCH (09:44)
[2019-02-02] MEDS: INSULIN GLARGINE 100 UNIT/ML SUBCUT SCH (18:39)
[2019-02-02] MEDS: ONDANSETRON 4 MG/2 ML VIAL IV PRN (21:37)
[2019-02-02] MEDS: ENOXAPARIN 40 MG/0.4 ML SYRINGE SUBCUT SCH (21:38)
[2019-02-02] MEDS: cefTRIAXone 1,000 MG in SYRINGE 1 EACH IV SCH (21:38)
[2019-02-03] MEDS: INSULIN REGULAR 100 UNIT/ML SUBCUT SCH ×4 (00:45→18:30)
[2019-02-03] MEDS: ALBUTEROL 2.5 MG/3 ML NEB RESP TX SCH ×6 (03:10→23:00)
[2019-02-03] MEDS: CLINDAMYCIN INJ 600 MG in PREMIX 1 EACH IV SCH ×3 (05:40→21:45)
[2019-02-03] MEDS: AZITHROMYCIN INJ 500 MG in SODIUM CHLORIDE 0.9% 250 ML IV SCH (06:45)
[2019-02-03 06:58] LABS: Basophils % 0.2 % (0.0-0.8); Eosinophils # 0.2 10*3/uL (0.0-0.87); Eosinophils % 2.1 % (0.00-10.9); Hematocrit 33.5 VOL% (35.7-47.0); Hemoglobin 10.3 GM/DL (12.0-16.0); Immature Granulocytes % 0.6 %; Immature Granulocytes Absolute 0.05 #; Lymphocytes # 1.8 10*3/uL (1.4-4.0); Lymphocytes % 20.5 % (21.3-54.2); Mean Corpuscular HGB Conc 30.7 GM/DL (32-36); Mean Corpuscular Volume 100.3 FL (87-102); Mean Platelet Volume 14.8 FL (9.6-12.0); Monocytes % 11.7 % (1.7-12.7); Neutrophils % 64.9 % (38.7-73.9); Platelet Count 119 T/CUMM (130-400); Red Blood Count 3.34 MC/CUMM (3.8-5.5); Red Cell Distribution Width 15.9 % (9.3-17.3); White Blood Count 8.9 T/CUMM (4-12)
[2019-02-03] MEDS: SODIUM CHLOR 0.45% KCL 20 MEQ 20 MEQ/1,000 ML BAG IV SCH ×2 (11:47→21:53)
[2019-02-03] MEDS: ISOSORBIDE DINITRATE 20 MG TABLET PEG SCH (12:24)
[2019-02-03] MEDS: MULTIVITAMIN LIQUID (CENTRUM) 60 ML BOTTLE PEG SCH (12:24)
[2019-02-03] MEDS: PANTOPRAZOLE 40 MG TABLET PO SCH (12:24)
[2019-02-03] MEDS: POTASSIUM CHLORIDE 20 MEQ/15 ML UDCUP PEG SCH (12:24)
[2019-02-03] MEDS: LOSARTAN 50 MG TABLET PEG SCH (12:24)
[2019-02-03] MEDS: POLYETHYLENE GLYCOL POWDER 17 GM PACK PEG SCH (12:25)
[2019-02-03] MEDS: CARVEDILOL 12.5 MG TABLET PEG SCH ×2 (12:25→21:43)
[2019-02-03] MEDS: INSULIN GLARGINE 100 UNIT/ML SUBCUT SCH (18:30)
[2019-02-03] MEDS: cefTRIAXone 1,000 MG in SYRINGE 1 EACH IV SCH (21:42)
[2019-02-03] MEDS: ENOXAPARIN 40 MG/0.4 ML SYRINGE SUBCUT SCH (21:43)
[2019-02-03] MEDS: ONDANSETRON 4 MG/2 ML VIAL IV PRN (21:53)
[2019-02-04] MEDS: INSULIN REGULAR 100 UNIT/ML SUBCUT SCH ×4 (01:06→17:51)
[2019-02-04] MEDS: ALBUTEROL 2.5 MG/3 ML NEB RESP TX SCH ×6 (03:10→22:48)
[2019-02-04] MEDS: CLINDAMYCIN INJ 600 MG in PREMIX 1 EACH IV SCH ×3 (05:39→21:47)
[2019-02-04] MEDS: AZITHROMYCIN INJ 500 MG in SODIUM CHLORIDE 0.9% 250 ML IV SCH (05:39)
[2019-02-04 07:31] LABS: Calcium 8.7 MG/DL (8.5-10.1); Osmolality,Calculated 288.8 MOS/KG (273-304)
[2019-02-04] MEDS: MULTIVITAMIN LIQUID (CENTRUM) 60 ML BOTTLE PEG SCH (09:09)
[2019-02-04] MEDS: ISOSORBIDE DINITRATE 20 MG TABLET PEG SCH (09:09)
[2019-02-04] MEDS: PANTOPRAZOLE 40 MG TABLET PO SCH (09:09)
[2019-02-04] MEDS: POLYETHYLENE GLYCOL POWDER 17 GM PACK PEG SCH (09:09)
[2019-02-04] MEDS: LOSARTAN 50 MG TABLET PEG SCH (09:09)
[2019-02-04] MEDS: POTASSIUM CHLORIDE 20 MEQ/15 ML UDCUP PEG SCH (09:09)
[2019-02-04] MEDS: CARVEDILOL 12.5 MG TABLET PEG SCH ×2 (09:09→21:47)
[2019-02-04] MEDS: SODIUM CHLOR 0.45% KCL 20 MEQ 20 MEQ/1,000 ML BAG IV SCH ×2 (12:08→18:15)
[2019-02-04] MEDS: INSULIN GLARGINE 100 UNIT/ML SUBCUT SCH (17:55)
[2019-02-04] MEDS: ENOXAPARIN 40 MG/0.4 ML SYRINGE SUBCUT SCH (21:48)
[2019-02-05] MEDS: ALBUTEROL 2.5 MG/3 ML NEB RESP TX SCH ×3 (02:37→10:56)
[2019-02-05] MEDS: INSULIN REGULAR 100 UNIT/ML SUBCUT SCH ×3 (04:11→14:33)
[2019-02-05] MEDS: CLINDAMYCIN INJ 600 MG in PREMIX 1 EACH IV SCH ×2 (05:20→14:34)
[2019-02-05 06:30] LABS: Calcium 8.8 MG/DL (8.5-10.1); Osmolality,Calculated 291.6 MOS/KG (273-304)
[2019-02-05] MEDS ORDERED: LANSOPRAZOLE ODT 30 MG TABLET PO SCH (09:00)
[2019-02-05] MEDS: POTASSIUM CHLORIDE 20 MEQ/15 ML UDCUP PEG SCH (09:25)
[2019-02-05] MEDS: ISOSORBIDE DINITRATE 20 MG TABLET PEG SCH (09:25)
[2019-02-05] MEDS: POLYETHYLENE GLYCOL POWDER 17 GM PACK PEG SCH (09:25)
[2019-02-05] MEDS: MULTIVITAMIN LIQUID (CENTRUM) 60 ML BOTTLE PEG SCH (09:30)
[2019-02-05] MEDS: CARVEDILOL 12.5 MG TABLET PEG SCH (09:30)
[2019-02-05] MEDS: LOSARTAN 50 MG TABLET PEG SCH (09:31)
[2019-02-05 12:47] VITALS: BP 96/54
== END 2019-02-05 15:00 | DRG 137 ==
LOC: EDBD → EDUNIT# → N.ED 15:19 → SUATTDRO 19:45 → N.EDINP 19:45 → N.5E 20:18
PROVIDERS: ADMIT Family Medicine; ATTEND Internal Medicine

== ENCOUNTER 2020-08-14 11:41 | Inpatient (IN) ==
[2020-08-14] MEDS ORDERED: FUROSEMIDE 100 MG/10 ML VIAL IV STA (11:57)
[2020-08-14] MEDS ORDERED: cefTRIAXone 1,000 MG in SODIUM CHLORIDE 0.9% 100 ML IV STA (11:57)
[2020-08-14] MEDS ORDERED: ACETAMINOPHEN 650 MG SUPP RECTAL STA (11:59)
[2020-08-14] MEDS ORDERED: MORPHINE 10 MG/1 ML VIAL IV STA (12:13)
[2020-08-14] MEDS ORDERED: MORPHINE 4 MG/1 ML VIAL IV STA (12:14)
[2020-08-14 12:20] LABS: ABG Base Excess 6.6 MMOL/L (-2.5-2.5); ABG HCO3 30.4 MMOL/L (20-26); ABG PCO2 47.4 MM HG (35-48); ABG PH 7.438 (7.35-7.45); ABG PO2 89.8 MM HG (80-95); ABG TCO2 27.1 MMOL/L (23-27)
[2020-08-14 13:07] LABS: Basophils % 0.3 % (0.0-0.8); Eosinophils % 0.2 % (0.00-10.9); Hematocrit 47.1 VOL% (35.7-47.0); Hemoglobin 15.1 GM/DL (12.0-16.0); Immature Granulocytes % 0.4 %; Immature Granulocytes Absolute 0.05 #; Lymphocytes # 0.9 10*3/uL (1.4-4.0); Lymphocytes % 7.5 % (21.3-54.2); Mean Corpuscular HGB Conc 32.1 GM/DL (32-36); Mean Corpuscular Volume 99.2 FL (87-102); Mean Platelet Volume 14.5 FL (9.6-12.0); Monocytes % 11.9 % (1.7-12.7); Neutrophils % 79.7 % (38.7-73.9); Platelet Count 115 T/CUMM (130-400); Red Blood Count 4.75 MC/CUMM (3.8-5.5); Red Cell Distribution Width 16.3 % (9.3-17.3); White Blood Count 11.8 T/CUMM (4-12)
[2020-08-14] MEDS: ALBUTEROL 2.5 MG/3 ML NEB RESP TX SCH ×3 (13:10→13:54)
[2020-08-14 13:47] LABS: Albumin 2.7 G/DL (3.4-5.0); Bilirubin,Total 0.6 MG/DL (0.2-1.0); Calcium 9.1 MG/DL (8.5-10.1); Osmolality,Calculated 324.7 MOS/KG (273-304); Potassium 4.2 MMOL/L (3.5-5.1); Total Protein 7.1 G/DL (6.4-8.3)
[2020-08-14 13:58] LABS: Bacteria,Urine Many /HPF (Few); Bilirubin,Urine Negative (Negative); Blood, Urine Negative (Negative); Glucose,Urine (UA) Negative (Negative); Ketones,Urine Negative (Negative); Mucus,Urine Occasional /LPF (Occasional); Nitrite,Urine Negative (Negative); Protein,Urine 100 MG/DL; RBC,Urine 3 /HPF (0-4); Squamous Epithelial Cell,Urine Occasional /HPF (0-10); Urine Appearance CLEAR (Clear); Urine Color Yellow (Yellow); Urine Urobilinogen < 2.0 EU/DL (0.2-1.0); WBC,Urine 8 /HPF (0-6)
[2020-08-14 14:07] LABS: Band Neutrophils 2 % (0-10); Lymphocytes 10 % (20-55); Segmented Neutrophils 75 % (50-85); Total Cells Counted 100
[2020-08-14 14:08] LABS: Anisocytosis 1+; Hypochromasia Slight; Platelet Estimate Adequate; Schistocytes Slight
[2020-08-14] MEDS ORDERED: ACETAMINOPHEN 325 MG TABLET PO PRN (16:38)
[2020-08-14] MEDS ORDERED: ALBUTEROL 2.5 MG/3 ML NEB RESP TX PRN (16:38)
[2020-08-14] MEDS ORDERED: hydrALAZINE 20 MG/1 ML VIAL IV PRN (16:38)
[2020-08-14] MEDS ORDERED: ONDANSETRON 4 MG/2 ML VIAL IV PRN (16:38)
[2020-08-14] MEDS: methylPREDNISolone SOD SUC 40 MG/1 ML VIAL IV SCH (17:48)
[2020-08-14] MEDS: PIPERACILLIN/TAZOBACTAM 3,375 MG in SODIUM CHLORIDE 0.9% 100 ML IV SCH (17:50)
[2020-08-14] MEDS: PANTOPRAZOLE 40 MG VIAL IV SCH (18:21)
[2020-08-14] MEDS ORDERED: GLUCAGON 1 MG VIAL IM PRN (19:08)
[2020-08-15] MEDS: INSULIN REGULAR 100 UNIT/ML SUBCUT SCH ×4 (01:50→17:19)
[2020-08-15 03:45] LABS: ABG Base Excess 5.4 MMOL/L (-2.5-2.5); ABG HCO3 29.3 MMOL/L (20-26); ABG Oxygen Saturation 97.3 % (95-100); ABG PCO2 52.1 MM HG (35-48); ABG PH 7.395 (7.35-7.45); ABG PO2 92.4 MM HG (80-95); ABG TCO2 27.4 MMOL/L (23-27)
[2020-08-15] MEDS: methylPREDNISolone SOD SUC 40 MG/1 ML VIAL IV SCH ×3 (03:50→17:03)
[2020-08-15] MEDS: PIPERACILLIN/TAZOBACTAM 3,375 MG in SODIUM CHLORIDE 0.9% 100 ML IV SCH (03:52)
[2020-08-15 04:30] LABS: Basophils % 0.1 % (0.0-0.8); Hemoglobin 14.3 GM/DL (12.0-16.0); Immature Granulocytes % 0.4 %; Immature Granulocytes Absolute 0.05 #; Lymphocytes # 0.6 10*3/uL (1.4-4.0); Lymphocytes % 5.3 % (21.3-54.2); Mean Corpuscular HGB Conc 31.1 GM/DL (32-36); Mean Corpuscular Volume 101.5 FL (87-102); Mean Platelet Volume 14.7 FL (9.6-12.0); Monocytes % 3.5 % (1.7-12.7); Neutrophils % 90.7 % (38.7-73.9); Platelet Count 109 T/CUMM (130-400); Red Blood Count 4.53 MC/CUMM (3.8-5.5); Red Cell Distribution Width 16.6 % (9.3-17.3); White Blood Count 11.8 T/CUMM (4-12)
[2020-08-15 04:39] LABS: Calcium 9.2 MG/DL (8.5-10.1); Osmolality,Calculated 335.4 MOS/KG (273-304); Potassium 4.3 MMOL/L (3.5-5.1)
[2020-08-15 05:17] LABS: Band Neutrophils 5 % (0-10); Hypochromasia 1+; Lymphocytes 2 % (20-55); Microcytosis 1+; Platelet Estimate Decreased; Segmented Neutrophils 91 % (50-85); Total Cells Counted 100
[2020-08-15] MEDS: ALBUTEROL/IPRATROPIUM 3 ML NEB RESP TX SCH ×4 (07:48→19:12)
[2020-08-15] MEDS: CLINDAMYCIN INJ 600 MG in PREMIX 1 EACH IV SCH ×2 (09:03→15:23)
[2020-08-15] MEDS: cefTRIAXone 1,000 MG in SYRINGE 1 EACH IV SCH (09:03)
[2020-08-15] MEDS: MENTHOL/ZINC OXIDE OINT 71 GM JAR TOP SCH ×2 (15:22→22:07)
[2020-08-15] MEDS: PANTOPRAZOLE 40 MG VIAL IV SCH (17:03)
[2020-08-16] MEDS: ALBUTEROL/IPRATROPIUM 3 ML NEB RESP TX SCH ×4 (00:59→19:39)
[2020-08-16] MEDS: CLINDAMYCIN INJ 600 MG in PREMIX 1 EACH IV SCH ×4 (01:35→23:35)
[2020-08-16] MEDS: INSULIN REGULAR 100 UNIT/ML SUBCUT SCH ×4 (01:40→17:42)
[2020-08-16] MEDS: methylPREDNISolone SOD SUC 40 MG/1 ML VIAL IV SCH ×4 (01:41→21:39)
[2020-08-16] MEDS: MENTHOL/ZINC OXIDE OINT 71 GM JAR TOP SCH ×2 (08:34→21:39)
[2020-08-16] MEDS: cefTRIAXone 1,000 MG in SYRINGE 1 EACH IV SCH (08:34)
[2020-08-16 09:24] LABS: ABG Base Excess 5.4 MMOL/L (-2.5-2.5); ABG HCO3 29.3 MMOL/L (20-26); ABG Oxygen Saturation 96.8 % (95-100); ABG PCO2 53.4 MM HG (35-48); ABG PH 7.388 (7.35-7.45); ABG PO2 89.5 MM HG (80-95); ABG TCO2 27.5 MMOL/L (23-27)
[2020-08-16] MEDS ORDERED: methylPREDNISolone SOD SUC 40 MG/1 ML VIAL IM SCH (09:30)
[2020-08-16] MEDS: INSULIN GLARGINE 100 UNIT/ML SUBCUT SCH ×2 (10:47→21:39)
[2020-08-16] MEDS: VANCOMYCIN INJ 1,250 MG in SODIUM CHLORIDE 0.9% 250 ML IV SCH (12:16)
[2020-08-16] MEDS: ACETYLCYSTEINE 20% 800 MG/4 ML VIAL RESP TX SCH (14:33)
[2020-08-16] MEDS: PANTOPRAZOLE 40 MG VIAL IV SCH (17:42)
[2020-08-17] MEDS: ALBUTEROL/IPRATROPIUM 3 ML NEB RESP TX SCH ×4 (00:36→19:09)
[2020-08-17] MEDS: ACETYLCYSTEINE 20% 800 MG/4 ML VIAL RESP TX SCH ×3 (00:36→14:20)
[2020-08-17] MEDS: INSULIN REGULAR 100 UNIT/ML SUBCUT SCH ×5 (00:45→17:41)
[2020-08-17 05:38] LABS: Basophils % 0.2 % (0.0-0.8); Hematocrit 49.8 VOL% (35.7-47.0); Hemoglobin 15.4 GM/DL (12.0-16.0); Immature Granulocytes Absolute 0.15 #; Lymphocytes # 0.3 10*3/uL (1.4-4.0); Mean Corpuscular HGB Conc 30.9 GM/DL (32-36); Mean Corpuscular Volume 101.2 FL (87-102); Mean Platelet Volume 15.2 FL (9.6-12.0); Monocytes % 7.8 % (1.7-12.7); NRBC # 0.04 10*3/uL; Platelet Count 115 T/CUMM (130-400); Red Blood Count 4.92 MC/CUMM (3.8-5.5); Red Cell Distribution Width 16.3 % (9.3-17.3); White Blood Count 15.7 T/CUMM (4-12)
[2020-08-17 05:46] LABS: Calcium 8.9 MG/DL (8.5-10.1); Osmolality,Calculated 353.7 MOS/KG (273-304); Potassium 4.3 MMOL/L (3.5-5.1)
[2020-08-17 06:08] LABS: Lymphocytes 4 % (20-55); Platelet Estimate Decreased; Segmented Neutrophils 92 % (50-85); Total Cells Counted 100
[2020-08-17 06:09] LABS: Anisocytosis 1+; Macrocytosis 1+
[2020-08-17] MEDS: INSULIN GLARGINE 100 UNIT/ML SUBCUT SCH ×2 (09:28→21:39)
[2020-08-17] MEDS: methylPREDNISolone SOD SUC 40 MG/1 ML VIAL IV SCH ×2 (09:28→21:39)
[2020-08-17] MEDS: MENTHOL/ZINC OXIDE OINT 71 GM JAR TOP SCH ×2 (09:28→21:39)
[2020-08-17] MEDS: cefTRIAXone 1,000 MG in SYRINGE 1 EACH IV SCH (09:29)
[2020-08-17] MEDS: CLINDAMYCIN INJ 600 MG in PREMIX 1 EACH IV SCH (09:30)
[2020-08-17] MEDS: AZITHROMYCIN 250 MG TABLET PO SCH (11:58)
[2020-08-17] MEDS: VANCOMYCIN INJ 1,250 MG in SODIUM CHLORIDE 0.9% 250 ML IV SCH (11:58)
[2020-08-17] MEDS: PANTOPRAZOLE 40 MG VIAL IV SCH (17:42)
[2020-08-18] MEDS: INSULIN REGULAR 100 UNIT/ML SUBCUT SCH ×4 (00:54→18:15)
[2020-08-18] MEDS: ALBUTEROL/IPRATROPIUM 3 ML NEB RESP TX SCH ×4 (01:58→19:01)
[2020-08-18] MEDS: ACETYLCYSTEINE 20% 800 MG/4 ML VIAL RESP TX SCH ×4 (01:58→19:01)
[2020-08-18 07:02] LABS: Basophils # 0.1 10*3/uL (0.0-0.2); Basophils % 0.4 % (0.0-0.8); Hematocrit 51.7 VOL% (35.7-47.0); Hemoglobin 16.1 GM/DL (12.0-16.0); Immature Granulocytes % 2.4 %; Immature Granulocytes Absolute 0.38 #; Lymphocytes # 0.8 10*3/uL (1.4-4.0); Lymphocytes % 4.8 % (21.3-54.2); Mean Corpuscular HGB Conc 31.1 GM/DL (32-36); Mean Corpuscular Volume 100.6 FL (87-102); Monocytes % 9.2 % (1.7-12.7); NRBC # 0.05 10*3/uL; Neutrophils % 83.2 % (38.7-73.9); Platelet Count 123 T/CUMM (130-400); Red Blood Count 5.14 MC/CUMM (3.8-5.5); Red Cell Distribution Width 16.8 % (9.3-17.3); White Blood Count 15.8 T/CUMM (4-12)
[2020-08-18 07:24] LABS: Calcium 8.9 MG/DL (8.5-10.1); Potassium 4.7 MMOL/L (3.5-5.1)
[2020-08-18 07:34] LABS: Band Neutrophils 1 % (0-10); Lymphocytes 4 % (20-55); Metamyelocytes 1 %; Segmented Neutrophils 88 % (50-85); Total Cells Counted 100
[2020-08-18 07:35] LABS: Hypochromasia 1+; Macrocytosis 1+; Platelet Estimate Adequate; Target Cells Few
[2020-08-18] MEDS: methylPREDNISolone SOD SUC 40 MG/1 ML VIAL IV SCH ×2 (09:23→22:35)
[2020-08-18] MEDS: MENTHOL/ZINC OXIDE OINT 71 GM JAR TOP SCH ×2 (09:25→22:00)
[2020-08-18] MEDS: cefTRIAXone 1,000 MG in SYRINGE 1 EACH IV SCH (09:25)
[2020-08-18] MEDS: INSULIN GLARGINE 100 UNIT/ML SUBCUT SCH ×2 (09:25→22:30)
[2020-08-18] MEDS: AZITHROMYCIN 250 MG TABLET PO SCH (09:29)
[2020-08-18] MEDS: DEXTROSE 5% 1,000 ML IV SCH ×2 (09:38→20:00)
[2020-08-18] MEDS: CLINDAMYCIN INJ 600 MG in PREMIX 1 EACH IV SCH ×2 (09:53→18:15)
[2020-08-18] MEDS: PANTOPRAZOLE 40 MG VIAL IV SCH (18:13)
[2020-08-19] MEDS: INSULIN REGULAR 100 UNIT/ML SUBCUT SCH ×4 (00:45→17:41)
[2020-08-19] MEDS: ALBUTEROL/IPRATROPIUM 3 ML NEB RESP TX SCH ×4 (02:29→20:32)
[2020-08-19] MEDS: CLINDAMYCIN INJ 600 MG in PREMIX 1 EACH IV SCH ×2 (02:57→11:29)
[2020-08-19 05:47] LABS: Basophils # 0.1 10*3/uL (0.0-0.2); Basophils % 0.4 % (0.0-0.8); Hematocrit 51.1 VOL% (35.7-47.0); Hemoglobin 15.8 GM/DL (12.0-16.0); Immature Granulocytes % 2.3 %; Lymphocytes # 0.6 10*3/uL (1.4-4.0); Lymphocytes % 2.7 % (21.3-54.2); Mean Corpuscular HGB Conc 30.9 GM/DL (32-36); Mean Corpuscular Volume 102.6 FL (87-102); Monocytes % 7.5 % (1.7-12.7); NRBC # 0.07 10*3/uL; Neutrophils % 87.1 % (38.7-73.9); Platelet Count 92 T/CUMM (130-400); Red Blood Count 4.98 MC/CUMM (3.8-5.5); Red Cell Distribution Width 16.8 % (9.3-17.3); White Blood Count 22.2 T/CUMM (4-12)
[2020-08-19 06:15] LABS: Calcium 8.5 MG/DL (8.5-10.1); Osmolality,Calculated 343.4 MOS/KG (273-304)
[2020-08-19 06:19] LABS: Band Neutrophils 2 % (0-10); Lymphocytes 2 % (20-55); Platelet Estimate Decreased; Segmented Neutrophils 86 % (50-85); Total Cells Counted 100
[2020-08-19 06:20] LABS: Macrocytosis Slight
[2020-08-19] MEDS: ACETYLCYSTEINE 20% 800 MG/4 ML VIAL RESP TX SCH ×2 (07:35→14:40)
[2020-08-19] MEDS: methylPREDNISolone SOD SUC 40 MG/1 ML VIAL IV SCH ×2 (10:43→22:07)
[2020-08-19] MEDS: cefTRIAXone 1,000 MG in SYRINGE 1 EACH IV SCH (10:44)
[2020-08-19] MEDS: DEXTROSE 5% 1,000 ML IV SCH ×2 (10:46→16:30)
[2020-08-19] MEDS: MENTHOL/ZINC OXIDE OINT 71 GM JAR TOP SCH ×2 (10:47→20:31)
[2020-08-19] MEDS: INSULIN GLARGINE 100 UNIT/ML SUBCUT SCH ×2 (11:29→20:32)
[2020-08-19 16:21] LABS: CKMB % 7.2 %
[2020-08-19 16:24] LABS: Troponin I 1.78 NG/ML (0.00-0.045)
[2020-08-19] MEDS: MEROPENEM 500 MG in SODIUM CHLORIDE 0.9% 100 ML IV SCH (16:41)
[2020-08-19] MEDS: HEPARIN 5,000 UNIT/1 ML VIAL SUBCUT SCH (16:41)
[2020-08-19] MEDS: PANTOPRAZOLE 40 MG VIAL IV SCH (17:41)
[2020-08-19] MEDS: ROSUVASTATIN 20 MG TABLET PO SCH (20:31)
[2020-08-19] MEDS: carvediloL 12.5 MG TABLET PEG SCH (20:31)
[2020-08-19] MEDS ORDERED: ENOXAPARIN 40 MG/0.4 ML SYRINGE SUBCUT SCH (21:00)
[2020-08-19] MEDS: AMINO ACIDS PROTEIN HYDROLYS PEG SCH (21:43)
[2020-08-20] MEDS: INSULIN REGULAR 100 UNIT/ML SUBCUT SCH ×4 (00:07→18:02)
[2020-08-20] MEDS: ACETYLCYSTEINE 20% 800 MG/4 ML VIAL RESP TX SCH ×3 (00:25→13:53)
[2020-08-20] MEDS: ALBUTEROL/IPRATROPIUM 3 ML NEB RESP TX SCH ×4 (00:25→19:32)
[2020-08-20] MEDS: MEROPENEM 500 MG in SODIUM CHLORIDE 0.9% 100 ML IV SCH ×3 (01:09→17:50)
[2020-08-20] MEDS: DEXTROSE 5% 1,000 ML IV SCH ×2 (01:10→12:15)
[2020-08-20] MEDS: HEPARIN 5,000 UNIT/1 ML VIAL SUBCUT SCH ×2 (03:40→17:50)
[2020-08-20 04:41] LABS: ABG Base Excess 4.4 MMOL/L (-2.5-2.5); ABG Oxygen Saturation 96.6 % (95-100); ABG PCO2 43.2 MM HG (35-48); ABG PH 7.445 (7.35-7.45); ABG PO2 88.5 MM HG (80-95); ABG TCO2 30.3 MMOL/L (23-27); Allen Test Positive; Pt O2 Delivery Device BIPAP
[2020-08-20 04:45] LABS: Basophils % 0.2 % (0.0-0.8); Hematocrit 45.9 VOL% (35.7-47.0); Hemoglobin 14.4 GM/DL (12.0-16.0); Immature Granulocytes % 2.8 %; Immature Granulocytes Absolute 0.53 #; Lymphocytes # 0.6 10*3/uL (1.4-4.0); Lymphocytes % 3.4 % (21.3-54.2); Mean Corpuscular HGB Conc 31.4 GM/DL (32-36); Mean Platelet Volume 14.3 FL (9.6-12.0); Monocytes % 4.9 % (1.7-12.7); NRBC # 0.08 10*3/uL; Neutrophils % 88.7 % (38.7-73.9); Platelet Count 104 T/CUMM (130-400); Red Blood Count 4.59 MC/CUMM (3.8-5.5); Red Cell Distribution Width 16.3 % (9.3-17.3); White Blood Count 19.1 T/CUMM (4-12)
[2020-08-20 05:06] LABS: Albumin 1.9 G/DL (3.4-5.0); Bilirubin,Total 0.9 MG/DL (0.2-1.0); Osmolality,Calculated 335.3 MOS/KG (273-304); Potassium 4.9 MMOL/L (3.5-5.1); Total Protein 6.4 G/DL (6.4-8.3)
[2020-08-20 05:07] LABS: CKMB % 8.6 %
[2020-08-20 05:19] LABS: Troponin I 1.5 NG/ML (0.00-0.045)
[2020-08-20 05:52] LABS: Risk Ratio 3.38; VLDL CHOLESTEROL 22.6 MG/DL
[2020-08-20 06:04] LABS: Anisocytosis Slight; Macrocytosis 1+; Platelet Estimate Adequate
[2020-08-20] MEDS ORDERED: ISOSORBIDE DINITRATE 20 MG TABLET PEG SCH (08:00)
[2020-08-20] MEDS ORDERED: LOSARTAN 50 MG TABLET PEG SCH (08:00)
[2020-08-20] MEDS: MULTIVITAMIN (CENTRUM) TABLET PEG SCH (09:11)
[2020-08-20] MEDS: INSULIN GLARGINE 100 UNIT/ML SUBCUT SCH ×2 (09:11→20:04)
[2020-08-20] MEDS: POLYETHYLENE GLYCOL POWDER 17 GM PACK PEG SCH (09:11)
[2020-08-20] MEDS: methylPREDNISolone SOD SUC 40 MG/1 ML VIAL IV SCH ×2 (09:11→22:08)
[2020-08-20] MEDS: ASPIRIN CHEW 81 MG TABLET PO SCH (09:12)
[2020-08-20] MEDS: MENTHOL/ZINC OXIDE OINT 71 GM JAR TOP SCH ×2 (09:12→20:04)
[2020-08-20] MEDS: carvediloL 12.5 MG TABLET PEG SCH (09:12)
[2020-08-20] MEDS ORDERED: SODIUM CHLORIDE 0.9% 250 ML IV ONE (13:15)
[2020-08-20 15:08] LABS: Hepatitis B Surface Ag Quant < 0.10 Index; Hepatitis B Surface Ag Result Negative (Negative); Hepatitis C Virus Ab Quant < 0.02 Index; Hepatitis C Virus Ab Result Negative (Negative)
[2020-08-20] MEDS: PANTOPRAZOLE 40 MG VIAL IV SCH (17:51)
[2020-08-20] MEDS: ROSUVASTATIN 20 MG TABLET PO SCH (20:04)
[2020-08-20] MEDS: AMINO ACIDS PROTEIN HYDROLYS PEG SCH (20:04)
[2020-08-21] MEDS: INSULIN REGULAR 100 UNIT/ML SUBCUT SCH ×4 (00:16→17:35)
[2020-08-21] MEDS: ALBUTEROL/IPRATROPIUM 3 ML NEB RESP TX SCH ×4 (00:22→19:42)
[2020-08-21] MEDS: ACETYLCYSTEINE 20% 800 MG/4 ML VIAL RESP TX SCH ×3 (00:22→13:19)
[2020-08-21] MEDS: MEROPENEM 500 MG in SODIUM CHLORIDE 0.9% 100 ML IV SCH ×4 (00:25→21:55)
[2020-08-21 03:00] LABS: Basophils % 0.3 % (0.0-0.8); Hematocrit 43.9 VOL% (35.7-47.0); Hemoglobin 14.1 GM/DL (12.0-16.0); Immature Granulocytes % 2.5 %; Immature Granulocytes Absolute 0.39 #; Lymphocytes # 0.6 10*3/uL (1.4-4.0); Lymphocytes % 3.7 % (21.3-54.2); Mean Corpuscular HGB Conc 32.1 GM/DL (32-36); Mean Corpuscular Volume 99.5 FL (87-102); Mean Platelet Volume 14.2 FL (9.6-12.0); Monocytes % 3.8 % (1.7-12.7); NRBC # 0.05 10*3/uL; Neutrophils % 89.7 % (38.7-73.9); Platelet Count 98 T/CUMM (130-400); Red Blood Count 4.41 MC/CUMM (3.8-5.5); Red Cell Distribution Width 15.8 % (9.3-17.3); White Blood Count 15.6 T/CUMM (4-12)
[2020-08-21 03:27] LABS: Calcium 7.8 MG/DL (8.5-10.1); Osmolality,Calculated 330.4 MOS/KG (273-304); Potassium 4.8 MMOL/L (3.5-5.1)
[2020-08-21] MEDS: HEPARIN 5,000 UNIT/1 ML VIAL SUBCUT SCH ×2 (03:27→16:32)
[2020-08-21 03:28] LABS: Albumin 1.7 G/DL (3.4-5.0); Bilirubin,Total 0.4 MG/DL (0.2-1.0); Calcium 7.7 MG/DL (8.5-10.1); Osmolality,Calculated 330.4 MOS/KG (273-304); Potassium 4.8 MMOL/L (3.5-5.1); Total Protein 5.9 G/DL (6.4-8.3)
[2020-08-21 04:17] LABS: Lymphocytes 4 % (20-55); Platelet Estimate Decreased; Segmented Neutrophils 96 % (50-85); Total Cells Counted 100
[2020-08-21 04:18] LABS: Macrocytosis 1+
[2020-08-21 04:19] LABS: Anisocytosis Slight; Polychromasia Slight; Target Cells Few
[2020-08-21] MEDS: POLYETHYLENE GLYCOL POWDER 17 GM PACK PEG SCH (09:22)
[2020-08-21] MEDS: methylPREDNISolone SOD SUC 40 MG/1 ML VIAL IV SCH ×2 (09:22→21:55)
[2020-08-21] MEDS: INSULIN GLARGINE 100 UNIT/ML SUBCUT SCH ×2 (09:22→21:55)
[2020-08-21] MEDS: DEXTROSE 5% 1,000 ML IV SCH (09:23)
[2020-08-21] MEDS: MENTHOL/ZINC OXIDE OINT 71 GM JAR TOP SCH ×2 (09:23→22:13)
[2020-08-21] MEDS: ASPIRIN CHEW 81 MG TABLET PO SCH (09:23)
[2020-08-21] MEDS: MULTIVITAMIN (CENTRUM) TABLET PEG SCH (09:23)
[2020-08-21] MEDS: PANTOPRAZOLE 40 MG VIAL IV SCH (17:35)
[2020-08-21] MEDS: ROSUVASTATIN 20 MG TABLET PO SCH (21:54)
[2020-08-21] MEDS: AMINO ACIDS PROTEIN HYDROLYS PEG SCH (22:13)
[2020-08-22] MEDS: ACETYLCYSTEINE 20% 800 MG/4 ML VIAL RESP TX SCH ×3 (00:06→16:42)
[2020-08-22] MEDS: ALBUTEROL/IPRATROPIUM 3 ML NEB RESP TX SCH ×4 (00:06→19:30)
[2020-08-22] MEDS: INSULIN REGULAR 100 UNIT/ML SUBCUT SCH ×4 (02:09→17:02)
[2020-08-22] MEDS: MEROPENEM 500 MG in SODIUM CHLORIDE 0.9% 100 ML IV SCH ×4 (04:50→21:11)
[2020-08-22] MEDS: HEPARIN 5,000 UNIT/1 ML VIAL SUBCUT SCH ×2 (04:50→16:00)
[2020-08-22] MEDS: DEXTROSE 5% 1,000 ML IV SCH (05:51)
[2020-08-22 06:05] LABS: Basophils % 0.1 % (0.0-0.8); Hematocrit 44.7 VOL% (35.7-47.0); Hemoglobin 14.6 GM/DL (12.0-16.0); Immature Granulocytes % 2.2 %; Immature Granulocytes Absolute 0.35 #; Lymphocytes # 0.5 10*3/uL (1.4-4.0); Lymphocytes % 3.3 % (21.3-54.2); Mean Corpuscular HGB Conc 32.7 GM/DL (32-36); Mean Corpuscular Volume 96.8 FL (87-102); Mean Platelet Volume 14.3 FL (9.6-12.0); Monocytes % 3.2 % (1.7-12.7); NRBC # 0.04 10*3/uL; Neutrophils % 91.2 % (38.7-73.9); Red Blood Count 4.62 MC/CUMM (3.8-5.5); Red Cell Distribution Width 15.7 % (9.3-17.3); White Blood Count 16.2 T/CUMM (4-12)
[2020-08-22 06:07] LABS: Platelet Count 117 T/CUMM (130-400)
[2020-08-22 06:27] LABS: Albumin 1.7 G/DL (3.4-5.0); Bilirubin,Total 0.7 MG/DL (0.2-1.0); Calcium 7.9 MG/DL (8.5-10.1); Osmolality,Calculated 319.3 MOS/KG (273-304); Potassium 5.4 MMOL/L (3.5-5.1); Total Protein 5.9 G/DL (6.4-8.3)
[2020-08-22 06:33] LABS: Band Neutrophils 11 % (0-10); Lymphocytes 6 % (20-55); Myelocytes 1 %; Platelet Estimate Adequate; Segmented Neutrophils 79 % (50-85); Total Cells Counted 100
[2020-08-22 06:34] LABS: Anisocytosis 1+; Macrocytosis 1+; Target Cells Few
[2020-08-22] MEDS: POLYETHYLENE GLYCOL POWDER 17 GM PACK PEG SCH (08:10)
[2020-08-22] MEDS: ASPIRIN CHEW 81 MG TABLET PO SCH (08:11)
[2020-08-22] MEDS: MENTHOL/ZINC OXIDE OINT 71 GM JAR TOP SCH ×2 (08:11→21:12)
[2020-08-22] MEDS: MULTIVITAMIN (CENTRUM) TABLET PEG SCH (08:11)
[2020-08-22] MEDS: INSULIN GLARGINE 100 UNIT/ML SUBCUT SCH ×2 (09:10→21:12)
[2020-08-22] MEDS: methylPREDNISolone SOD SUC 40 MG/1 ML VIAL IV SCH ×2 (09:11→21:13)
[2020-08-22] MEDS ORDERED: SODIUM POLYSTYRENE SULFATE 15 GM/60 ML BOTTLE PO STA (14:50)
[2020-08-22] MEDS: PANTOPRAZOLE 40 MG VIAL IV SCH (17:02)
[2020-08-22] MEDS: ROSUVASTATIN 20 MG TABLET PO SCH (21:12)
[2020-08-22] MEDS: AMINO ACIDS PROTEIN HYDROLYS PEG SCH (21:12)
[2020-08-23] MEDS: ALBUTEROL/IPRATROPIUM 3 ML NEB RESP TX SCH ×4 (00:47→18:30)
[2020-08-23] MEDS: ACETYLCYSTEINE 20% 800 MG/4 ML VIAL RESP TX SCH ×3 (00:47→14:07)
[2020-08-23] MEDS: INSULIN REGULAR 100 UNIT/ML SUBCUT SCH ×4 (02:25→17:37)
[2020-08-23] MEDS: MEROPENEM 500 MG in SODIUM CHLORIDE 0.9% 100 ML IV SCH ×4 (03:42→21:55)
[2020-08-23] MEDS: HEPARIN 5,000 UNIT/1 ML VIAL SUBCUT SCH ×2 (03:42→17:36)
[2020-08-23] MEDS: MULTIVITAMIN (CENTRUM) TABLET PEG SCH (10:20)
[2020-08-23] MEDS: MENTHOL/ZINC OXIDE OINT 71 GM JAR TOP SCH ×2 (10:20→21:48)
[2020-08-23] MEDS: POLYETHYLENE GLYCOL POWDER 17 GM PACK PEG SCH (10:20)
[2020-08-23] MEDS: METOPROLOL TARTRATE 25 MG TABLET PO SCH ×2 (10:20→21:47)
[2020-08-23] MEDS: ASPIRIN CHEW 81 MG TABLET PO SCH (10:20)
[2020-08-23] MEDS: INSULIN GLARGINE 100 UNIT/ML SUBCUT SCH ×2 (10:26→21:54)
[2020-08-23] MEDS: methylPREDNISolone SOD SUC 40 MG/1 ML VIAL IV SCH ×2 (10:26→21:46)
[2020-08-23 12:20] LABS: Albumin 1.9 G/DL (3.4-5.0); Bilirubin,Total 0.4 MG/DL (0.2-1.0); Calcium 8.2 MG/DL (8.5-10.1); Osmolality,Calculated 306.5 MOS/KG (273-304); Potassium 5.4 MMOL/L (3.5-5.1); Total Protein 5.7 G/DL (6.4-8.3)
[2020-08-23] MEDS ORDERED: SODIUM POLYSTYRENE SULFATE 15 GM/60 ML BOTTLE PO STA (14:15)
[2020-08-23] MEDS: PANTOPRAZOLE 40 MG VIAL IV SCH (19:15)
[2020-08-24] MEDS: INSULIN REGULAR 100 UNIT/ML SUBCUT SCH ×4 (01:27→17:06)
[2020-08-24] MEDS: AMINO ACIDS PROTEIN HYDROLYS PEG SCH ×2 (01:34→21:21)
[2020-08-24] MEDS: ACETYLCYSTEINE 20% 800 MG/4 ML VIAL RESP TX SCH ×3 (01:45→15:35)
[2020-08-24] MEDS: ALBUTEROL/IPRATROPIUM 3 ML NEB RESP TX SCH ×4 (01:45→19:15)
[2020-08-24] MEDS: MEROPENEM 500 MG in SODIUM CHLORIDE 0.9% 100 ML IV SCH ×2 (03:48→09:38)
[2020-08-24] MEDS: HEPARIN 5,000 UNIT/1 ML VIAL SUBCUT SCH ×2 (03:48→17:06)
[2020-08-24 06:03] LABS: PT Patient Result 10.8 SECS (9.8-11.9); Partial Thromboplastin Time 29.6 SECS (23.9-33.8)
[2020-08-24 06:06] LABS: Basophils # 0.1 10*3/uL (0.0-0.2); Basophils % 0.3 % (0.0-0.8); Hematocrit 43.8 VOL% (35.7-47.0); Hemoglobin 14.6 GM/DL (12.0-16.0); Immature Granulocytes % 2.2 %; Lymphocytes # 0.6 10*3/uL (1.4-4.0); Mean Corpuscular HGB Conc 33.3 GM/DL (32-36); Mean Corpuscular Volume 95.6 FL (87-102); Monocytes % 3.2 % (1.7-12.7); Neutrophils % 91.3 % (38.7-73.9); Platelet Count 128 T/CUMM (130-400); Red Blood Count 4.58 MC/CUMM (3.8-5.5); Red Cell Distribution Width 15.3 % (9.3-17.3); White Blood Count 18.2 T/CUMM (4-12)
[2020-08-24 06:20] LABS: Albumin 1.8 G/DL (3.4-5.0); Bilirubin,Total 0.7 MG/DL (0.2-1.0); Calcium 8.3 MG/DL (8.5-10.1); Osmolality,Calculated 317.3 MOS/KG (273-304); Potassium 5.7 MMOL/L (3.5-5.1); Total Protein 5.6 G/DL (6.4-8.3)
[2020-08-24 07:01] LABS: Anisocytosis 1+; Band Neutrophils 1 % (0-10); Hypochromasia 2+; Lymphocytes 2 % (20-55); Macrocytosis 1+; Platelet Estimate Decreased; Segmented Neutrophils 95 % (50-85); Target Cells 1+; Total Cells Counted 100
[2020-08-24] MEDS: MENTHOL/ZINC OXIDE OINT 71 GM JAR TOP SCH ×2 (09:36→21:21)
[2020-08-24] MEDS: ASPIRIN CHEW 81 MG TABLET PO SCH (09:36)
[2020-08-24] MEDS: methylPREDNISolone SOD SUC 40 MG/1 ML VIAL IV SCH (09:36)
[2020-08-24] MEDS: MULTIVITAMIN (CENTRUM) TABLET PEG SCH (09:36)
[2020-08-24] MEDS: POLYETHYLENE GLYCOL POWDER 17 GM PACK PEG SCH (09:36)
[2020-08-24] MEDS: METOPROLOL TARTRATE 25 MG TABLET PO SCH ×2 (09:36→21:21)
[2020-08-24] MEDS: INSULIN GLARGINE 100 UNIT/ML SUBCUT SCH ×2 (09:36→21:20)
[2020-08-24] MEDS ORDERED: SODIUM POLYSTYRENE SULFATE 15 GM/60 ML BOTTLE PO ONE (11:10)
[2020-08-24 16:08] LABS: Calcium 8.2 MG/DL (8.5-10.1); Osmolality,Calculated 311.4 MOS/KG (273-304); Potassium 5.6 MMOL/L (3.5-5.1)
[2020-08-24] MEDS: AMPICILLIN/SULBACTAM 1,500 MG in SODIUM CHLORIDE 0.9% 100 ML IV SCH ×2 (17:04→21:20)
[2020-08-24] MEDS: PANTOPRAZOLE 40 MG VIAL IV SCH (19:14)
[2020-08-25] MEDS: INSULIN REGULAR 100 UNIT/ML SUBCUT SCH ×5 (00:35→19:17)
[2020-08-25] MEDS: ALBUTEROL/IPRATROPIUM 3 ML NEB RESP TX SCH ×4 (00:50→20:06)
[2020-08-25] MEDS: ACETYLCYSTEINE 20% 800 MG/4 ML VIAL RESP TX SCH ×3 (00:50→13:36)
[2020-08-25 05:55] LABS: Basophils # 0.1 10*3/uL (0.0-0.2); Basophils % 0.3 % (0.0-0.8); Eosinophils % 0.1 % (0.00-10.9); Hematocrit 41.9 VOL% (35.7-47.0); Hemoglobin 13.6 GM/DL (12.0-16.0); Immature Granulocytes % 2.5 %; Immature Granulocytes Absolute 0.52 #; Lymphocytes # 1.5 10*3/uL (1.4-4.0); Lymphocytes % 6.9 % (21.3-54.2); Mean Corpuscular HGB Conc 32.5 GM/DL (32-36); Mean Platelet Volume 13.8 FL (9.6-12.0); NRBC # 0.04 10*3/uL; Neutrophils % 82.2 % (38.7-73.9); Platelet Count 121 T/CUMM (130-400); Red Blood Count 4.32 MC/CUMM (3.8-5.5); Red Cell Distribution Width 15.4 % (9.3-17.3); White Blood Count 20.9 T/CUMM (4-12)
[2020-08-25] MEDS: HEPARIN 5,000 UNIT/1 ML VIAL SUBCUT SCH ×2 (07:06→16:16)
[2020-08-25] MEDS: AMPICILLIN/SULBACTAM 1,500 MG in SODIUM CHLORIDE 0.9% 100 ML IV SCH ×4 (07:06→21:07)
[2020-08-25 07:27] LABS: Albumin 1.9 G/DL (3.4-5.0); Alkaline Phosphatase 219 U/L (45-117); Aspartate Amino Transferase 176 U/L (0-37); Bilirubin,Total < 0.39 MG/DL (0.2-1.0); Blood Urea Nitrogen 87 MG/DL (7-18); Calcium 8.2 MG/DL (8.5-10.1); Carbon Dioxide 30 MMOL/L (21-32); Estimated Glom Filtration Rate 84 ML/MIN; Glucose 102 MG/DL (74-106); Osmolality,Calculated 305.4 MOS/KG (273-304); Potassium 4.9 MMOL/L (3.5-5.1); Sodium 140 MMOL/L (136-145); Total Protein 5.6 G/DL (6.4-8.3)
[2020-08-25 08:02] LABS: Anisocytosis 1+; Band Neutrophils 7 % (0-10); Lymphocytes 10 % (20-55); Metamyelocytes 2 %; Myelocytes 1 %; Platelet Estimate Adequate; Segmented Neutrophils 73 % (50-85); Total Cells Counted 100
[2020-08-25 08:03] LABS: Macrocytosis 1+
[2020-08-25 08:45] LABS: Alanine Aminotransferase 245 U/L (13-56)
[2020-08-25] MEDS: POLYETHYLENE GLYCOL POWDER 17 GM PACK PEG SCH (09:39)
[2020-08-25] MEDS: ASPIRIN CHEW 81 MG TABLET PO SCH (09:39)
[2020-08-25] MEDS: MULTIVITAMIN (CENTRUM) TABLET PEG SCH (09:39)
[2020-08-25] MEDS: predniSONE 20 MG TABLET PO SCH (09:39)
[2020-08-25] MEDS: MENTHOL/ZINC OXIDE OINT 71 GM JAR TOP SCH ×2 (09:40→21:05)
[2020-08-25] MEDS: METOPROLOL TARTRATE 25 MG TABLET PO SCH ×2 (09:40→21:06)
[2020-08-25] MEDS: INSULIN GLARGINE 100 UNIT/ML SUBCUT SCH ×2 (09:40→21:06)
[2020-08-25] MEDS: PANTOPRAZOLE 40 MG VIAL IV SCH (18:40)
[2020-08-25] MEDS: AMINO ACIDS PROTEIN HYDROLYS PEG SCH (21:07)
[2020-08-26] MEDS: ACETYLCYSTEINE 20% 800 MG/4 ML VIAL RESP TX SCH ×4 (01:20→14:00)
[2020-08-26] MEDS: ALBUTEROL/IPRATROPIUM 3 ML NEB RESP TX SCH ×4 (01:20→19:34)
[2020-08-26] MEDS: INSULIN REGULAR 100 UNIT/ML SUBCUT SCH ×4 (01:27→17:46)
[2020-08-26] MEDS: HEPARIN 5,000 UNIT/1 ML VIAL SUBCUT SCH ×2 (05:27→17:14)
[2020-08-26] MEDS: AMPICILLIN/SULBACTAM 1,500 MG in SODIUM CHLORIDE 0.9% 100 ML IV SCH ×4 (05:27→23:57)
[2020-08-26] MEDS: INSULIN GLARGINE 100 UNIT/ML SUBCUT SCH (09:38)
[2020-08-26] MEDS: predniSONE 20 MG TABLET PO SCH (09:38)
[2020-08-26] MEDS: ASPIRIN CHEW 81 MG TABLET PO SCH (09:38)
[2020-08-26] MEDS: POLYETHYLENE GLYCOL POWDER 17 GM PACK PEG SCH (09:38)
[2020-08-26] MEDS: MENTHOL/ZINC OXIDE OINT 71 GM JAR TOP SCH ×2 (09:38→22:01)
[2020-08-26] MEDS: METOPROLOL TARTRATE 25 MG TABLET PO SCH ×2 (09:38→21:30)
[2020-08-26] MEDS: MULTIVITAMIN (CENTRUM) TABLET PEG SCH (09:38)
[2020-08-26] MEDS: DEXTROSE 50% 25 GM/50 ML VIAL IV PRN (10:51)
[2020-08-26] MEDS ORDERED: LACTULOSE 20 GM/30 ML UDCUP PO PRN (10:57)
[2020-08-26] MEDS: DOCUSATE SODIUM 100 MG CAPSULE PO SCH ×2 (14:17→21:30)
[2020-08-26] MEDS: PANTOPRAZOLE 40 MG VIAL IV SCH (17:13)
[2020-08-26] MEDS: AMINO ACIDS PROTEIN HYDROLYS PEG SCH (22:02)
[2020-08-27] MEDS: ACETYLCYSTEINE 20% 800 MG/4 ML VIAL RESP TX SCH ×4 (00:02→23:56)
[2020-08-27] MEDS: ALBUTEROL/IPRATROPIUM 3 ML NEB RESP TX SCH ×5 (00:02→23:56)
[2020-08-27] MEDS: INSULIN REGULAR 100 UNIT/ML SUBCUT SCH ×4 (01:01→17:10)
[2020-08-27] MEDS: INSULIN GLARGINE 100 UNIT/ML SUBCUT SCH ×2 (01:02→09:35)
[2020-08-27] MEDS: HEPARIN 5,000 UNIT/1 ML VIAL SUBCUT SCH ×2 (04:45→17:10)
[2020-08-27] MEDS: AMPICILLIN/SULBACTAM 1,500 MG in SODIUM CHLORIDE 0.9% 100 ML IV SCH ×4 (04:45→17:10)
[2020-08-27] MEDS: DOCUSATE SODIUM 100 MG CAPSULE PO SCH ×2 (09:35→21:45)
[2020-08-27] MEDS: POLYETHYLENE GLYCOL POWDER 17 GM PACK PEG SCH (09:35)
[2020-08-27] MEDS: predniSONE 20 MG TABLET PO SCH (09:35)
[2020-08-27] MEDS: MULTIVITAMIN (CENTRUM) TABLET PEG SCH (09:35)
[2020-08-27] MEDS: ASPIRIN CHEW 81 MG TABLET PO SCH (09:35)
[2020-08-27] MEDS: METOPROLOL TARTRATE 25 MG TABLET PO SCH ×2 (09:35→21:45)
[2020-08-27] MEDS: MENTHOL/ZINC OXIDE OINT 71 GM JAR TOP SCH ×2 (09:35→21:45)
[2020-08-27] MEDS: PANTOPRAZOLE 40 MG VIAL IV SCH (17:05)
[2020-08-27] MEDS: DEXTROSE 50% 25 GM/50 ML VIAL IV PRN (17:07)
[2020-08-27] MEDS: AMPICILLIN/SULBACTAM 1,500 MG VIAL IM SCH (23:45)
[2020-08-27] MEDS: AMINO ACIDS PROTEIN HYDROLYS PEG SCH (23:54)
[2020-08-28] MEDS: INSULIN REGULAR 100 UNIT/ML SUBCUT SCH ×4 (01:06→17:51)
[2020-08-28] MEDS ORDERED: cloNIDine 0.1 MG TABLET PEG ONE (01:42)
[2020-08-28] MEDS: HEPARIN 5,000 UNIT/1 ML VIAL SUBCUT SCH ×2 (05:30→17:22)
[2020-08-28] MEDS: AMPICILLIN/SULBACTAM 1,500 MG VIAL IM SCH ×4 (05:30→23:18)
[2020-08-28 07:18] LABS: Basophils % 0.1 % (0.0-0.8); Eosinophils # 0.1 10*3/uL (0.0-0.87); Eosinophils % 1.1 % (0.00-10.9); Hematocrit 35.7 VOL% (35.7-47.0); Hemoglobin 11.9 GM/DL (12.0-16.0); Immature Granulocytes % 2.5 %; Immature Granulocytes Absolute 0.27 #; Lymphocytes # 1.5 10*3/uL (1.4-4.0); Lymphocytes % 13.7 % (21.3-54.2); Mean Corpuscular HGB Conc 33.3 GM/DL (32-36); Mean Corpuscular Volume 96.5 FL (87-102); Monocytes % 9.8 % (1.7-12.7); NRBC # 0.05 10*3/uL; Neutrophils % 72.8 % (38.7-73.9); Platelet Count 141 T/CUMM (130-400); Red Cell Distribution Width 15.5 % (9.3-17.3); White Blood Count 10.6 T/CUMM (4-12)
[2020-08-28 07:33] LABS: Calcium 8.2 MG/DL (8.5-10.1); Osmolality,Calculated 290.8 MOS/KG (273-304); Potassium 4.6 MMOL/L (3.5-5.1)
[2020-08-28] MEDS: ALBUTEROL/IPRATROPIUM 3 ML NEB RESP TX SCH ×3 (07:40→19:59)
[2020-08-28] MEDS: ACETYLCYSTEINE 20% 800 MG/4 ML VIAL RESP TX SCH ×2 (07:40→14:00)
[2020-08-28] MEDS: DOCUSATE SODIUM 100 MG CAPSULE PO SCH ×2 (09:44→21:45)
[2020-08-28] MEDS: predniSONE 20 MG TABLET PO SCH (09:44)
[2020-08-28] MEDS: METOPROLOL TARTRATE 25 MG TABLET PO SCH ×2 (09:44→21:45)
[2020-08-28] MEDS: MENTHOL/ZINC OXIDE OINT 71 GM JAR TOP SCH ×2 (09:44→22:33)
[2020-08-28] MEDS: POLYETHYLENE GLYCOL POWDER 17 GM PACK PEG SCH (09:44)
[2020-08-28] MEDS: MULTIVITAMIN (CENTRUM) TABLET PEG SCH (09:44)
[2020-08-28] MEDS: ASPIRIN CHEW 81 MG TABLET PO SCH (09:44)
[2020-08-28] MEDS: FUROSEMIDE 40 MG/4 ML VIAL IV SCH ×2 (17:22→17:48)
[2020-08-28] MEDS: PANTOPRAZOLE 40 MG VIAL IV SCH (17:50)
[2020-08-28] MEDS: AMINO ACIDS PROTEIN HYDROLYS PEG SCH (21:20)
[2020-08-28] MEDS ORDERED: hydrALAZINE 20 MG/1 ML VIAL IV PRN (22:14)
[2020-08-28] MEDS: AMPICILLIN/SULBACTAM 1,500 MG in SODIUM CHLORIDE 0.9% 100 ML IV SCH (22:33)
[2020-08-29] MEDS: ALBUTEROL/IPRATROPIUM 3 ML NEB RESP TX SCH ×2 (01:33→07:31)
[2020-08-29] MEDS: ACETYLCYSTEINE 20% 800 MG/4 ML VIAL RESP TX SCH ×2 (01:33→07:31)
[2020-08-29] MEDS: INSULIN REGULAR 100 UNIT/ML SUBCUT SCH ×3 (01:35→14:25)
[2020-08-29] MEDS: AMPICILLIN/SULBACTAM 1,500 MG VIAL IM SCH ×2 (04:21→14:25)
[2020-08-29] MEDS: HEPARIN 5,000 UNIT/1 ML VIAL SUBCUT SCH (04:22)
[2020-08-29 06:42] LABS: Basophils % 0.2 % (0.0-0.8); Eosinophils # 0.1 10*3/uL (0.0-0.87); Eosinophils % 1.2 % (0.00-10.9); Hematocrit 35.1 VOL% (35.7-47.0); Hemoglobin 11.6 GM/DL (12.0-16.0); Immature Granulocytes % 2.5 %; Immature Granulocytes Absolute 0.26 #; Lymphocytes # 1.3 10*3/uL (1.4-4.0); Lymphocytes % 12.7 % (21.3-54.2); Mean Corpuscular Volume 96.7 FL (87-102); Mean Platelet Volume 13.7 FL (9.6-12.0); Monocytes % 9.8 % (1.7-12.7); NRBC # 0.05 10*3/uL; Neutrophils % 73.6 % (38.7-73.9); Platelet Count 124 T/CUMM (130-400); Red Blood Count 3.63 MC/CUMM (3.8-5.5); Red Cell Distribution Width 15.6 % (9.3-17.3); White Blood Count 10.5 T/CUMM (4-12)
[2020-08-29 06:59] LABS: Calcium 8.2 MG/DL (8.5-10.1); Osmolality,Calculated 288.8 MOS/KG (273-304); Potassium 4.1 MMOL/L (3.5-5.1)
[2020-08-29 07:02] LABS: Alanine Aminotransferase 177 U/L (13-56); Albumin 1.9 G/DL (3.4-5.0); Alkaline Phosphatase 252 U/L (45-117); Aspartate Amino Transferase 108 U/L (0-37); Bilirubin,Total < 0.39 MG/DL (0.2-1.0); Blood Urea Nitrogen 59 MG/DL (7-18); Calcium 8.3 MG/DL (8.5-10.1); Carbon Dioxide 32 MMOL/L (21-32); Estimated Glom Filtration Rate 121 ML/MIN; Glucose 105 MG/DL (74-106); Osmolality,Calculated 291.7 MOS/KG (273-304); Potassium 4.1 MMOL/L (3.5-5.1); Sodium 138 MMOL/L (136-145); Total Protein 5.2 G/DL (6.4-8.3)
[2020-08-29 07:33] LABS: Hypochromasia 1+
[2020-08-29] MEDS: DOCUSATE SODIUM 100 MG CAPSULE PO SCH (09:02)
[2020-08-29] MEDS: POLYETHYLENE GLYCOL POWDER 17 GM PACK PEG SCH (09:02)
[2020-08-29] MEDS: METOPROLOL TARTRATE 25 MG TABLET PO SCH (09:14)
[2020-08-29] MEDS: MENTHOL/ZINC OXIDE OINT 71 GM JAR TOP SCH (09:14)
[2020-08-29] MEDS: predniSONE 20 MG TABLET PO SCH (09:14)
[2020-08-29] MEDS: ASPIRIN CHEW 81 MG TABLET PO SCH (09:14)
[2020-08-29] MEDS: MULTIVITAMIN (CENTRUM) TABLET PEG SCH (09:14)
[2020-08-29] MEDS: FUROSEMIDE 40 MG/4 ML VIAL IV SCH (09:21)
[2020-08-29] MEDS: AMPICILLIN/SULBACTAM 1,500 MG in SODIUM CHLORIDE 0.9% 100 ML IV SCH (09:22)
[2020-08-29 12:43] VITALS: BP 124/58
== END 2020-08-29 14:10 | DRG 133 ==
LOC: EDUNIT# → EDBD → N.ED 11:41 → N.EDINP 13:30 → SUATTDRO 13:30 → N.ICU 14:21 → N.TELES 08-15 17:42
PROVIDERS: ADMIT Internal Medicine; ATTEND Internal Medicine

== ENCOUNTER 2020-09-21 10:06 | Inpatient (IN) ==
[2020-09-21 10:42] LABS: Basophils # 0.1 10*3/uL (0.0-0.2); Basophils % 0.4 % (0.0-0.8); Hematocrit 50.2 VOL% (35.7-47.0); Hemoglobin 16.1 GM/DL (12.0-16.0); Immature Granulocytes % 0.5 %; Immature Granulocytes Absolute 0.08 #; Lymphocytes # 0.9 10*3/uL (1.4-4.0); Lymphocytes % 5.5 % (21.3-54.2); Mean Corpuscular HGB Conc 32.1 GM/DL (32-36); Mean Platelet Volume 12.8 FL (9.6-12.0); Monocytes % 10.7 % (1.7-12.7); NRBC # 0.05 10*3/uL; Neutrophils % 82.9 % (38.7-73.9); Platelet Count 309 T/CUMM (130-400); Red Blood Count 5.02 MC/CUMM (3.8-5.5); White Blood Count 15.7 T/CUMM (4-12)
[2020-09-21 11:03] LABS: Alanine Aminotransferase 30 U/L (13-56); Albumin 3.1 G/DL (3.4-5.0); Alkaline Phosphatase 178 U/L (45-117); Aspartate Amino Transferase 54 U/L (0-37); Blood Urea Nitrogen 49 MG/DL (7-18); Calcium 10.5 MG/DL (8.5-10.1); Glucose 360 MG/DL (74-106); Osmolality,Calculated 313.8 MOS/KG (273-304); Total Protein 9.1 G/DL (6.4-8.3)
[2020-09-21 11:04] LABS: Estimated Glom Filtration Rate 0 ML/MIN
[2020-09-21] MEDS ORDERED: ETOMIDATE 20 MG/10 ML VIAL IV ONE (11:04)
[2020-09-21] MEDS ORDERED: PIPERACILLIN/TAZOBACTAM 3,375 MG in SODIUM CHLORIDE 0.9% 100 ML IV STA (11:04)
[2020-09-21] MEDS ORDERED: ROCURONIUM 100 MG/10 ML VIAL IV ONE (11:06)
[2020-09-21] MEDS ORDERED: SODIUM CHLORIDE 0.9% 1,000 ML IV STA (11:12)
[2020-09-21 11:57] LABS: PT Patient Result 11.1 SECS (9.8-11.9); Partial Thromboplastin Time 25.6 SECS (23.9-33.8)
[2020-09-21 11:58] LABS: ABG Base Excess 7.4 MMOL/L (-2.5-2.5); ABG HCO3 31.3 MMOL/L (20-26); ABG PCO2 36.6 MM HG (35-48); ABG PH 7.528 (7.35-7.45); ABG TCO2 26.2 MMOL/L (23-27); Allen Test Positive; Pt O2 Delivery Device Ventilator
[2020-09-21 11:59] LABS: Bacteria,Urine Many /HPF (Few); Bilirubin,Urine Negative (Negative); Blood, Urine Negative (Negative); Glucose,Urine (UA) 50 mg/dL (Negative); Ketones,Urine Negative (Negative); Mucus,Urine Many /LPF (Occasional); Nitrite,Urine Negative (Negative); Protein,Urine >=500 MG/DL; Urine Appearance CLOUDY (Clear); Urine Color Yellow (Yellow); Urine Specific Gravity 1.016 (1.001-1.035); Urine Urobilinogen < 2.0 EU/DL (0.2-1.0); WBC,Urine 816 /HPF (0-6)
[2020-09-21] MEDS ORDERED: DEXAMETHASONE 4 MG/1 ML VIAL IV STA (12:30)
[2020-09-21] MEDS ORDERED: ONDANSETRON 4 MG/2 ML VIAL IV PRN (12:48)
[2020-09-21] MEDS ORDERED: ALBUTEROL 2.5 MG/3 ML NEB RESP TX PRN (12:48)
[2020-09-21] MEDS ORDERED: MEROPENEM 500 MG VIAL ONE (13:15)
[2020-09-21] MEDS ORDERED: SODIUM CHLORIDE 0.9% 100 ML IV ONE (13:16)
[2020-09-21] MEDS: ENOXAPARIN 30 MG/0.3 ML SYRINGE SUBCUT SCH (13:23)
[2020-09-21] MEDS: FAMOTIDINE 20 MG/2 ML VIAL IV SCH (13:24)
[2020-09-21] MEDS: MEROPENEM 500 MG in SODIUM CHLORIDE 0.9% 100 ML IV SCH ×2 (13:26→18:27)
[2020-09-21] MEDS: LEVOFLOXACIN INJ 500 MG in PREMIX 1 EACH IV SCH (14:15)
[2020-09-22] MEDS ORDERED: SODIUM CHLORIDE 0.9% 500 ML IV ONE (00:58)
[2020-09-22] MEDS: FAMOTIDINE 20 MG/2 ML VIAL IV SCH ×2 (01:10→13:43)
[2020-09-22] MEDS: MEROPENEM 500 MG in SODIUM CHLORIDE 0.9% 100 ML IV SCH ×4 (01:14→18:00)
[2020-09-22 05:20] LABS: Basophils # 0.1 10*3/uL (0.0-0.2); Basophils % 0.5 % (0.0-0.8); Eosinophils % 0.1 % (0.00-10.9); Hematocrit 38.3 VOL% (35.7-47.0); Hemoglobin 12.3 GM/DL (12.0-16.0); Immature Granulocytes % 0.6 %; Lymphocytes # 0.6 10*3/uL (1.4-4.0); Mean Corpuscular HGB Conc 32.1 GM/DL (32-36); Mean Corpuscular Volume 100.5 FL (87-102); Mean Platelet Volume 12.9 FL (9.6-12.0); Monocytes % 5.7 % (1.7-12.7); Neutrophils % 89.1 % (38.7-73.9); Platelet Count 247 T/CUMM (130-400); Red Blood Count 3.81 MC/CUMM (3.8-5.5); Red Cell Distribution Width 17.8 % (9.3-17.3); White Blood Count 15.5 T/CUMM (4-12)
[2020-09-22 05:36] LABS: Calcium 9.4 MG/DL (8.5-10.1)
[2020-09-22 05:50] LABS: Troponin I 0.428 NG/ML (0.00-0.045)
[2020-09-22 06:14] LABS: Anisocytosis 2+; Band Neutrophils 30 % (0-10); Lymphocytes 4 % (20-55); Macrocytosis 1+; Nucleated Red Blood Cells 1 (0-5); Platelet Estimate Normal; Segmented Neutrophils 62 % (50-85); Total Cells Counted 100
[2020-09-22] MEDS ORDERED: DEXTROSE 50% 25 GM/50 ML VIAL IV PRN (09:39)
[2020-09-22] MEDS ORDERED: GLUCAGON 1 MG VIAL IM PRN (09:39)
[2020-09-22] MEDS: POTASSIUM CHLORIDE INJ 30 MEQ in SODIUM CHLORIDE 0.45% 1,000 ML IV SCH ×2 (10:50→21:10)
[2020-09-22] MEDS: POTASSIUM CHLORIDE 20 MEQ/15 ML UDCUP PER TUBE SCH ×3 (10:50→17:48)
[2020-09-22] MEDS: carvediloL 12.5 MG TABLET PEG SCH ×2 (11:52→21:11)
[2020-09-22] MEDS ORDERED: GENTAMICIN INJ 300 MG in SODIUM CHLORIDE 0.9% 100 ML IV SCH (12:00)
[2020-09-22] MEDS: INSULIN LISPRO 100 UNIT/ML SUBCUT SCH ×2 (13:36→17:39)
[2020-09-22] MEDS: ISOSORBIDE DINITRATE 20 MG TABLET PEG SCH (13:49)
[2020-09-22] MEDS: ENOXAPARIN 30 MG/0.3 ML SYRINGE SUBCUT SCH (13:50)
[2020-09-22] MEDS: LEVOFLOXACIN INJ 500 MG in PREMIX 1 EACH IV SCH (14:39)
[2020-09-22] MEDS: INSULIN GLARGINE 100 UNIT/ML SUBCUT SCH (17:48)
[2020-09-23] MEDS: INSULIN LISPRO 100 UNIT/ML SUBCUT SCH ×4 (00:05→18:15)
[2020-09-23] MEDS: FAMOTIDINE 20 MG/2 ML VIAL IV SCH ×2 (01:30→13:20)
[2020-09-23] MEDS: MEROPENEM 500 MG in SODIUM CHLORIDE 0.9% 100 ML IV SCH ×4 (01:30→18:15)
[2020-09-23] MEDS: POTASSIUM CHLORIDE INJ 30 MEQ in SODIUM CHLORIDE 0.45% 1,000 ML IV SCH ×6 (03:17→23:30)
[2020-09-23 03:57] LABS: Basophils # 0.1 10*3/uL (0.0-0.2); Basophils % 0.4 % (0.0-0.8); Eosinophils # 0.1 10*3/uL (0.0-0.87); Eosinophils % 0.9 % (0.00-10.9); Hematocrit 33.2 VOL% (35.7-47.0); Hemoglobin 10.4 GM/DL (12.0-16.0); Immature Granulocytes % 0.7 %; Lymphocytes # 0.9 10*3/uL (1.4-4.0); Lymphocytes % 6.4 % (21.3-54.2); Mean Corpuscular HGB Conc 31.3 GM/DL (32-36); Mean Corpuscular Volume 102.8 FL (87-102); Mean Platelet Volume 13.1 FL (9.6-12.0); Monocytes % 7.9 % (1.7-12.7); Neutrophils % 83.7 % (38.7-73.9); Platelet Count 215 T/CUMM (130-400); Red Blood Count 3.23 MC/CUMM (3.8-5.5); Red Cell Distribution Width 18.1 % (9.3-17.3)
[2020-09-23 04:17] LABS: Calcium 8.7 MG/DL (8.5-10.1); Osmolality,Calculated 310.3 MOS/KG (273-304)
[2020-09-23] MEDS: ISOSORBIDE DINITRATE 20 MG TABLET PEG SCH (08:27)
[2020-09-23] MEDS: carvediloL 12.5 MG TABLET PEG SCH ×2 (08:28→20:35)
[2020-09-23] MEDS: POTASSIUM CHLORIDE 20 MEQ PACK PEG SCH ×2 (08:28→21:12)
[2020-09-23] MEDS: ASPIRIN CHEW 81 MG TABLET PO SCH (08:28)
[2020-09-23 08:32] LABS: ABG Base Excess 2.8 MMOL/L (-2.5-2.5); ABG Oxygen Saturation 99.2 % (95-100); ABG PCO2 30.2 MM HG (35-48); ABG PH 7.527 (7.35-7.45); ABG TCO2 22.4 MMOL/L (23-27)
[2020-09-23] MEDS ORDERED: ISOSORBIDE DINITRATE 20 MG TABLET PEG SCH (11:06)
[2020-09-23] MEDS: LOSARTAN 50 MG TABLET PEG SCH (11:32)
[2020-09-23] MEDS: ENOXAPARIN 40 MG/0.4 ML SYRINGE SUBCUT SCH (13:18)
[2020-09-23] MEDS: LEVOFLOXACIN INJ 500 MG in PREMIX 1 EACH IV SCH (14:03)
[2020-09-23] MEDS: INSULIN GLARGINE 100 UNIT/ML SUBCUT SCH (18:15)
[2020-09-24] MEDS: INSULIN LISPRO 100 UNIT/ML SUBCUT SCH ×4 (00:01→17:41)
[2020-09-24] MEDS: FAMOTIDINE 20 MG/2 ML VIAL IV SCH ×2 (00:05→12:08)
[2020-09-24] MEDS: MEROPENEM 500 MG in SODIUM CHLORIDE 0.9% 100 ML IV SCH ×2 (00:09→06:10)
[2020-09-24] MEDS: POTASSIUM CHLORIDE INJ 30 MEQ in SODIUM CHLORIDE 0.45% 1,000 ML IV SCH ×3 (03:01→09:48)
[2020-09-24 04:56] LABS: Basophils % 0.4 % (0.0-0.8); Eosinophils # 0.2 10*3/uL (0.0-0.87); Eosinophils % 1.8 % (0.00-10.9); Hematocrit 34.6 VOL% (35.7-47.0); Hemoglobin 10.5 GM/DL (12.0-16.0); Immature Granulocytes % 1.1 %; Immature Granulocytes Absolute 0.09 #; Lymphocytes % 11.9 % (21.3-54.2); Mean Corpuscular HGB Conc 30.3 GM/DL (32-36); Mean Corpuscular Volume 105.2 FL (87-102); Mean Platelet Volume 13.3 FL (9.6-12.0); Monocytes % 10.4 % (1.7-12.7); Neutrophils % 74.4 % (38.7-73.9); Platelet Count 197 T/CUMM (130-400); Red Blood Count 3.29 MC/CUMM (3.8-5.5); Red Cell Distribution Width 18.2 % (9.3-17.3); White Blood Count 8.3 T/CUMM (4-12)
[2020-09-24 05:12] LABS: Calcium 8.6 MG/DL (8.5-10.1); Osmolality,Calculated 297.7 MOS/KG (273-304)
[2020-09-24 05:14] LABS: Hypochromasia 1+; Macrocytosis 1+; Platelet Estimate Adequate
[2020-09-24] MEDS: carvediloL 12.5 MG TABLET PEG SCH (08:13)
[2020-09-24] MEDS: ASPIRIN CHEW 81 MG TABLET PO SCH (08:19)
[2020-09-24] MEDS: LOSARTAN 50 MG TABLET PEG SCH (08:19)
[2020-09-24] MEDS: ISOSORBIDE DINITRATE 20 MG TABLET PEG SCH (08:19)
[2020-09-24] MEDS: POTASSIUM CHLORIDE 20 MEQ PACK PEG SCH (08:50)
[2020-09-24] MEDS: cefTRIAXone 1,000 MG in SYRINGE 1 EACH IV SCH (09:38)
[2020-09-24] MEDS ORDERED: GENTAMICIN INJ 300 MG in SODIUM CHLORIDE 0.9% 100 ML IV SCH (12:00)
[2020-09-24] MEDS: amLODIPine 10 MG TABLET PO SCH (12:06)
[2020-09-24] MEDS: ENOXAPARIN 40 MG/0.4 ML SYRINGE SUBCUT SCH (12:06)
[2020-09-24] MEDS: INSULIN GLARGINE 100 UNIT/ML SUBCUT SCH (18:01)
[2020-09-24] MEDS: carvediloL 6.25 MG TABLET PEG SCH (20:46)
[2020-09-25] MEDS: INSULIN LISPRO 100 UNIT/ML SUBCUT SCH ×4 (00:08→17:32)
[2020-09-25] MEDS: FAMOTIDINE 20 MG/2 ML VIAL IV SCH (00:13)
[2020-09-25 03:47] LABS: Basophils % 0.4 % (0.0-0.8); Eosinophils # 0.2 10*3/uL (0.0-0.87); Hematocrit 38.3 VOL% (35.7-47.0); Hemoglobin 11.7 GM/DL (12.0-16.0); Immature Granulocytes % 1.2 %; Lymphocytes % 11.7 % (21.3-54.2); Mean Corpuscular HGB Conc 30.5 GM/DL (32-36); Mean Corpuscular Volume 103.5 FL (87-102); Mean Platelet Volume 12.1 FL (9.6-12.0); Monocytes % 11.4 % (1.7-12.7); Neutrophils % 73.3 % (38.7-73.9); Platelet Count 244 T/CUMM (130-400); Red Cell Distribution Width 17.2 % (9.3-17.3); White Blood Count 8.5 T/CUMM (4-12)
[2020-09-25 04:03] LABS: Calcium 9.3 MG/DL (8.5-10.1); Osmolality,Calculated 295.7 MOS/KG (273-304)
[2020-09-25] MEDS: amLODIPine 10 MG TABLET PO SCH (08:08)
[2020-09-25] MEDS: LOSARTAN 50 MG TABLET PEG SCH ×2 (08:08→20:17)
[2020-09-25] MEDS: FUROSEMIDE 40 MG TABLET PEG SCH (08:08)
[2020-09-25] MEDS: carvediloL 6.25 MG TABLET PEG SCH ×2 (08:08→20:26)
[2020-09-25] MEDS: ASPIRIN CHEW 81 MG TABLET PO SCH (08:08)
[2020-09-25] MEDS: FAMOTIDINE 20 MG TABLET PEG SCH ×2 (08:08→20:26)
[2020-09-25] MEDS: cefTRIAXone 1,000 MG in SYRINGE 1 EACH IV SCH (08:09)
[2020-09-25] MEDS ORDERED: POTASSIUM CHLORIDE 20 MEQ PACK PEG SCH (09:00)
[2020-09-25] MEDS: ISOSORBIDE DINITRATE 20 MG TABLET PEG SCH ×2 (09:51→20:26)
[2020-09-25] MEDS: ENOXAPARIN 40 MG/0.4 ML SYRINGE SUBCUT SCH (13:30)
[2020-09-26] MEDS: INSULIN LISPRO 100 UNIT/ML SUBCUT SCH ×3 (01:49→11:41)
[2020-09-26 06:13] LABS: Basophils % 0.4 % (0.0-0.8); Eosinophils # 0.1 10*3/uL (0.0-0.87); Hematocrit 35.3 VOL% (35.7-47.0); Hemoglobin 11.2 GM/DL (12.0-16.0); Immature Granulocytes % 1.2 %; Lymphocytes # 1.9 10*3/uL (1.4-4.0); Lymphocytes % 23.5 % (21.3-54.2); Mean Corpuscular HGB Conc 31.7 GM/DL (32-36); Mean Corpuscular Volume 101.4 FL (87-102); Mean Platelet Volume 13.4 FL (9.6-12.0); Monocytes % 13.1 % (1.7-12.7); Neutrophils % 60.8 % (38.7-73.9); Platelet Count 192 T/CUMM (130-400); Red Blood Count 3.48 MC/CUMM (3.8-5.5); Red Cell Distribution Width 16.8 % (9.3-17.3); White Blood Count 8.1 T/CUMM (4-12)
[2020-09-26 06:15] LABS: Albumin 2.1 G/DL (3.4-5.0); Bilirubin,Total 0.7 MG/DL (0.2-1.0); Calcium 8.8 MG/DL (8.5-10.1); Total Protein 6.3 G/DL (6.4-8.3)
[2020-09-26] MEDS: cefTRIAXone 1,000 MG in SYRINGE 1 EACH IV SCH (09:56)
[2020-09-26] MEDS: carvediloL 6.25 MG TABLET PEG SCH (09:57)
[2020-09-26] MEDS: ISOSORBIDE DINITRATE 20 MG TABLET PEG SCH (09:57)
[2020-09-26] MEDS: ASPIRIN CHEW 81 MG TABLET PO SCH (09:57)
[2020-09-26] MEDS: FUROSEMIDE 40 MG TABLET PEG SCH (09:58)
[2020-09-26] MEDS: amLODIPine 10 MG TABLET PO SCH (09:58)
[2020-09-26] MEDS: FAMOTIDINE 20 MG TABLET PEG SCH (09:58)
[2020-09-26] MEDS: LOSARTAN 50 MG TABLET PEG SCH (09:58)
[2020-09-26 11:32] VITALS: BP 109/39
[2020-09-26] MEDS: ENOXAPARIN 40 MG/0.4 ML SYRINGE SUBCUT SCH (12:39)
[2020-09-26] MEDS ORDERED: CLINDAMYCIN 15 MG/ML 100 ML/BOTTLE PO SCH (14:00)
== END 2020-09-26 12:56 | DRG 133 ==
LOC: EDUNIT# → EDBD → N.ED 10:06 → SUATTDRO 12:40 → N.EDINP 12:40 → N.ICU 16:04 → N.5E 09-25 10:24
PROVIDERS: ADMIT Internal Medicine; ATTEND Internal Medicine

== ENCOUNTER 2020-10-25 19:26 | Inpatient (IN) ==
[2020-10-25] MEDS ORDERED: SODIUM CHLORIDE 0.9% 1,000 ML IV STA (20:06)
[2020-10-25] MEDS ORDERED: ONDANSETRON 4 MG/2 ML VIAL IV STA (20:15)
[2020-10-25 20:43] LABS: Bacteria,Urine Moderate /HPF (Few); Bilirubin,Urine Negative (Negative); Blood, Urine Small mg/dL (Negative); Glucose,Urine (UA) Negative (Negative); Ketones,Urine Negative (Negative); Mucus,Urine Occasional /LPF (Occasional); Nitrite,Urine Negative (Negative); Protein,Urine 30 MG/DL; RBC,Urine 5 /HPF (0-4); Squamous Epithelial Cell,Urine Occasional /HPF (0-10); Urine Appearance CLOUDY (Clear); Urine Color Yellow (Yellow); Urine Specific Gravity 1.017 (1.001-1.035); Urine Urobilinogen < 2.0 EU/DL (0.2-1.0); WBC,Urine 151 /HPF (0-6)
[2020-10-25 20:49] LABS: Basophils % 0.4 % (0.0-0.8); Eosinophils # 0.3 10*3/uL (0.0-0.87); Eosinophils % 3.3 % (0.00-10.9); Hematocrit 43.5 VOL% (35.7-47.0); Hemoglobin 13.5 GM/DL (12.0-16.0); Immature Granulocytes % 0.3 %; Immature Granulocytes Absolute 0.03 #; Lymphocytes # 1.5 10*3/uL (1.4-4.0); Mean Corpuscular Volume 103.1 FL (87-102); Monocytes % 10.6 % (1.7-12.7); Neutrophils % 69.4 % (38.7-73.9); Platelet Count 113 T/CUMM (130-400); Red Blood Count 4.22 MC/CUMM (3.8-5.5); Red Cell Distribution Width 14.8 % (9.3-17.3); White Blood Count 9.3 T/CUMM (4-12)
[2020-10-25 21:09] LABS: Bilirubin,Total 0.6 MG/DL (0.2-1.0); Calcium 9.9 MG/DL (8.5-10.1); Osmolality,Calculated 295.8 MOS/KG (273-304); Potassium 3.8 MMOL/L (3.5-5.1); Total Protein 8.2 G/DL (6.4-8.3)
[2020-10-25] MEDS ORDERED: DEXTROSE 50% 25 GM/50 ML VIAL IV PRN (23:19)
[2020-10-25] MEDS ORDERED: ONDANSETRON 4 MG/2 ML VIAL IV PRN (23:19)
[2020-10-25] MEDS ORDERED: GLUCAGON 1 MG VIAL IM PRN (23:19)
[2020-10-25] MEDS ORDERED: cefTRIAXone 1,000 MG in SYRINGE 1 EACH IV SCH (23:30)
[2020-10-26] MEDS: SODIUM CHLORIDE 0.9% 1,000 ML IV SCH ×2 (01:58→16:00)
[2020-10-26] MEDS: ENOXAPARIN 40 MG/0.4 ML SYRINGE SUBCUT SCH (02:02)
[2020-10-26 04:06] LABS: Basophils # 0.1 10*3/uL (0.0-0.2); Basophils % 0.3 % (0.0-0.8); Eosinophils % 0.1 % (0.00-10.9); Hematocrit 41.4 VOL% (35.7-47.0); Hemoglobin 12.8 GM/DL (12.0-16.0); Immature Granulocytes % 0.7 %; Immature Granulocytes Absolute 0.16 #; Lymphocytes # 0.8 10*3/uL (1.4-4.0); Lymphocytes % 3.6 % (21.3-54.2); Mean Corpuscular HGB Conc 30.9 GM/DL (32-36); Mean Platelet Volume 14.8 FL (9.6-12.0); Monocytes % 7.2 % (1.7-12.7); Neutrophils % 88.1 % (38.7-73.9); Red Blood Count 3.98 MC/CUMM (3.8-5.5); Red Cell Distribution Width 15.1 % (9.3-17.3)
[2020-10-26 04:18] LABS: Platelet Count 90 T/CUMM (130-400); White Blood Count 22.4 T/CUMM (4-12)
[2020-10-26 04:25] LABS: Band Neutrophils 5 % (0-10); Hypochromasia 1+; Lymphocytes 2 % (20-55); Macrocytosis 1+; Metamyelocytes 2 %; Segmented Neutrophils 83 % (50-85); Total Cells Counted 100
[2020-10-26 04:35] LABS: Albumin 2.5 G/DL (3.4-5.0); Bilirubin,Total 0.7 MG/DL (0.2-1.0); Calcium 9.4 MG/DL (8.5-10.1); Osmolality,Calculated 292.3 MOS/KG (273-304); Potassium 3.9 MMOL/L (3.5-5.1); Total Protein 7.6 G/DL (6.4-8.3)
[2020-10-26] MEDS: INSULIN REGULAR 100 UNIT/ML SUBCUT SCH ×3 (07:35→20:43)
[2020-10-26] MEDS ORDERED: SODIUM PHOSPHATE ENEMA 133 ML BOTTLE RECTAL STA (11:20)
[2020-10-26] MEDS: carvediloL 6.25 MG TABLET PO SCH ×2 (13:00→21:11)
[2020-10-26] MEDS: LOSARTAN 50 MG TABLET PO SCH ×2 (13:00→21:04)
[2020-10-26] MEDS: ISOSORBIDE DINITRATE 20 MG TABLET PO SCH (13:00)
[2020-10-26] MEDS: ASPIRIN CHEW 81 MG TABLET PO SCH (13:00)
[2020-10-26] MEDS ORDERED: ALBUTEROL/IPRATROPIUM 3 ML NEB RESP TX PRN (15:08)
[2020-10-26] MEDS: AZITHROMYCIN INJ 500 MG in SODIUM CHLORIDE 0.9% 250 ML IV SCH (16:15)
[2020-10-26] MEDS ORDERED: ETOMIDATE 20 MG/10 ML VIAL IV ONE (17:38)
[2020-10-26] MEDS ORDERED: SUCCINYLCHOLINE 200 MG/10 ML VIAL ONE (17:39)
[2020-10-26 17:57] LABS: Calcium 9.3 MG/DL (8.5-10.1); Potassium 3.8 MMOL/L (3.5-5.1)
[2020-10-26 19:20] LABS: ABG Base Excess 8.4 MMOL/L (-2.5-2.5); ABG HCO3 32.2 MMOL/L (20-26); ABG Oxygen Saturation 99.9 % (95-100); ABG PCO2 33.5 MM HG (35-48); ABG PH 7.571 (7.35-7.45); ABG TCO2 27.5 MMOL/L (23-27)
[2020-10-26] MEDS: PIPERACILLIN/TAZOBACTAM 3,375 MG in SODIUM CHLORIDE 0.9% 100 ML IV SCH (20:00)
[2020-10-26] MEDS ORDERED: NOREPINEPHRINE 8 MG in SODIUM CHLORIDE 0.9% 242 ML IV PRN (22:38)
[2020-10-26] MEDS: VANCOMYCIN INJ 1,250 MG in SODIUM CHLORIDE 0.9% 250 ML IV SCH (22:50)
[2020-10-26] MEDS: guaiFENesin/DM ER 600-30 MG TABLET PO SCH (23:14)
[2020-10-27 00:29] LABS: Allen Test Positive; Pt O2 Delivery Device Ventilator
[2020-10-27 00:32] LABS: ABG Base Excess 6.8 MMOL/L (-2.5-2.5); ABG HCO3 30.6 MMOL/L (20-26); ABG Oxygen Saturation 99.7 % (95-100); ABG PCO2 42.2 MM HG (35-48); ABG PH 7.474 (7.35-7.45); ABG TCO2 27.9 MMOL/L (23-27)
[2020-10-27] MEDS: ALBUTEROL/IPRATROPIUM 3 ML NEB RESP TX SCH ×5 (01:04→19:25)
[2020-10-27] MEDS: PIPERACILLIN/TAZOBACTAM 3,375 MG in SODIUM CHLORIDE 0.9% 100 ML IV SCH ×3 (02:45→18:19)
[2020-10-27] MEDS ORDERED: SODIUM CHLORIDE 0.9% 500 ML IV ONE (03:12)
[2020-10-27 03:59] LABS: Basophils % 0.2 % (0.0-0.8); Eosinophils # 0.3 10*3/uL (0.0-0.87); Hematocrit 30.2 VOL% (35.7-47.0); Immature Granulocytes % 0.5 %; Immature Granulocytes Absolute 0.07 #; Lymphocytes # 1.2 10*3/uL (1.4-4.0); Lymphocytes % 7.5 % (21.3-54.2); Mean Corpuscular HGB Conc 30.8 GM/DL (32-36); Mean Corpuscular Volume 103.1 FL (87-102); Mean Platelet Volume 13.3 FL (9.6-12.0); Neutrophils % 80.8 % (38.7-73.9); Red Cell Distribution Width 15.1 % (9.3-17.3)
[2020-10-27 04:05] LABS: Hemoglobin 9.3 GM/DL (12.0-16.0); Platelet Count 116 T/CUMM (130-400); Red Blood Count 2.93 MC/CUMM (3.8-5.5); White Blood Count 15.4 T/CUMM (4-12)
[2020-10-27 04:11] LABS: ABG Base Excess 5.5 MMOL/L (-2.5-2.5); ABG HCO3 27.9 MMOL/L (20-26); ABG Oxygen Saturation 98.8 % (95-100); ABG PCO2 33.5 MM HG (35-48); ABG PH 7.539 (7.35-7.45); ABG PO2 179.4 MM HG (80-95)
[2020-10-27 04:17] LABS: Hypochromasia 1+; Macrocytosis 1+
[2020-10-27 04:18] LABS: Platelet Estimate Decreased
[2020-10-27] MEDS: SODIUM CHLORIDE 0.9% 1,000 ML IV SCH (06:16)
[2020-10-27] MEDS: INSULIN REGULAR 100 UNIT/ML SUBCUT SCH ×3 (07:52→19:17)
[2020-10-27] MEDS: VANCOMYCIN INJ 1,250 MG in SODIUM CHLORIDE 0.9% 250 ML IV SCH ×2 (09:04→21:01)
[2020-10-27] MEDS: ISOSORBIDE DINITRATE 20 MG TABLET PO SCH (09:04)
[2020-10-27] MEDS: ASPIRIN CHEW 81 MG TABLET PO SCH (09:04)
[2020-10-27] MEDS: guaiFENesin/DM ER 600-30 MG TABLET PO SCH ×2 (09:04→21:54)
[2020-10-27] MEDS: carvediloL 6.25 MG TABLET PO SCH (09:04)
[2020-10-27] MEDS: LOSARTAN 50 MG TABLET PO SCH ×2 (09:04→21:45)
[2020-10-27 09:14] LABS: Calcium 8.7 MG/DL (8.5-10.1); Osmolality,Calculated 301.4 MOS/KG (273-304); Potassium 2.9 MMOL/L (3.5-5.1)
[2020-10-27] MEDS: POTASSIUM CHLORIDE 20 MEQ/15 ML UDCUP PEG SCH ×3 (09:45→18:18)
[2020-10-27] MEDS: POLYETHYLENE GLYCOL POWDER 17 GM PACK PEG SCH (16:00)
[2020-10-27] MEDS: AZITHROMYCIN INJ 500 MG in SODIUM CHLORIDE 0.9% 250 ML IV SCH (16:00)
[2020-10-27] MEDS: DOCUSATE SODIUM 100 MG CAPSULE PEG SCH (21:45)
[2020-10-28] MEDS: ALBUTEROL/IPRATROPIUM 3 ML NEB RESP TX SCH ×4 (00:08→21:12)
[2020-10-28] MEDS: carvediloL 6.25 MG TABLET PO SCH ×3 (00:45→20:45)
[2020-10-28] MEDS: INSULIN REGULAR 100 UNIT/ML SUBCUT SCH ×4 (00:46→17:32)
[2020-10-28] MEDS: PIPERACILLIN/TAZOBACTAM 3,375 MG in SODIUM CHLORIDE 0.9% 100 ML IV SCH ×3 (02:01→18:20)
[2020-10-28 04:14] LABS: Basophils % 0.3 % (0.0-0.8); Eosinophils # 0.6 10*3/uL (0.0-0.87); Eosinophils % 4.8 % (0.00-10.9); Hematocrit 28.7 VOL% (35.7-47.0); Hemoglobin 8.7 GM/DL (12.0-16.0); Immature Granulocytes % 0.6 %; Immature Granulocytes Absolute 0.08 #; Lymphocytes # 1.1 10*3/uL (1.4-4.0); Lymphocytes % 8.3 % (21.3-54.2); Mean Corpuscular HGB Conc 30.3 GM/DL (32-36); Mean Corpuscular Volume 105.9 FL (87-102); Mean Platelet Volume 14.5 FL (9.6-12.0); Monocytes % 9.2 % (1.7-12.7); Neutrophils % 76.8 % (38.7-73.9); Platelet Count 112 T/CUMM (130-400); Red Blood Count 2.71 MC/CUMM (3.8-5.5); Red Cell Distribution Width 15.6 % (9.3-17.3); White Blood Count 13.1 T/CUMM (4-12)
[2020-10-28 04:16] LABS: Calcium 8.5 MG/DL (8.5-10.1); Osmolality,Calculated 298.7 MOS/KG (273-304); Potassium 4.1 MMOL/L (3.5-5.1)
[2020-10-28 04:54] LABS: Hypochromasia 1+; Microcytosis 1+; Platelet Estimate Decreased
[2020-10-28 05:53] LABS: ABG Base Excess 2.3 MMOL/L (-2.5-2.5); ABG HCO3 26.4 MMOL/L (20-26); ABG Oxygen Saturation 94.8 % (95-100); ABG PCO2 45.1 MM HG (35-48); ABG PH 7.394 (7.35-7.45); ABG PO2 74.9 MM HG (80-95); ABG TCO2 25.4 MMOL/L (23-27); Allen Test Positive; Pt O2 Delivery Device Ventilator
[2020-10-28] MEDS ORDERED: AZITHROMYCIN 250 MG TABLET PO SCH (09:00)
[2020-10-28] MEDS: MULTIVITAMIN (CENTRUM) TABLET PEG SCH (11:00)
[2020-10-28] MEDS: DOCUSATE SODIUM 100 MG CAPSULE PEG SCH ×2 (11:00→20:45)
[2020-10-28] MEDS: ISOSORBIDE DINITRATE 20 MG TABLET PO SCH (11:00)
[2020-10-28] MEDS: LOSARTAN 50 MG TABLET PO SCH ×2 (11:00→20:45)
[2020-10-28] MEDS: ASPIRIN CHEW 81 MG TABLET PO SCH (11:00)
[2020-10-28] MEDS: POLYETHYLENE GLYCOL POWDER 17 GM PACK PEG SCH (11:00)
[2020-10-28] MEDS: VANCOMYCIN INJ 1,250 MG in SODIUM CHLORIDE 0.9% 250 ML IV SCH ×2 (11:01→18:23)
[2020-10-28] MEDS: guaiFENesin/DM ER 600-30 MG TABLET PO SCH ×2 (11:01→20:45)
[2020-10-28 11:54] LABS: % Iron Saturation 13.7 % (18-50); Ferritin 202.2 ng/ml (8-252)
[2020-10-28 12:13] LABS: Folate 12.4 NG/ML (5.38-24.0); Vitamin B12 > 2000 PG/ML (211-911)
[2020-10-29] MEDS: INSULIN REGULAR 100 UNIT/ML SUBCUT SCH ×5 (00:15→23:38)
[2020-10-29] MEDS: PIPERACILLIN/TAZOBACTAM 3,375 MG in SODIUM CHLORIDE 0.9% 100 ML IV SCH ×2 (02:28→09:00)
[2020-10-29 04:19] LABS: ABG Base Excess 2.6 MMOL/L (-2.5-2.5); ABG HCO3 26.7 MMOL/L (20-26); ABG Oxygen Saturation 98.5 % (95-100); ABG PH 7.428 (7.35-7.45); ABG TCO2 25.1 MMOL/L (23-27); Allen Test Positive; Pt O2 Delivery Device Ventilator
[2020-10-29 04:53] LABS: Basophils % 0.3 % (0.0-0.8); Eosinophils # 0.5 10*3/uL (0.0-0.87); Eosinophils % 5.2 % (0.00-10.9); Hemoglobin 8.5 GM/DL (12.0-16.0); Immature Granulocytes % 0.9 %; Immature Granulocytes Absolute 0.09 #; Lymphocytes # 1.4 10*3/uL (1.4-4.0); Lymphocytes % 13.5 % (21.3-54.2); Mean Corpuscular HGB Conc 30.4 GM/DL (32-36); Mean Corpuscular Volume 104.9 FL (87-102); Mean Platelet Volume 15.1 FL (9.6-12.0); Monocytes % 10.9 % (1.7-12.7); Neutrophils % 69.2 % (38.7-73.9); Platelet Count 115 T/CUMM (130-400); Red Blood Count 2.67 MC/CUMM (3.8-5.5); Red Cell Distribution Width 15.3 % (9.3-17.3); White Blood Count 10.2 T/CUMM (4-12)
[2020-10-29 05:19] LABS: Albumin 1.8 G/DL (3.4-5.0); Bilirubin,Total 0.4 MG/DL (0.2-1.0); Calcium 8.7 MG/DL (8.5-10.1); Osmolality,Calculated 290.1 MOS/KG (273-304); Potassium 4.1 MMOL/L (3.5-5.1)
[2020-10-29] MEDS: ALBUTEROL/IPRATROPIUM 3 ML NEB RESP TX SCH ×4 (07:00→18:58)
[2020-10-29] MEDS: ISOSORBIDE DINITRATE 20 MG TABLET PO SCH (08:34)
[2020-10-29] MEDS: POLYETHYLENE GLYCOL POWDER 17 GM PACK PEG SCH (08:34)
[2020-10-29] MEDS: LOSARTAN 50 MG TABLET PO SCH ×2 (08:34→20:28)
[2020-10-29] MEDS: guaiFENesin/DM ER 600-30 MG TABLET PO SCH ×2 (08:34→20:31)
[2020-10-29] MEDS: ASPIRIN CHEW 81 MG TABLET PO SCH (08:34)
[2020-10-29] MEDS: MULTIVITAMIN (CENTRUM) TABLET PEG SCH (08:34)
[2020-10-29] MEDS: DOCUSATE SODIUM 100 MG CAPSULE PEG SCH ×2 (08:34→20:28)
[2020-10-29] MEDS: carvediloL 6.25 MG TABLET PO SCH ×2 (08:34→20:28)
[2020-10-29] MEDS ORDERED: FUROSEMIDE 40 MG/4 ML VIAL IV ONE (09:17)
[2020-10-29 12:44] LABS: VBG Base Excess 4.7 MEQ/L (0-4); VBG HCO3 30.2 MEQ/L (24-28); VBG Oxygen Saturation 64.7 %; VBG PCO2 49.6 MMHG (41-51); VBG PH 7.403; VBG PO2 36.8 MMHG (17-40); VBG Total CO2 31.8 MMOL/L
[2020-10-29] MEDS: MEROPENEM 500 MG in SODIUM CHLORIDE 0.9% 100 ML IV SCH ×2 (15:44→20:28)
[2020-10-29 18:48] LABS: Bacteria,Urine Occasional /HPF (Few); Bilirubin,Urine Negative (Negative); Blood, Urine Negative (Negative); Glucose,Urine (UA) Negative (Negative); Hyaline Casts,Urine 1 /LPF (0-3); Ketones,Urine Negative (Negative); Mucus,Urine Occasional /LPF (Occasional); Nitrite,Urine Negative (Negative); Protein,Urine Negative; RBC,Urine 1 /HPF (0-4); Squamous Epithelial Cell,Urine Few /HPF (0-10); Urine Appearance Slightly Hazy (Clear); Urine Color Yellow (Yellow); Urine Urobilinogen < 2.0 EU/DL (0.2-1.0); WBC,Urine 3 /HPF (0-6)
[2020-10-29] MEDS: ENOXAPARIN 40 MG/0.4 ML SYRINGE SUBCUT SCH (23:38)
[2020-10-30] MEDS: ALBUTEROL/IPRATROPIUM 3 ML NEB RESP TX SCH ×4 (00:20→19:04)
[2020-10-30] MEDS: MEROPENEM 500 MG in SODIUM CHLORIDE 0.9% 100 ML IV SCH ×4 (02:47→22:02)
[2020-10-30 05:22] LABS: Basophils % 0.4 % (0.0-0.8); Eosinophils # 0.4 10*3/uL (0.0-0.87); Eosinophils % 4.6 % (0.00-10.9); Hematocrit 30.7 VOL% (35.7-47.0); Hemoglobin 9.7 GM/DL (12.0-16.0); Immature Granulocytes % 0.8 %; Immature Granulocytes Absolute 0.08 #; Lymphocytes # 1.3 10*3/uL (1.4-4.0); Lymphocytes % 13.5 % (21.3-54.2); Mean Corpuscular HGB Conc 31.6 GM/DL (32-36); Monocytes % 9.1 % (1.7-12.7); Neutrophils % 71.6 % (38.7-73.9); Platelet Count 130 T/CUMM (130-400); Red Blood Count 3.01 MC/CUMM (3.8-5.5); Red Cell Distribution Width 14.8 % (9.3-17.3); White Blood Count 9.5 T/CUMM (4-12)
[2020-10-30] MEDS: INSULIN REGULAR 100 UNIT/ML SUBCUT SCH ×3 (06:20→17:54)
[2020-10-30] MEDS: ASPIRIN CHEW 81 MG TABLET PO SCH (08:47)
[2020-10-30] MEDS: ISOSORBIDE DINITRATE 20 MG TABLET PO SCH (08:48)
[2020-10-30] MEDS: guaiFENesin/DM ER 600-30 MG TABLET PO SCH ×2 (08:48→21:24)
[2020-10-30] MEDS: DOCUSATE SODIUM 100 MG CAPSULE PEG SCH ×2 (08:48→21:24)
[2020-10-30] MEDS: LOSARTAN 50 MG TABLET PO SCH ×2 (08:48→21:24)
[2020-10-30] MEDS: carvediloL 6.25 MG TABLET PO SCH ×2 (08:48→21:24)
[2020-10-30] MEDS: POLYETHYLENE GLYCOL POWDER 17 GM PACK PEG SCH (08:48)
[2020-10-30] MEDS: MULTIVITAMIN (CENTRUM) TABLET PEG SCH (08:48)
[2020-10-30 09:13] LABS: Allen Test Positive; Pt O2 Delivery Device Ventilator
[2020-10-30 09:14] LABS: ABG Base Excess 3.7 MMOL/L (-2.5-2.5); ABG HCO3 27.7 MMOL/L (20-26); ABG Oxygen Saturation 95.1 % (95-100); ABG PCO2 44.2 MM HG (35-48); ABG PO2 75.7 MM HG (80-95); ABG TCO2 26.1 MMOL/L (23-27)
[2020-10-30 09:37] LABS: Calcium 8.6 MG/DL (8.5-10.1); Osmolality,Calculated 282.3 MOS/KG (273-304); Potassium 3.8 MMOL/L (3.5-5.1)
[2020-10-30] MEDS: FAMOTIDINE 20 MG/2 ML VIAL IV SCH ×2 (09:54→21:30)
[2020-10-30] MEDS ORDERED: FUROSEMIDE 40 MG/4 ML VIAL IV ONE (12:55)
[2020-10-30] MEDS ORDERED: hydrALAZINE 20 MG/1 ML VIAL IV PRN (22:36)
[2020-10-31] MEDS: INSULIN REGULAR 100 UNIT/ML SUBCUT SCH ×5 (00:08→23:48)
[2020-10-31] MEDS: ENOXAPARIN 40 MG/0.4 ML SYRINGE SUBCUT SCH ×2 (00:08→23:47)
[2020-10-31] MEDS: FUROSEMIDE 40 MG/4 ML VIAL IV SCH ×3 (00:09→23:48)
[2020-10-31] MEDS: ALBUTEROL/IPRATROPIUM 3 ML NEB RESP TX SCH ×5 (00:57→23:54)
[2020-10-31 04:45] LABS: ABG Base Excess 7.4 MMOL/L (-2.5-2.5); ABG HCO3 31.2 MMOL/L (20-26); ABG Oxygen Saturation 99.4 % (95-100); ABG PCO2 48.4 MM HG (35-48); ABG PH 7.439 (7.35-7.45); ABG TCO2 29.3 MMOL/L (23-27); Allen Test Positive; Pt O2 Delivery Device BIPAP
[2020-10-31] MEDS: MEROPENEM 500 MG in SODIUM CHLORIDE 0.9% 100 ML IV SCH ×4 (04:46→21:38)
[2020-10-31 05:12] LABS: Basophils % 0.4 % (0.0-0.8); Eosinophils # 0.5 10*3/uL (0.0-0.87); Eosinophils % 5.2 % (0.00-10.9); Hematocrit 33.2 VOL% (35.7-47.0); Hemoglobin 10.1 GM/DL (12.0-16.0); Immature Granulocytes % 0.8 %; Immature Granulocytes Absolute 0.07 #; Lymphocytes # 1.5 10*3/uL (1.4-4.0); Lymphocytes % 16.3 % (21.3-54.2); Mean Corpuscular HGB Conc 30.4 GM/DL (32-36); Mean Corpuscular Volume 103.4 FL (87-102); Mean Platelet Volume 13.4 FL (9.6-12.0); Monocytes % 10.7 % (1.7-12.7); Neutrophils % 66.6 % (38.7-73.9); Platelet Count 175 T/CUMM (130-400); Red Blood Count 3.21 MC/CUMM (3.8-5.5); Red Cell Distribution Width 14.4 % (9.3-17.3); White Blood Count 8.9 T/CUMM (4-12)
[2020-10-31 05:19] LABS: Calcium 9.1 MG/DL (8.5-10.1); Osmolality,Calculated 278.7 MOS/KG (273-304); Potassium 3.4 MMOL/L (3.5-5.1)
[2020-10-31 05:36] LABS: Eosinophils 4 % (0-10); Hypochromasia 1+; Lymphocytes 16 % (20-55); Microcytosis 1+; Platelet Estimate Adequate; Segmented Neutrophils 70 % (50-85); Total Cells Counted 100
[2020-10-31] MEDS: MULTIVITAMIN (CENTRUM) TABLET PEG SCH (08:46)
[2020-10-31] MEDS: LEVOFLOXACIN INJ 750 MG in PREMIX 1 EACH IV SCH (08:46)
[2020-10-31] MEDS: guaiFENesin/DM ER 600-30 MG TABLET PO SCH ×2 (08:46→21:37)
[2020-10-31] MEDS: ISOSORBIDE DINITRATE 20 MG TABLET PO SCH (08:47)
[2020-10-31] MEDS: POTASSIUM CHLORIDE 20 MEQ/15 ML UDCUP PER TUBE SCH ×4 (08:47→21:44)
[2020-10-31] MEDS: ASPIRIN CHEW 81 MG TABLET PO SCH (08:47)
[2020-10-31] MEDS: carvediloL 6.25 MG TABLET PO SCH ×2 (08:47→21:37)
[2020-10-31] MEDS: DOCUSATE SODIUM 100 MG CAPSULE PEG SCH ×2 (08:47→21:37)
[2020-10-31] MEDS: LOSARTAN 50 MG TABLET PO SCH ×2 (08:47→21:37)
[2020-10-31] MEDS: POLYETHYLENE GLYCOL POWDER 17 GM PACK PEG SCH (08:47)
[2020-10-31] MEDS: FAMOTIDINE 20 MG/2 ML VIAL IV SCH ×2 (10:25→21:37)
[2020-11-01 03:55] LABS: ABG Base Excess 8.2 MMOL/L (-2.5-2.5); ABG HCO3 32.9 MMOL/L (20-26); ABG Oxygen Saturation 98.9 % (95-100); ABG PCO2 46.5 MM HG (35-48); ABG PH 7.468 (7.35-7.45); ABG PO2 161.4 MM HG (80-95); ABG TCO2 34.4 MMOL/L (23-27); Allen Test Positive; Pt O2 Delivery Device BIPAP
[2020-11-01] MEDS: MEROPENEM 500 MG in SODIUM CHLORIDE 0.9% 100 ML IV SCH ×4 (03:55→21:51)
[2020-11-01 04:34] LABS: Basophils # 0.1 10*3/uL (0.0-0.2); Basophils % 0.6 % (0.0-0.8); Eosinophils # 0.4 10*3/uL (0.0-0.87); Eosinophils % 4.9 % (0.00-10.9); Hematocrit 33.7 VOL% (35.7-47.0); Hemoglobin 10.4 GM/DL (12.0-16.0); Immature Granulocytes Absolute 0.09 #; Lymphocytes # 1.9 10*3/uL (1.4-4.0); Lymphocytes % 21.4 % (21.3-54.2); Mean Corpuscular HGB Conc 30.9 GM/DL (32-36); Mean Platelet Volume 12.2 FL (9.6-12.0); Neutrophils % 60.1 % (38.7-73.9); Platelet Count 217 T/CUMM (130-400); Red Blood Count 3.24 MC/CUMM (3.8-5.5); Red Cell Distribution Width 14.5 % (9.3-17.3); White Blood Count 8.8 T/CUMM (4-12)
[2020-11-01 04:46] LABS: Calcium 9.1 MG/DL (8.5-10.1); Osmolality,Calculated 278.8 MOS/KG (273-304); Potassium 4.3 MMOL/L (3.5-5.1)
[2020-11-01 05:00] LABS: Hypochromasia Slight; Microcytosis Slight; Platelet Estimate Adequate
[2020-11-01] MEDS: INSULIN REGULAR 100 UNIT/ML SUBCUT SCH ×3 (05:05→17:56)
[2020-11-01] MEDS: ALBUTEROL/IPRATROPIUM 3 ML NEB RESP TX SCH ×3 (07:34→20:30)
[2020-11-01] MEDS: LOSARTAN 50 MG TABLET PO SCH (08:08)
[2020-11-01] MEDS: DOCUSATE SODIUM 100 MG CAPSULE PEG SCH ×2 (08:08→21:51)
[2020-11-01] MEDS: ISOSORBIDE DINITRATE 20 MG TABLET PO SCH (08:53)
[2020-11-01] MEDS: POLYETHYLENE GLYCOL POWDER 17 GM PACK PEG SCH (08:53)
[2020-11-01] MEDS: guaiFENesin/DM ER 600-30 MG TABLET PO SCH ×2 (09:10→21:51)
[2020-11-01] MEDS: carvediloL 6.25 MG TABLET PO SCH ×2 (09:10→21:51)
[2020-11-01] MEDS: MULTIVITAMIN (CENTRUM) TABLET PEG SCH (09:10)
[2020-11-01] MEDS: LEVOFLOXACIN INJ 750 MG in PREMIX 1 EACH IV SCH (09:10)
[2020-11-01] MEDS: ASPIRIN CHEW 81 MG TABLET PO SCH (09:10)
[2020-11-01] MEDS: FAMOTIDINE 20 MG/2 ML VIAL IV SCH ×2 (12:35→21:51)
[2020-11-01] MEDS: ENOXAPARIN 40 MG/0.4 ML SYRINGE SUBCUT SCH (22:39)
[2020-11-02] MEDS: INSULIN REGULAR 100 UNIT/ML SUBCUT SCH ×4 (01:25→17:10)
[2020-11-02] MEDS: ALBUTEROL/IPRATROPIUM 3 ML NEB RESP TX SCH ×4 (02:46→19:57)
[2020-11-02] MEDS: MEROPENEM 500 MG in SODIUM CHLORIDE 0.9% 100 ML IV SCH ×2 (03:57→09:59)
[2020-11-02 05:45] LABS: Basophils % 0.4 % (0.0-0.8); Eosinophils # 0.5 10*3/uL (0.0-0.87); Hematocrit 33.2 VOL% (35.7-47.0); Hemoglobin 10.3 GM/DL (12.0-16.0); Immature Granulocytes % 0.8 %; Immature Granulocytes Absolute 0.06 #; Lymphocytes % 25.6 % (21.3-54.2); Mean Corpuscular Volume 104.1 FL (87-102); Mean Platelet Volume 13.1 FL (9.6-12.0); Neutrophils % 52.2 % (38.7-73.9); Platelet Count 232 T/CUMM (130-400); Red Blood Count 3.19 MC/CUMM (3.8-5.5); Red Cell Distribution Width 14.5 % (9.3-17.3); White Blood Count 7.8 T/CUMM (4-12)
[2020-11-02 05:59] LABS: Osmolality,Calculated 278.8 MOS/KG (273-304); Potassium 4.2 MMOL/L (3.5-5.1)
[2020-11-02] MEDS: ASPIRIN CHEW 81 MG TABLET PO SCH (09:55)
[2020-11-02] MEDS: MULTIVITAMIN (CENTRUM) TABLET PEG SCH (09:55)
[2020-11-02] MEDS: FUROSEMIDE 40 MG TABLET PEG SCH (09:55)
[2020-11-02] MEDS: DOCUSATE SODIUM 100 MG CAPSULE PEG SCH ×2 (09:55→21:04)
[2020-11-02] MEDS: guaiFENesin/DM ER 600-30 MG TABLET PO SCH ×2 (09:56→21:04)
[2020-11-02] MEDS: ISOSORBIDE DINITRATE 20 MG TABLET PO SCH (09:56)
[2020-11-02] MEDS: carvediloL 6.25 MG TABLET PO SCH ×2 (09:56→21:03)
[2020-11-02] MEDS: POLYETHYLENE GLYCOL POWDER 17 GM PACK PEG SCH (09:56)
[2020-11-02] MEDS: FAMOTIDINE 20 MG/2 ML VIAL IV SCH ×2 (09:57→21:04)
[2020-11-02] MEDS: LEVOFLOXACIN INJ 750 MG in PREMIX 1 EACH IV SCH (10:36)
[2020-11-02] MEDS: ERTAPENEM 1,000 MG in SODIUM CHLORIDE 0.9% 100 ML IV SCH (14:27)
[2020-11-02] MEDS: ENOXAPARIN 40 MG/0.4 ML SYRINGE SUBCUT SCH (23:20)
[2020-11-03] MEDS: ENOXAPARIN 40 MG/0.4 ML SYRINGE SUBCUT SCH (00:02)
[2020-11-03] MEDS: ALBUTEROL/IPRATROPIUM 3 ML NEB RESP TX SCH ×4 (00:34→19:17)
[2020-11-03] MEDS: INSULIN REGULAR 100 UNIT/ML SUBCUT SCH ×4 (01:44→17:46)
[2020-11-03 06:28] LABS: Basophils % 0.5 % (0.0-0.8); Eosinophils # 0.3 10*3/uL (0.0-0.87); Eosinophils % 4.2 % (0.00-10.9); Hematocrit 28.5 VOL% (35.7-47.0); Immature Granulocytes % 0.6 %; Immature Granulocytes Absolute 0.04 #; Lymphocytes # 1.6 10*3/uL (1.4-4.0); Lymphocytes % 24.4 % (21.3-54.2); Mean Corpuscular HGB Conc 31.6 GM/DL (32-36); Mean Corpuscular Volume 102.2 FL (87-102); Mean Platelet Volume 12.6 FL (9.6-12.0); Neutrophils % 54.3 % (38.7-73.9); Platelet Count 231 T/CUMM (130-400); Red Blood Count 2.79 MC/CUMM (3.8-5.5); Red Cell Distribution Width 14.6 % (9.3-17.3); White Blood Count 6.4 T/CUMM (4-12)
[2020-11-03 06:49] LABS: Eosinophils 6 % (0-10); Hypochromasia 1+; Lymphocytes 24 % (20-55); Microcytosis 1+; Platelet Estimate Adequate; Segmented Neutrophils 57 % (50-85); Total Cells Counted 100
[2020-11-03 07:01] LABS: Calcium 8.4 MG/DL (8.5-10.1); Osmolality,Calculated 282.5 MOS/KG (273-304); Potassium 4.3 MMOL/L (3.5-5.1)
[2020-11-03] MEDS: FUROSEMIDE 40 MG TABLET PEG SCH (09:10)
[2020-11-03] MEDS: MULTIVITAMIN (CENTRUM) TABLET PEG SCH (09:10)
[2020-11-03] MEDS: guaiFENesin/DM ER 600-30 MG TABLET PO SCH ×2 (09:10→22:16)
[2020-11-03] MEDS: ASPIRIN CHEW 81 MG TABLET PO SCH (09:10)
[2020-11-03] MEDS: carvediloL 6.25 MG TABLET PO SCH ×2 (09:10→22:16)
[2020-11-03] MEDS: ISOSORBIDE DINITRATE 20 MG TABLET PO SCH (09:10)
[2020-11-03] MEDS: FAMOTIDINE 20 MG/2 ML VIAL IV SCH ×2 (09:13→22:16)
[2020-11-03] MEDS: POLYETHYLENE GLYCOL POWDER 17 GM PACK PEG SCH (09:13)
[2020-11-03] MEDS: DOCUSATE SODIUM 100 MG CAPSULE PEG SCH ×2 (09:14→22:15)
[2020-11-03] MEDS: LEVOFLOXACIN INJ 750 MG in PREMIX 1 EACH IV SCH (09:55)
[2020-11-03] MEDS: ERTAPENEM 1,000 MG in SODIUM CHLORIDE 0.9% 100 ML IV SCH (14:45)
[2020-11-04] MEDS: ALBUTEROL/IPRATROPIUM 3 ML NEB RESP TX SCH ×4 (00:10→19:12)
[2020-11-04] MEDS: INSULIN REGULAR 100 UNIT/ML SUBCUT SCH ×4 (00:53→17:34)
[2020-11-04] MEDS: LEVOFLOXACIN INJ 750 MG in PREMIX 1 EACH IV SCH (09:26)
[2020-11-04] MEDS: FUROSEMIDE 40 MG TABLET PEG SCH (10:12)
[2020-11-04] MEDS: ISOSORBIDE DINITRATE 20 MG TABLET PO SCH (10:12)
[2020-11-04] MEDS: carvediloL 6.25 MG TABLET PO SCH ×2 (10:13→21:08)
[2020-11-04] MEDS: MULTIVITAMIN (CENTRUM) TABLET PEG SCH (10:13)
[2020-11-04] MEDS: POLYETHYLENE GLYCOL POWDER 17 GM PACK PEG SCH (10:13)
[2020-11-04] MEDS: guaiFENesin/DM ER 600-30 MG TABLET PO SCH ×2 (10:13→21:08)
[2020-11-04] MEDS: DOCUSATE SODIUM 100 MG CAPSULE PEG SCH ×2 (10:13→21:08)
[2020-11-04] MEDS: ASPIRIN CHEW 81 MG TABLET PO SCH (10:13)
[2020-11-04] MEDS: FAMOTIDINE 20 MG/2 ML VIAL IV SCH ×2 (10:14→23:44)
[2020-11-04] MEDS: ERTAPENEM 1,000 MG in SODIUM CHLORIDE 0.9% 100 ML IV SCH (14:23)
[2020-11-04] MEDS: ENOXAPARIN 40 MG/0.4 ML SYRINGE SUBCUT SCH (23:44)
[2020-11-05] MEDS: INSULIN REGULAR 100 UNIT/ML SUBCUT SCH ×5 (00:57→23:45)
[2020-11-05] MEDS: ALBUTEROL/IPRATROPIUM 3 ML NEB RESP TX SCH ×4 (02:37→18:45)
[2020-11-05] MEDS: FAMOTIDINE 20 MG/2 ML VIAL IV SCH ×2 (10:07→22:50)
[2020-11-05] MEDS: FUROSEMIDE 40 MG TABLET PEG SCH (10:07)
[2020-11-05] MEDS: DOCUSATE SODIUM 100 MG CAPSULE PEG SCH ×2 (10:08→20:23)
[2020-11-05] MEDS: guaiFENesin/DM ER 600-30 MG TABLET PO SCH ×2 (10:08→20:25)
[2020-11-05] MEDS: carvediloL 6.25 MG TABLET PO SCH ×2 (10:08→20:25)
[2020-11-05] MEDS: MULTIVITAMIN (CENTRUM) TABLET PEG SCH (10:08)
[2020-11-05] MEDS: LEVOFLOXACIN INJ 750 MG in PREMIX 1 EACH IV SCH (10:08)
[2020-11-05] MEDS: ASPIRIN CHEW 81 MG TABLET PO SCH (10:08)
[2020-11-05] MEDS: ISOSORBIDE DINITRATE 20 MG TABLET PO SCH (10:08)
[2020-11-05] MEDS: POLYETHYLENE GLYCOL POWDER 17 GM PACK PEG SCH (10:09)
[2020-11-05] MEDS: ERTAPENEM 1,000 MG in SODIUM CHLORIDE 0.9% 100 ML IV SCH (14:53)
[2020-11-05] MEDS: ENOXAPARIN 40 MG/0.4 ML SYRINGE SUBCUT SCH (22:50)
[2020-11-06] MEDS: ALBUTEROL/IPRATROPIUM 3 ML NEB RESP TX SCH ×4 (01:33→19:30)
[2020-11-06] MEDS: INSULIN REGULAR 100 UNIT/ML SUBCUT SCH ×3 (06:05→18:07)
[2020-11-06] MEDS: FAMOTIDINE 20 MG/2 ML VIAL IV SCH (09:42)
[2020-11-06] MEDS: guaiFENesin/DM ER 600-30 MG TABLET PO SCH ×2 (09:43→20:35)
[2020-11-06] MEDS: MULTIVITAMIN (CENTRUM) TABLET PEG SCH (09:43)
[2020-11-06] MEDS: DOCUSATE SODIUM 100 MG CAPSULE PEG SCH ×2 (09:44→20:35)
[2020-11-06] MEDS: FUROSEMIDE 40 MG TABLET PEG SCH (09:44)
[2020-11-06] MEDS: ISOSORBIDE DINITRATE 20 MG TABLET PO SCH (09:44)
[2020-11-06] MEDS: ASPIRIN CHEW 81 MG TABLET PO SCH (09:44)
[2020-11-06] MEDS: carvediloL 6.25 MG TABLET PO SCH ×2 (09:44→20:35)
[2020-11-06] MEDS: POLYETHYLENE GLYCOL POWDER 17 GM PACK PEG SCH (09:45)
[2020-11-06] MEDS: LEVOFLOXACIN INJ 750 MG in PREMIX 1 EACH IV SCH (09:46)
[2020-11-06] MEDS: ERTAPENEM 1,000 MG in SODIUM CHLORIDE 0.9% 100 ML IV SCH (15:27)
[2020-11-07] MEDS: INSULIN REGULAR 100 UNIT/ML SUBCUT SCH ×5 (00:24→23:27)
[2020-11-07] MEDS: FAMOTIDINE 20 MG/2 ML VIAL IV SCH ×3 (00:30→23:27)
[2020-11-07] MEDS: ENOXAPARIN 40 MG/0.4 ML SYRINGE SUBCUT SCH ×2 (00:33→23:26)
[2020-11-07] MEDS: ALBUTEROL/IPRATROPIUM 3 ML NEB RESP TX SCH ×4 (01:44→20:17)
[2020-11-07 05:24] LABS: Basophils # 0.1 10*3/uL (0.0-0.2); Basophils % 0.5 % (0.0-0.8); Eosinophils # 0.3 10*3/uL (0.0-0.87); Eosinophils % 2.5 % (0.00-10.9); Hematocrit 31.8 VOL% (35.7-47.0); Hemoglobin 9.8 GM/DL (12.0-16.0); Immature Granulocytes % 0.6 %; Immature Granulocytes Absolute 0.06 #; Lymphocytes # 1.9 10*3/uL (1.4-4.0); Lymphocytes % 18.7 % (21.3-54.2); Mean Corpuscular HGB Conc 30.8 GM/DL (32-36); Mean Corpuscular Volume 103.9 FL (87-102); Mean Platelet Volume 11.1 FL (9.6-12.0); Neutrophils % 66.7 % (38.7-73.9); Platelet Count 315 T/CUMM (130-400); Red Blood Count 3.06 MC/CUMM (3.8-5.5); Red Cell Distribution Width 15.2 % (9.3-17.3); White Blood Count 10.2 T/CUMM (4-12)
[2020-11-07 05:43] LABS: Alanine Aminotransferase 24 U/L (13-56); Albumin 2.3 G/DL (3.4-5.0); Alkaline Phosphatase 144 U/L (45-117); Aspartate Amino Transferase 21 U/L (0-37); Bilirubin,Total < 0.39 MG/DL (0.2-1.0); Blood Urea Nitrogen 32 MG/DL (7-18); Calcium 9.3 MG/DL (8.5-10.1); Carbon Dioxide 34 MMOL/L (21-32); Estimated Glom Filtration Rate 88 ML/MIN; Glucose 145 MG/DL (74-106); Osmolality,Calculated 303.3 MOS/KG (273-304); Potassium 3.6 MMOL/L (3.5-5.1); Sodium 148 MMOL/L (136-145); Total Protein 7.4 G/DL (6.4-8.3)
[2020-11-07] MEDS: ISOSORBIDE DINITRATE 20 MG TABLET PO SCH (09:15)
[2020-11-07] MEDS: DOCUSATE SODIUM 100 MG CAPSULE PEG SCH ×2 (09:15→21:38)
[2020-11-07] MEDS: guaiFENesin/DM ER 600-30 MG TABLET PO SCH ×2 (09:15→21:38)
[2020-11-07] MEDS: ASPIRIN CHEW 81 MG TABLET PO SCH (09:15)
[2020-11-07] MEDS: LEVOFLOXACIN INJ 750 MG in PREMIX 1 EACH IV SCH (09:15)
[2020-11-07] MEDS: MULTIVITAMIN (CENTRUM) TABLET PEG SCH (09:15)
[2020-11-07] MEDS: FUROSEMIDE 40 MG TABLET PEG SCH (09:15)
[2020-11-07] MEDS: POLYETHYLENE GLYCOL POWDER 17 GM PACK PEG SCH (09:16)
[2020-11-07] MEDS: carvediloL 6.25 MG TABLET PO SCH (09:16)
[2020-11-07] MEDS: LOSARTAN 25 MG TABLET PO SCH (13:11)
[2020-11-07] MEDS: ERTAPENEM 1,000 MG in SODIUM CHLORIDE 0.9% 100 ML IV SCH (15:12)
[2020-11-07] MEDS: carvediloL 12.5 MG TABLET PO SCH (21:38)
[2020-11-08] MEDS: ALBUTEROL/IPRATROPIUM 3 ML NEB RESP TX SCH ×4 (00:40→19:25)
[2020-11-08] MEDS: INSULIN REGULAR 100 UNIT/ML SUBCUT SCH ×3 (05:28→18:46)
[2020-11-08 06:25] LABS: PT Patient Result 11.2 SECS (9.8-11.9)
[2020-11-08 06:38] LABS: Calcium 9.5 MG/DL (8.5-10.1); Calcium 9.8 MG/DL (8.5-10.1); Osmolality,Calculated 293.8 MOS/KG (273-304); Osmolality,Calculated 295.7 MOS/KG (273-304); Potassium 4.4 MMOL/L (3.5-5.1); Potassium 4.8 MMOL/L (3.5-5.1)
[2020-11-08] MEDS: DOCUSATE SODIUM 100 MG CAPSULE PEG SCH ×2 (08:59→21:19)
[2020-11-08] MEDS: ASPIRIN CHEW 81 MG TABLET PO SCH (08:59)
[2020-11-08] MEDS: ISOSORBIDE DINITRATE 20 MG TABLET PO SCH (08:59)
[2020-11-08] MEDS: carvediloL 12.5 MG TABLET PO SCH ×2 (08:59→21:19)
[2020-11-08] MEDS: guaiFENesin/DM ER 600-30 MG TABLET PO SCH ×2 (08:59→21:19)
[2020-11-08] MEDS: LOSARTAN 25 MG TABLET PO SCH (08:59)
[2020-11-08] MEDS: MULTIVITAMIN (CENTRUM) TABLET PEG SCH (08:59)
[2020-11-08] MEDS: POLYETHYLENE GLYCOL POWDER 17 GM PACK PEG SCH (08:59)
[2020-11-08] MEDS: FUROSEMIDE 40 MG TABLET PEG SCH (08:59)
[2020-11-08] MEDS: FAMOTIDINE 20 MG/2 ML VIAL IV SCH ×2 (09:00→21:19)
[2020-11-08] MEDS: ERTAPENEM 1,000 MG in SODIUM CHLORIDE 0.9% 100 ML IV SCH (13:18)
[2020-11-09] MEDS: ALBUTEROL/IPRATROPIUM 3 ML NEB RESP TX SCH ×4 (00:30→18:40)
[2020-11-09] MEDS: INSULIN REGULAR 100 UNIT/ML SUBCUT SCH ×4 (00:31→18:08)
[2020-11-09] MEDS: ENOXAPARIN 40 MG/0.4 ML SYRINGE SUBCUT SCH ×2 (00:31→23:33)
[2020-11-09 05:57] LABS: Basophils # 0.1 10*3/uL (0.0-0.2); Basophils % 0.8 % (0.0-0.8); Eosinophils # 0.2 10*3/uL (0.0-0.87); Eosinophils % 2.8 % (0.00-10.9); Hematocrit 33.7 VOL% (35.7-47.0); Hemoglobin 10.8 GM/DL (12.0-16.0); Immature Granulocytes % 0.4 %; Immature Granulocytes Absolute 0.03 #; Lymphocytes % 25.1 % (21.3-54.2); Mean Corpuscular Volume 101.5 FL (87-102); Mean Platelet Volume 11.7 FL (9.6-12.0); Monocytes % 12.1 % (1.7-12.7); Neutrophils % 58.8 % (38.7-73.9); Platelet Count 317 T/CUMM (130-400); Red Blood Count 3.32 MC/CUMM (3.8-5.5); Red Cell Distribution Width 15.6 % (9.3-17.3); White Blood Count 7.9 T/CUMM (4-12)
[2020-11-09 06:33] LABS: Calcium 9.4 MG/DL (8.5-10.1); Osmolality,Calculated 294.8 MOS/KG (273-304); Potassium 3.8 MMOL/L (3.5-5.1)
[2020-11-09] MEDS: carvediloL 12.5 MG TABLET PO SCH ×2 (08:52→20:20)
[2020-11-09] MEDS: ISOSORBIDE DINITRATE 20 MG TABLET PO SCH (08:52)
[2020-11-09] MEDS: LOSARTAN 25 MG TABLET PO SCH (08:52)
[2020-11-09] MEDS: MULTIVITAMIN (CENTRUM) TABLET PEG SCH (08:52)
[2020-11-09] MEDS: guaiFENesin/DM ER 600-30 MG TABLET PO SCH ×2 (08:52→20:21)
[2020-11-09] MEDS: DOCUSATE SODIUM 100 MG CAPSULE PEG SCH ×2 (08:52→20:20)
[2020-11-09] MEDS: ASPIRIN CHEW 81 MG TABLET PO SCH (08:52)
[2020-11-09] MEDS: FUROSEMIDE 40 MG TABLET PEG SCH (08:52)
[2020-11-09] MEDS: POLYETHYLENE GLYCOL POWDER 17 GM PACK PEG SCH (08:53)
[2020-11-09] MEDS: FAMOTIDINE 20 MG/2 ML VIAL IV SCH ×2 (09:00→22:18)
[2020-11-09] MEDS: ERTAPENEM 1,000 MG in SODIUM CHLORIDE 0.9% 100 ML IV SCH (14:42)
[2020-11-10] MEDS: ALBUTEROL/IPRATROPIUM 3 ML NEB RESP TX SCH ×4 (00:32→19:48)
[2020-11-10] MEDS: INSULIN REGULAR 100 UNIT/ML SUBCUT SCH ×4 (00:38→18:23)
[2020-11-10 05:41] LABS: Basophils # 0.1 10*3/uL (0.0-0.2); Basophils % 0.6 % (0.0-0.8); Eosinophils # 0.3 10*3/uL (0.0-0.87); Eosinophils % 3.6 % (0.00-10.9); Hemoglobin 9.6 GM/DL (12.0-16.0); Immature Granulocytes % 0.4 %; Immature Granulocytes Absolute 0.03 #; Lymphocytes # 2.1 10*3/uL (1.4-4.0); Lymphocytes % 25.9 % (21.3-54.2); Mean Corpuscular Volume 101.4 FL (87-102); Mean Platelet Volume 12.3 FL (9.6-12.0); Monocytes % 12.5 % (1.7-12.7); Platelet Count 259 T/CUMM (130-400); Red Blood Count 2.96 MC/CUMM (3.8-5.5); Red Cell Distribution Width 15.4 % (9.3-17.3); White Blood Count 8.2 T/CUMM (4-12)
[2020-11-10 06:12] LABS: Calcium 8.1 MG/DL (8.5-10.1); Osmolality,Calculated 297.6 MOS/KG (273-304); Potassium 2.9 MMOL/L (3.5-5.1)
[2020-11-10] MEDS: POTASSIUM CHLORIDE 20 MEQ TABLET PO PRN ×2 (06:47→09:47)
[2020-11-10] MEDS: FUROSEMIDE 40 MG TABLET PEG SCH (09:46)
[2020-11-10] MEDS: ASPIRIN CHEW 81 MG TABLET PO SCH (09:46)
[2020-11-10] MEDS: MULTIVITAMIN (CENTRUM) TABLET PEG SCH (09:46)
[2020-11-10] MEDS: FAMOTIDINE 20 MG/2 ML VIAL IV SCH (09:46)
[2020-11-10] MEDS: guaiFENesin/DM ER 600-30 MG TABLET PO SCH ×2 (09:47→20:06)
[2020-11-10] MEDS: carvediloL 12.5 MG TABLET PO SCH ×2 (09:47→20:06)
[2020-11-10] MEDS: POLYETHYLENE GLYCOL POWDER 17 GM PACK PEG SCH (09:47)
[2020-11-10] MEDS: DOCUSATE SODIUM 100 MG CAPSULE PEG SCH ×2 (09:47→20:05)
[2020-11-10] MEDS: ISOSORBIDE DINITRATE 20 MG TABLET PO SCH (09:47)
[2020-11-10] MEDS: LOSARTAN 25 MG TABLET PO SCH (09:47)
[2020-11-10] MEDS ORDERED: POTASSIUM CHLORIDE 20 MEQ TABLET PO ONE (10:17)
[2020-11-11] MEDS: ENOXAPARIN 40 MG/0.4 ML SYRINGE SUBCUT SCH ×2 (00:07→23:41)
[2020-11-11] MEDS: FAMOTIDINE 20 MG/2 ML VIAL IV SCH ×3 (00:09→21:22)
[2020-11-11] MEDS: INSULIN REGULAR 100 UNIT/ML SUBCUT SCH ×5 (00:49→23:41)
[2020-11-11] MEDS: ALBUTEROL/IPRATROPIUM 3 ML NEB RESP TX SCH ×4 (02:07→19:23)
[2020-11-11 06:18] LABS: Basophils # 0.1 10*3/uL (0.0-0.2); Basophils % 0.8 % (0.0-0.8); Eosinophils # 0.3 10*3/uL (0.0-0.87); Eosinophils % 4.3 % (0.00-10.9); Hematocrit 32.8 VOL% (35.7-47.0); Hemoglobin 10.3 GM/DL (12.0-16.0); Immature Granulocytes % 0.4 %; Immature Granulocytes Absolute 0.03 #; Lymphocytes # 1.7 10*3/uL (1.4-4.0); Lymphocytes % 21.4 % (21.3-54.2); Mean Corpuscular HGB Conc 31.4 GM/DL (32-36); Mean Corpuscular Volume 102.5 FL (87-102); Mean Platelet Volume 12.6 FL (9.6-12.0); Monocytes % 11.9 % (1.7-12.7); Neutrophils % 61.2 % (38.7-73.9); Platelet Count 271 T/CUMM (130-400); Red Cell Distribution Width 15.5 % (9.3-17.3); White Blood Count 7.8 T/CUMM (4-12)
[2020-11-11 06:47] LABS: Calcium 8.8 MG/DL (8.5-10.1); Potassium 3.5 MMOL/L (3.5-5.1)
[2020-11-11] MEDS: MULTIVITAMIN (CENTRUM) TABLET PEG SCH (09:07)
[2020-11-11] MEDS: POLYETHYLENE GLYCOL POWDER 17 GM PACK PEG SCH (09:07)
[2020-11-11] MEDS: guaiFENesin/DM ER 600-30 MG TABLET PO SCH ×2 (09:07→21:22)
[2020-11-11] MEDS: ISOSORBIDE DINITRATE 20 MG TABLET PO SCH (09:07)
[2020-11-11] MEDS: ASPIRIN CHEW 81 MG TABLET PO SCH (09:07)
[2020-11-11] MEDS: carvediloL 12.5 MG TABLET PO SCH ×2 (09:07→21:22)
[2020-11-11] MEDS: FUROSEMIDE 40 MG TABLET PEG SCH (09:08)
[2020-11-11] MEDS: LOSARTAN 25 MG TABLET PO SCH (09:08)
[2020-11-11] MEDS: DOCUSATE SODIUM 100 MG CAPSULE PEG SCH ×2 (09:10→21:22)
[2020-11-12] MEDS: ALBUTEROL/IPRATROPIUM 3 ML NEB RESP TX SCH ×4 (00:01→19:42)
[2020-11-12] MEDS: INSULIN REGULAR 100 UNIT/ML SUBCUT SCH ×3 (05:52→17:06)
[2020-11-12 06:18] LABS: Calcium 8.9 MG/DL (8.5-10.1); Osmolality,Calculated 292.1 MOS/KG (273-304); Potassium 3.6 MMOL/L (3.5-5.1)
[2020-11-12] MEDS: ISOSORBIDE DINITRATE 20 MG TABLET PO SCH (09:30)
[2020-11-12] MEDS: carvediloL 12.5 MG TABLET PO SCH ×2 (09:30→21:59)
[2020-11-12] MEDS: guaiFENesin/DM ER 600-30 MG TABLET PO SCH ×2 (09:30→21:12)
[2020-11-12] MEDS: LOSARTAN 25 MG TABLET PO SCH (09:30)
[2020-11-12] MEDS: MULTIVITAMIN (CENTRUM) TABLET PEG SCH (09:30)
[2020-11-12] MEDS: ASPIRIN CHEW 81 MG TABLET PO SCH (09:30)
[2020-11-12] MEDS: FAMOTIDINE 20 MG/2 ML VIAL IV SCH ×2 (09:30→21:12)
[2020-11-12] MEDS: FUROSEMIDE 40 MG TABLET PEG SCH (09:30)
[2020-11-12] MEDS: DOCUSATE SODIUM 100 MG CAPSULE PEG SCH ×2 (09:30→21:12)
[2020-11-12] MEDS: POLYETHYLENE GLYCOL POWDER 17 GM PACK PEG SCH (09:31)
[2020-11-13] MEDS: ALBUTEROL/IPRATROPIUM 3 ML NEB RESP TX SCH ×4 (00:05→19:04)
[2020-11-13] MEDS: INSULIN REGULAR 100 UNIT/ML SUBCUT SCH ×4 (00:24→18:01)
[2020-11-13] MEDS: ENOXAPARIN 40 MG/0.4 ML SYRINGE SUBCUT SCH (00:38)
[2020-11-13] MEDS: FUROSEMIDE 40 MG TABLET PEG SCH (09:23)
[2020-11-13] MEDS: DOCUSATE SODIUM 100 MG CAPSULE PEG SCH ×2 (09:23→21:51)
[2020-11-13] MEDS: ISOSORBIDE DINITRATE 20 MG TABLET PO SCH (09:23)
[2020-11-13] MEDS: LOSARTAN 25 MG TABLET PO SCH (09:23)
[2020-11-13] MEDS: guaiFENesin/DM ER 600-30 MG TABLET PO SCH ×2 (09:23→21:51)
[2020-11-13] MEDS: MULTIVITAMIN (CENTRUM) TABLET PEG SCH (09:23)
[2020-11-13] MEDS: ASPIRIN CHEW 81 MG TABLET PO SCH (09:23)
[2020-11-13] MEDS: carvediloL 12.5 MG TABLET PO SCH ×2 (09:23→21:49)
[2020-11-13] MEDS: FAMOTIDINE 20 MG/2 ML VIAL IV SCH ×2 (09:24→21:51)
[2020-11-13] MEDS: POLYETHYLENE GLYCOL POWDER 17 GM PACK PEG SCH (09:24)
[2020-11-14] MEDS: ENOXAPARIN 40 MG/0.4 ML SYRINGE SUBCUT SCH ×2 (00:25→23:13)
[2020-11-14] MEDS: INSULIN REGULAR 100 UNIT/ML SUBCUT SCH ×4 (00:26→18:34)
[2020-11-14] MEDS: ALBUTEROL/IPRATROPIUM 3 ML NEB RESP TX SCH ×4 (00:50→19:56)
[2020-11-14] MEDS: ASPIRIN CHEW 81 MG TABLET PO SCH (10:21)
[2020-11-14] MEDS: POLYETHYLENE GLYCOL POWDER 17 GM PACK PEG SCH (10:21)
[2020-11-14] MEDS: FUROSEMIDE 40 MG TABLET PEG SCH (10:21)
[2020-11-14] MEDS: ISOSORBIDE DINITRATE 20 MG TABLET PO SCH (10:21)
[2020-11-14] MEDS: MULTIVITAMIN (CENTRUM) TABLET PEG SCH (10:22)
[2020-11-14] MEDS: guaiFENesin/DM ER 600-30 MG TABLET PO SCH ×2 (10:22→20:20)
[2020-11-14] MEDS: carvediloL 12.5 MG TABLET PO SCH ×2 (10:22→20:20)
[2020-11-14] MEDS: LOSARTAN 25 MG TABLET PO SCH (10:22)
[2020-11-14] MEDS: DOCUSATE SODIUM 100 MG CAPSULE PEG SCH ×2 (10:23→20:20)
[2020-11-14] MEDS: FAMOTIDINE 20 MG/2 ML VIAL IV SCH ×2 (14:06→23:13)
[2020-11-15] MEDS: ALBUTEROL/IPRATROPIUM 3 ML NEB RESP TX SCH ×2 (00:27→07:30)
[2020-11-15] MEDS: INSULIN REGULAR 100 UNIT/ML SUBCUT SCH ×3 (00:40→11:50)
[2020-11-15] MEDS: DOCUSATE SODIUM 100 MG CAPSULE PEG SCH (09:44)
[2020-11-15] MEDS: POLYETHYLENE GLYCOL POWDER 17 GM PACK PEG SCH (09:44)
[2020-11-15] MEDS: LOSARTAN 25 MG TABLET PO SCH (09:44)
[2020-11-15] MEDS: guaiFENesin/DM ER 600-30 MG TABLET PO SCH (09:45)
[2020-11-15] MEDS: FAMOTIDINE 20 MG/2 ML VIAL IV SCH (09:45)
[2020-11-15] MEDS: ISOSORBIDE DINITRATE 20 MG TABLET PO SCH (09:45)
[2020-11-15] MEDS: carvediloL 12.5 MG TABLET PO SCH (09:45)
[2020-11-15] MEDS: FUROSEMIDE 40 MG TABLET PEG SCH (09:45)
[2020-11-15] MEDS: ASPIRIN CHEW 81 MG TABLET PO SCH (09:45)
[2020-11-15] MEDS: MULTIVITAMIN (CENTRUM) TABLET PEG SCH (09:45)
[2020-11-15 11:58] VITALS: BP 121/67
== END 2020-11-15 14:20 | DRG 720 ==
LOC: N.EDINP 19:26 → N.ED 19:26 → SUATTDRO 23:19 → N.5E 10-26 16:00 → N.ICU 10-26 17:32 → SUATTDRO 10-27 07:40 → N.TELEN 11-01 15:26
PROVIDERS: ADMIT Internal Medicine; ATTEND Emergency Medicine

== ENCOUNTER 2021-05-14 16:59 | Inpatient (IN) ==
[2021-05-14 18:00] LABS: Basophils % 0.3 % (0.0-0.8); Eosinophils # 0.2 10*3/uL (0.0-0.87); Hematocrit 44.2 VOL% (35.7-47.0); Hemoglobin 13.7 GM/DL (12.0-16.0); Immature Granulocytes % 0.5 %; Immature Granulocytes Absolute 0.05 #; Lymphocytes # 1.3 10*3/uL (1.4-4.0); Lymphocytes % 13.9 % (21.3-54.2); Mean Corpuscular Volume 98.7 FL (87-102); Mean Platelet Volume 13.4 FL (9.6-12.0); Monocytes % 7.6 % (1.7-12.7); Neutrophils % 75.7 % (38.7-73.9); Platelet Count 183 T/CUMM (130-400); Red Blood Count 4.48 MC/CUMM (3.8-5.5); Red Cell Distribution Width 15.2 % (9.3-17.3); White Blood Count 9.4 T/CUMM (4-12)
[2021-05-14] MEDS ORDERED: PIPERACILLIN/TAZOBACTAM 3,375 MG in SODIUM CHLORIDE 0.9% 100 ML IV STA (18:28)
[2021-05-14] MEDS ORDERED: ONDANSETRON 4 MG/2 ML VIAL IV STA (18:28)
[2021-05-14 18:32] LABS: Alanine Aminotransferase 26 U/L (13-56); Albumin 3.3 G/DL (3.4-5.0); Alkaline Phosphatase 139 U/L (45-117); Aspartate Amino Transferase 25 U/L (0-37); Bilirubin,Total < 0.39 MG/DL (0.20-1.00); Blood Urea Nitrogen 38 MG/DL (7-18); Calcium 9.8 MG/DL (8.5-10.1); Carbon Dioxide 29 MMOL/L (21-32); Estimated Glom Filtration Rate 100 ML/MIN; Glucose 176 MG/DL (74-106); Osmolality,Calculated 293.3 MOS/KG (273-304); Potassium 3.9 MMOL/L (3.5-5.1); Sodium 141 MMOL/L (136-145)
[2021-05-14 19:20] LABS: Hypochromasia 1+; Microcytosis 1+
[2021-05-14 20:11] LABS: PT Patient Result 10.9 SECS (10.5-12.0)
[2021-05-14] MEDS ORDERED: ALBUTEROL/IPRATROPIUM 3 ML NEB RESP TX STA (20:35)
[2021-05-14] MEDS ORDERED: hydrALAZINE 20 MG/1 ML VIAL ONE (20:35)
[2021-05-14] MEDS ORDERED: hydrALAZINE 20 MG/1 ML VIAL IV STA (20:35)
[2021-05-14] MEDS ORDERED: methylPREDNISolone SOD SUC 125 MG/2 ML VIAL IV STA (20:42)
[2021-05-14] MEDS ORDERED: DEXTROSE 50% 25 GM/50 ML VIAL IV PRN ×2 (21:05→21:49)
[2021-05-14] MEDS ORDERED: GLUCAGON 1 MG VIAL IM PRN (21:05)
[2021-05-14] MEDS ORDERED: ACETAMINOPHEN 325 MG/10.15 ML UDCUP PO PRN (21:13)
[2021-05-14] MEDS ORDERED: VANCOMYCIN INJ 2,000 MG in SODIUM CHLORIDE 0.9% 500 ML IV ONE (21:15)
[2021-05-14] MEDS ORDERED: FUROSEMIDE 40 MG TABLET PEG PRN (22:09)
[2021-05-14] MEDS: ENOXAPARIN 40 MG/0.4 ML SYRINGE SUBCUT SCH (22:17)
[2021-05-14] MEDS: carvediloL 12.5 MG TABLET PER TUBE SCH (23:32)
[2021-05-14] MEDS: INSULIN LISPRO 100 UNIT/ML SUBCUT SCH (23:33)
[2021-05-15] MEDS: ALBUTEROL 0.63 MG/3 ML NEB RESP TX SCH ×4 (00:02→19:45)
[2021-05-15 01:20] LABS: Calcium 9.5 MG/DL (8.5-10.1); Osmolality,Calculated 294.1 MOS/KG (273-304)
[2021-05-15 01:22] LABS: Basophils # 0.1 10*3/uL (0.0-0.2); Basophils % 0.4 % (0.0-0.8); Eosinophils % 0.2 % (0.00-10.9); Hematocrit 43.7 VOL% (35.7-47.0); Hemoglobin 13.9 GM/DL (12.0-16.0); Immature Granulocytes % 0.4 %; Immature Granulocytes Absolute 0.05 #; Lymphocytes # 0.8 10*3/uL (1.4-4.0); Lymphocytes % 5.9 % (21.3-54.2); Mean Corpuscular HGB Conc 31.8 GM/DL (32-36); Mean Corpuscular Volume 98.2 FL (87-102); Mean Platelet Volume 13.7 FL (9.6-12.0); Monocytes % 2.1 % (1.7-12.7); Platelet Count 157 T/CUMM (130-400); Red Blood Count 4.45 MC/CUMM (3.8-5.5); Red Cell Distribution Width 15.2 % (9.3-17.3); White Blood Count 13.5 T/CUMM (4-12)
[2021-05-15 01:50] LABS: Lymphocytes 5 % (20-55); Platelet Estimate Normal; Segmented Neutrophils 93 % (50-85); Total Cells Counted 100
[2021-05-15] MEDS ORDERED: MINERAL OIL ENEMA 133 ML BOTTLE RECTAL ONE (02:45)
[2021-05-15] MEDS ORDERED: LACTATED RINGERS 1,000 ML IV SCH (03:00)
[2021-05-15] MEDS: PIPERACILLIN/TAZOBACTAM 3,375 MG in SODIUM CHLORIDE 0.9% 100 ML IV SCH ×3 (06:06→22:16)
[2021-05-15] MEDS: INSULIN LISPRO 100 UNIT/ML SUBCUT SCH ×3 (06:36→17:01)
[2021-05-15] MEDS: carvediloL 12.5 MG TABLET PER TUBE SCH ×2 (10:01→22:16)
[2021-05-15] MEDS: LOSARTAN 50 MG TABLET PER TUBE SCH (10:01)
[2021-05-15] MEDS: ISOSORBIDE DINITRATE 20 MG TABLET PER TUBE SCH (10:01)
[2021-05-15] MEDS: POLYETHYLENE GLYCOL POWDER 17 GM PACK PEG SCH (10:01)
[2021-05-15] MEDS: ASPIRIN CHEW 81 MG TABLET PO SCH (10:01)
[2021-05-15] MEDS: VANCOMYCIN INJ 1,250 MG in SODIUM CHLORIDE 0.9% 250 ML IV SCH (10:40)
[2021-05-15] MEDS: ENOXAPARIN 40 MG/0.4 ML SYRINGE SUBCUT SCH (22:16)
[2021-05-16] MEDS: ALBUTEROL 0.63 MG/3 ML NEB RESP TX SCH ×4 (00:50→19:30)
[2021-05-16] MEDS: INSULIN LISPRO 100 UNIT/ML SUBCUT SCH ×4 (01:54→18:18)
[2021-05-16] MEDS: VANCOMYCIN INJ 1,250 MG in SODIUM CHLORIDE 0.9% 250 ML IV SCH ×2 (02:53→16:03)
[2021-05-16] MEDS: PIPERACILLIN/TAZOBACTAM 3,375 MG in SODIUM CHLORIDE 0.9% 100 ML IV SCH ×3 (06:19→22:44)
[2021-05-16 06:39] LABS: Basophils % 0.2 % (0.0-0.8); Eosinophils % 0.2 % (0.00-10.9); Hematocrit 38.7 VOL% (35.7-47.0); Hemoglobin 12.1 GM/DL (12.0-16.0); Immature Granulocytes % 0.5 %; Immature Granulocytes Absolute 0.05 #; Lymphocytes # 1.5 10*3/uL (1.4-4.0); Lymphocytes % 13.5 % (21.3-54.2); Mean Corpuscular HGB Conc 31.3 GM/DL (32-36); Mean Corpuscular Volume 97.7 FL (87-102); Mean Platelet Volume 14.2 FL (9.6-12.0); Monocytes % 14.1 % (1.7-12.7); Neutrophils % 71.5 % (38.7-73.9); Platelet Count 161 T/CUMM (130-400); Red Blood Count 3.96 MC/CUMM (3.8-5.5); Red Cell Distribution Width 15.5 % (9.3-17.3)
[2021-05-16 07:05] LABS: Calcium 9.3 MG/DL (8.5-10.1); Osmolality,Calculated 303.7 MOS/KG (273-304); Potassium 3.7 MMOL/L (3.5-5.1)
[2021-05-16 07:06] LABS: Alanine Aminotransferase 20 U/L (13-56); Albumin 2.9 G/DL (3.4-5.0); Alkaline Phosphatase 118 U/L (45-117); Aspartate Amino Transferase 17 U/L (0-37); Bilirubin,Total < 0.39 MG/DL (0.20-1.00); Blood Urea Nitrogen 48 MG/DL (7-18); Carbon Dioxide 29 MMOL/L (21-32); Estimated Glom Filtration Rate 86 ML/MIN; Glucose 148 MG/DL (74-106); Osmolality,Calculated 303.7 MOS/KG (273-304); Potassium 3.8 MMOL/L (3.5-5.1); Sodium 145 MMOL/L (136-145); Total Protein 6.6 G/DL (6.4-8.2)
[2021-05-16] MEDS: POLYETHYLENE GLYCOL POWDER 17 GM PACK PEG SCH (09:34)
[2021-05-16] MEDS: carvediloL 12.5 MG TABLET PER TUBE SCH ×2 (09:35→22:44)
[2021-05-16] MEDS: ASPIRIN CHEW 81 MG TABLET PO SCH (09:35)
[2021-05-16] MEDS: ISOSORBIDE DINITRATE 20 MG TABLET PER TUBE SCH (09:35)
[2021-05-16] MEDS: LOSARTAN 50 MG TABLET PER TUBE SCH (09:35)
[2021-05-16] MEDS: ENOXAPARIN 40 MG/0.4 ML SYRINGE SUBCUT SCH (22:44)
[2021-05-17] MEDS: ALBUTEROL 0.63 MG/3 ML NEB RESP TX SCH ×4 (01:28→21:00)
[2021-05-17] MEDS: INSULIN LISPRO 100 UNIT/ML SUBCUT SCH ×5 (01:45→23:46)
[2021-05-17] MEDS: VANCOMYCIN INJ 1,250 MG in SODIUM CHLORIDE 0.9% 250 ML IV SCH (03:01)
[2021-05-17] MEDS: PIPERACILLIN/TAZOBACTAM 3,375 MG in SODIUM CHLORIDE 0.9% 100 ML IV SCH (05:53)
[2021-05-17] MEDS: POLYETHYLENE GLYCOL POWDER 17 GM PACK PEG SCH (08:50)
[2021-05-17] MEDS: carvediloL 12.5 MG TABLET PER TUBE SCH ×2 (08:50→20:58)
[2021-05-17] MEDS: LOSARTAN 50 MG TABLET PER TUBE SCH (08:50)
[2021-05-17] MEDS: ASPIRIN CHEW 81 MG TABLET PO SCH (08:50)
[2021-05-17] MEDS: ISOSORBIDE DINITRATE 20 MG TABLET PER TUBE SCH (08:50)
[2021-05-17] MEDS: CLINDAMYCIN 300 MG CAPSULE PO SCH ×2 (13:32→21:01)
[2021-05-17] MEDS: ENOXAPARIN 40 MG/0.4 ML SYRINGE SUBCUT SCH (20:57)
[2021-05-18] MEDS: ALBUTEROL 0.63 MG/3 ML NEB RESP TX SCH ×2 (00:32→07:22)
[2021-05-18] MEDS: CLINDAMYCIN 300 MG CAPSULE PO SCH (06:07)
[2021-05-18] MEDS: INSULIN LISPRO 100 UNIT/ML SUBCUT SCH (06:09)
[2021-05-18 08:39] VITALS: BP 145/44
[2021-05-18] MEDS: ASPIRIN CHEW 81 MG TABLET PO SCH (09:30)
[2021-05-18] MEDS: POLYETHYLENE GLYCOL POWDER 17 GM PACK PEG SCH (09:30)
[2021-05-18] MEDS: ISOSORBIDE DINITRATE 20 MG TABLET PER TUBE SCH (09:30)
[2021-05-18] MEDS: carvediloL 12.5 MG TABLET PER TUBE SCH (09:30)
[2021-05-18] MEDS: LOSARTAN 50 MG TABLET PER TUBE SCH (09:30)
== END 2021-05-18 11:55 | DRG 137 ==
LOC: EDBD → EDUNIT# → N.EDINP 16:59 → N.ED 16:59 → N.TELEN 22:59
PROVIDERS: ADMIT Internal Medicine; ATTEND Internal Medicine

== ENCOUNTER 2021-12-06 13:42 | Inpatient (IN) ==
[2021-12-06 16:25] LABS: Basophils % 0.2 % (0.0-0.8); Eosinophils # 0.1 10*3/uL (0.0-0.87); Eosinophils % 0.5 % (0.00-10.9); Hematocrit 43.5 VOL% (35.7-47.0); Hemoglobin 13.7 GM/DL (12.0-16.0); Immature Granulocytes % 0.3 %; Immature Granulocytes Absolute 0.04 #; Lymphocytes # 0.9 10*3/uL (1.4-4.0); Lymphocytes % 6.8 % (21.3-54.2); Mean Corpuscular HGB Conc 31.5 GM/DL (32-36); Mean Corpuscular Volume 101.9 FL (87-102); Neutrophils % 82.2 % (38.7-73.9); Platelet Count 130 T/CUMM (130-400); Red Blood Count 4.27 MC/CUMM (3.8-5.5); Red Cell Distribution Width 15.3 % (9.3-17.3)
[2021-12-06 16:45] LABS: Bacteria,Urine Occasional /HPF (Few); Bilirubin,Urine Negative (Negative); Blood, Urine Negative (Negative); Glucose,Urine (UA) Negative (Negative); Ketones,Urine Negative (Negative); Nitrite,Urine Negative (Negative); Protein,Urine Negative; Squamous Epithelial Cell,Urine Occasional /HPF (0-10); Urine Appearance Clear (Clear); Urine Color Light Yellow (Yellow); Urine Specific Gravity 1.015 (1.001-1.035); Urine Urobilinogen < 2.0 EU/DL (<2.0)
[2021-12-06 16:57] LABS: Albumin 3.2 G/DL (3.4-5.0); Bilirubin,Total 0.4 MG/DL (0.20-1.00); Osmolality,Calculated 297.7 MOS/KG (273-304); Potassium 3.9 MMOL/L (3.5-5.1)
[2021-12-06] MEDS ORDERED: SODIUM CHLORIDE 0.9% 1,000 ML IV STA (17:26)
[2021-12-06] MEDS ORDERED: ONDANSETRON 4 MG/2 ML VIAL IV PRN (19:00)
[2021-12-06] MEDS ORDERED: GLUCAGON 1 MG VIAL IM PRN (19:00)
[2021-12-06] MEDS: SODIUM CHLORIDE 0.45% 1,000 ML IV SCH (19:10)
[2021-12-06] MEDS ORDERED: DEXTROSE 10% 250 ML BAG IV PRN (19:26)
[2021-12-06] MEDS ORDERED: ENOXAPARIN 40 MG/0.4 ML SYRINGE SUBCUT SCH (21:00)
[2021-12-06] MEDS: cefTRIAXone 1,000 MG in SODIUM CHLORIDE 0.9% 100 ML IV SCH (21:56)
[2021-12-07] MEDS: INSULIN REGULAR 100 UNIT/ML SUBCUT SCH ×4 (01:18→17:42)
[2021-12-07 06:39] LABS: Basophils % 0.2 % (0.0-0.8); Eosinophils # 0.2 10*3/uL (0.0-0.87); Eosinophils % 1.5 % (0.00-10.9); Hematocrit 40.4 VOL% (35.7-47.0); Hemoglobin 12.8 GM/DL (12.0-16.0); Immature Granulocytes % 0.4 %; Immature Granulocytes Absolute 0.05 #; Lymphocytes # 1.9 10*3/uL (1.4-4.0); Lymphocytes % 14.5 % (21.3-54.2); Mean Corpuscular HGB Conc 31.7 GM/DL (32-36); Mean Corpuscular Volume 100.7 FL (87-102); Mean Platelet Volume 14.3 FL (9.6-12.0); Monocytes % 9.2 % (1.7-12.7); Neutrophils % 74.2 % (38.7-73.9); Platelet Count 156 T/CUMM (130-400); Red Blood Count 4.01 MC/CUMM (3.8-5.5); Red Cell Distribution Width 15.5 % (9.3-17.3); White Blood Count 13.4 T/CUMM (4-12)
[2021-12-07 06:51] LABS: Calcium 9.7 MG/DL (8.5-10.1); Osmolality,Calculated 302.8 MOS/KG (273-304); Potassium 3.4 MMOL/L (3.5-5.1)
[2021-12-07] MEDS: PANTOPRAZOLE 40 MG VIAL IV SCH (09:01)
[2021-12-07] MEDS: BISACODYL 5 MG TABLET PEG SCH ×2 (11:36→19:09)
[2021-12-07] MEDS ORDERED: POLYETHYLENE GLYCOL 3350/ELECTROLYTES 4,000 ML BOTTLE PER TUBE ONE (15:00)
[2021-12-07] MEDS: SODIUM CHLORIDE 0.45% 1,000 ML IV SCH (16:14)
[2021-12-07] MEDS ORDERED: MAGNESIUM CITRATE 300 ML BOTTLE PO ONE (21:00)
[2021-12-07] MEDS: cefTRIAXone 1,000 MG in SODIUM CHLORIDE 0.9% 100 ML IV SCH (21:28)
[2021-12-08] MEDS: INSULIN REGULAR 100 UNIT/ML SUBCUT SCH ×4 (01:25→18:04)
[2021-12-08] MEDS: BISACODYL 5 MG TABLET PEG SCH (03:44)
[2021-12-08 06:17] LABS: Basophils % 0.3 % (0.0-0.8); Eosinophils # 0.1 10*3/uL (0.0-0.87); Eosinophils % 0.8 % (0.00-10.9); Hematocrit 39.9 VOL% (35.7-47.0); Hemoglobin 12.5 GM/DL (12.0-16.0); Immature Granulocytes % 0.4 %; Immature Granulocytes Absolute 0.05 #; Lymphocytes # 1.9 10*3/uL (1.4-4.0); Lymphocytes % 15.3 % (21.3-54.2); Mean Corpuscular HGB Conc 31.3 GM/DL (32-36); Mean Platelet Volume 13.4 FL (9.6-12.0); Monocytes % 12.2 % (1.7-12.7); Platelet Count 144 T/CUMM (130-400); Red Blood Count 3.91 MC/CUMM (3.8-5.5); Red Cell Distribution Width 15.7 % (9.3-17.3); White Blood Count 12.4 T/CUMM (4-12)
[2021-12-08 06:26] LABS: Calcium 8.9 MG/DL (8.5-10.1); Osmolality,Calculated 301.6 MOS/KG (273-304); Potassium 3.6 MMOL/L (3.5-5.1)
[2021-12-08] MEDS ORDERED: LACTATED RINGERS 1,000 ML IV SCH (08:20)
[2021-12-08] MEDS ORDERED: propofoL 200 MG/20 ML VIAL IV ONE (08:31)
[2021-12-08] MEDS ORDERED: LIDOCAINE 2% 5 ML VIAL ONE (08:31)
[2021-12-08] MEDS ORDERED: ETOMIDATE 20 MG/10 ML VIAL IV ONE (08:31)
[2021-12-08] MEDS: PANTOPRAZOLE 40 MG VIAL IV SCH (10:17)
[2021-12-08] MEDS: cefTRIAXone 1,000 MG in SODIUM CHLORIDE 0.9% 100 ML IV SCH (22:34)
[2021-12-08] MEDS: POLYETHYLENE GLYCOL POWDER 17 GM PACK PEG SCH (22:34)
[2021-12-09] MEDS: INSULIN REGULAR 100 UNIT/ML SUBCUT SCH ×4 (00:46→18:10)
[2021-12-09 05:42] LABS: Basophils # 0.1 10*3/uL (0.0-0.2); Basophils % 0.7 % (0.0-0.8); Eosinophils # 0.5 10*3/uL (0.0-0.87); Eosinophils % 4.4 % (0.00-10.9); Hematocrit 39.4 VOL% (35.7-47.0); Hemoglobin 11.9 GM/DL (12.0-16.0); Immature Granulocytes % 0.4 %; Immature Granulocytes Absolute 0.04 #; Lymphocytes # 1.9 10*3/uL (1.4-4.0); Lymphocytes % 18.3 % (21.3-54.2); Mean Corpuscular HGB Conc 30.2 GM/DL (32-36); Mean Corpuscular Volume 102.3 FL (87-102); Mean Platelet Volume 13.7 FL (9.6-12.0); Monocytes % 14.7 % (1.7-12.7); Neutrophils % 61.5 % (38.7-73.9); Platelet Count 131 T/CUMM (130-400); Red Blood Count 3.85 MC/CUMM (3.8-5.5); Red Cell Distribution Width 15.4 % (9.3-17.3); White Blood Count 10.3 T/CUMM (4-12)
[2021-12-09 05:57] LABS: Calcium 9.2 MG/DL (8.5-10.1); Potassium 3.5 MMOL/L (3.5-5.1)
[2021-12-09 06:07] LABS: Osmolality,Calculated 299.4 MOS/KG (273-304)
[2021-12-09 06:16] LABS: Platelet Estimate Adequate
[2021-12-09 06:17] LABS: Anisocytosis 1+; Macrocytosis 1+
[2021-12-09] MEDS: PANTOPRAZOLE 40 MG VIAL IV SCH (10:19)
[2021-12-09] MEDS: POLYETHYLENE GLYCOL POWDER 17 GM PACK PEG SCH (10:20)
[2021-12-10] MEDS: POLYETHYLENE GLYCOL POWDER 17 GM PACK PEG SCH ×3 (00:55→23:37)
[2021-12-10] MEDS: cefTRIAXone 1,000 MG in SODIUM CHLORIDE 0.9% 100 ML IV SCH ×2 (01:35→23:34)
[2021-12-10] MEDS: INSULIN REGULAR 100 UNIT/ML SUBCUT SCH ×5 (01:45→23:50)
[2021-12-10 06:28] LABS: Basophils # 0.1 10*3/uL (0.0-0.2); Basophils % 0.5 % (0.0-0.8); Eosinophils # 0.3 10*3/uL (0.0-0.87); Eosinophils % 2.9 % (0.00-10.9); Hematocrit 40.5 VOL% (35.7-47.0); Hemoglobin 12.5 GM/DL (12.0-16.0); Immature Granulocytes % 0.3 %; Immature Granulocytes Absolute 0.03 #; Lymphocytes # 1.8 10*3/uL (1.4-4.0); Lymphocytes % 16.3 % (21.3-54.2); Mean Corpuscular HGB Conc 30.9 GM/DL (32-36); Mean Corpuscular Volume 101.8 FL (87-102); Mean Platelet Volume 13.6 FL (9.6-12.0); Platelet Count 135 T/CUMM (130-400); Red Blood Count 3.98 MC/CUMM (3.8-5.5); Red Cell Distribution Width 15.5 % (9.3-17.3); White Blood Count 10.8 T/CUMM (4-12)
[2021-12-10 06:45] LABS: Osmolality,Calculated 309.7 MOS/KG (273-304); Potassium 3.9 MMOL/L (3.5-5.1)
[2021-12-10] MEDS: PANTOPRAZOLE 40 MG VIAL IV SCH (11:02)
[2021-12-10] MEDS: DEXTROSE 5% 1,000 ML IV SCH ×2 (11:17→23:37)
[2021-12-11 06:29] LABS: Osmolality,Calculated 299.6 MOS/KG (273-304); Potassium 4.5 MMOL/L (3.5-5.1)
[2021-12-11 06:33] LABS: Basophils # 0.1 10*3/uL (0.0-0.2); Basophils % 0.6 % (0.0-0.8); Eosinophils # 0.4 10*3/uL (0.0-0.87); Hematocrit 41.5 VOL% (35.7-47.0); Hemoglobin 13.1 GM/DL (12.0-16.0); Immature Granulocytes % 0.5 %; Immature Granulocytes Absolute 0.05 #; Lymphocytes % 21.5 % (21.3-54.2); Mean Corpuscular HGB Conc 31.6 GM/DL (32-36); Mean Corpuscular Volume 101.2 FL (87-102); Mean Platelet Volume 13.4 FL (9.6-12.0); Monocytes % 12.8 % (1.7-12.7); Neutrophils % 60.6 % (38.7-73.9); Platelet Count 133 T/CUMM (130-400); Red Cell Distribution Width 15.5 % (9.3-17.3); White Blood Count 9.2 T/CUMM (4-12)
[2021-12-11] MEDS: INSULIN REGULAR 100 UNIT/ML SUBCUT SCH ×3 (07:18→18:11)
[2021-12-11] MEDS: PANTOPRAZOLE 40 MG VIAL IV SCH (09:39)
[2021-12-11] MEDS: POLYETHYLENE GLYCOL POWDER 17 GM PACK PEG SCH ×2 (09:39→22:34)
[2021-12-11] MEDS ORDERED: metroNIDAZOLE INJ 500 MG/100 ML PREMIX IV ONE (11:30)
[2021-12-11] MEDS: SODIUM CHLORIDE 0.45% 1,000 ML IV SCH (13:59)
[2021-12-11] MEDS: DEXTROSE 5% 1,000 ML IV SCH (14:20)
[2021-12-11] MEDS: cefTRIAXone 1,000 MG in SODIUM CHLORIDE 0.9% 100 ML IV SCH (22:33)
[2021-12-12] MEDS: INSULIN REGULAR 100 UNIT/ML SUBCUT SCH ×4 (00:46→18:33)
[2021-12-12] MEDS: DEXTROSE 5% 1,000 ML IV SCH ×2 (04:00→19:33)
[2021-12-12 06:01] LABS: Basophils # 0.1 10*3/uL (0.0-0.2); Basophils % 0.7 % (0.0-0.8); Eosinophils # 0.5 10*3/uL (0.0-0.87); Eosinophils % 4.7 % (0.00-10.9); Hematocrit 39.9 VOL% (35.7-47.0); Hemoglobin 12.5 GM/DL (12.0-16.0); Immature Granulocytes % 0.6 %; Immature Granulocytes Absolute 0.06 #; Lymphocytes # 2.4 10*3/uL (1.4-4.0); Lymphocytes % 23.4 % (21.3-54.2); Mean Corpuscular HGB Conc 31.3 GM/DL (32-36); Mean Platelet Volume 13.6 FL (9.6-12.0); Neutrophils % 56.6 % (38.7-73.9); Platelet Count 136 T/CUMM (130-400); Red Blood Count 3.99 MC/CUMM (3.8-5.5); Red Cell Distribution Width 15.1 % (9.3-17.3); White Blood Count 10.1 T/CUMM (4-12)
[2021-12-12 06:11] LABS: Calcium 9.3 MG/DL (8.5-10.1); Potassium 4.2 MMOL/L (3.5-5.1)
[2021-12-12] MEDS ORDERED: metroNIDAZOLE INJ 500 MG/100 ML PREMIX IV ONE (06:30)
[2021-12-12] MEDS ORDERED: LIDOCAINE 2% 5 ML VIAL ONE (11:14)
[2021-12-12] MEDS ORDERED: ETOMIDATE 40 MG/20 ML VIAL IV ONE (11:14)
[2021-12-12] MEDS ORDERED: propofoL 200 MG/20 ML VIAL IV ONE (11:14)
[2021-12-12] MEDS ORDERED: MIDAZOLAM 2 MG/2 ML VIAL ONE ×2 (11:14→13:08)
[2021-12-12] MEDS ORDERED: ROCURONIUM 50 MG/5 ML VIAL IV ONE (11:14)
[2021-12-12] MEDS ORDERED: SEVOFLURANE 1 UNIT/15 MINUTE INH ONE (11:14)
[2021-12-12] MEDS ORDERED: fentaNYL 100 MCG/2 ML VIAL ONE ×2 (11:14→13:10)
[2021-12-12] MEDS: LACTATED RINGERS 1,000 ML IV SCH ×2 (11:56→13:53)
[2021-12-12] MEDS ORDERED: SUGAMMADEX 200 MG/2 ML VIAL IV ONE (13:07)
[2021-12-12] MEDS: PANTOPRAZOLE 40 MG VIAL IV SCH (15:01)
[2021-12-12] MEDS ORDERED: MORPHINE 2 MG/1 ML SYRINGE IV PRN (15:37)
[2021-12-12] MEDS: POLYETHYLENE GLYCOL POWDER 17 GM PACK PEG SCH ×2 (15:37→22:09)
[2021-12-12] MEDS: cefTRIAXone 1,000 MG in SODIUM CHLORIDE 0.9% 100 ML IV SCH (22:09)
[2021-12-13] MEDS: INSULIN REGULAR 100 UNIT/ML SUBCUT SCH ×4 (00:54→18:39)
[2021-12-13] MEDS: DEXTROSE 5% 1,000 ML IV SCH ×3 (01:00→18:35)
[2021-12-13] MEDS: PANTOPRAZOLE 40 MG VIAL IV SCH (09:37)
[2021-12-13] MEDS: POLYETHYLENE GLYCOL POWDER 17 GM PACK PEG SCH ×2 (09:37→22:40)
[2021-12-13] MEDS: cefTRIAXone 1,000 MG in SODIUM CHLORIDE 0.9% 100 ML IV SCH (22:40)
[2021-12-14] MEDS: cefTRIAXone 1,000 MG in SODIUM CHLORIDE 0.9% 100 ML IV SCH (02:43)
[2021-12-14] MEDS: INSULIN REGULAR 100 UNIT/ML SUBCUT SCH ×4 (02:51→17:17)
[2021-12-14] MEDS: DEXTROSE 5% 1,000 ML IV SCH (06:30)
[2021-12-14 06:49] LABS: Calcium 8.3 MG/DL (8.5-10.1); Potassium 4.5 MMOL/L (3.5-5.1)
[2021-12-14] MEDS: PANTOPRAZOLE 40 MG VIAL IV SCH (10:48)
[2021-12-14] MEDS: POLYETHYLENE GLYCOL POWDER 17 GM PACK PEG SCH ×2 (10:48→22:24)
[2021-12-15] MEDS: INSULIN REGULAR 100 UNIT/ML SUBCUT SCH ×3 (00:44→13:33)
[2021-12-15] MEDS ORDERED: OMEPRAZOLE ODT 20 MG TABLET PO SCH (09:00)
[2021-12-15] MEDS: POLYETHYLENE GLYCOL POWDER 17 GM PACK PEG SCH (09:27)
[2021-12-15 10:34] LABS: HIV Antigen/Antibody Result Nonreactive (Nonreactive); Hepatitis B Surface Ag Quant 0.13 Index; Hepatitis B Surface Ag Result Non-Reactive (NonReactive); Hepatitis C Virus Ab Quant 0.16 Index; Hepatitis C Virus Ab Result Non-Reactive (NonReactive)
[2021-12-15 12:43] VITALS: BP 131/64
== END 2021-12-15 15:35 | DRG 231 ==
LOC: EDUNIT# → EDBD → N.5E 13:42 → N.ED 13:42 → N.5E 20:28
PROVIDERS: ADMIT Hospitalist; ATTEND Hospitalist